=== PATIENT | female | born 1990 | race Two or more races ===

== ENCOUNTER 2020-05-16 13:51 | Outpatient (REF) | payer OTHER, SELFPAY | END 2020-05-16 13:52 | disposition home or self-care (01) | LOC: HO.LAB 13:51 | PROVIDERS: Visit Provider Internal Medicine | DX: Z20.822 Contact with and (suspected) exposure to COVID-19 (principal) | CPT/HCPCS: 36415; C9803; U0003 ==

== ENCOUNTER 2020-06-09 11:56 | Outpatient (REF) | payer OTHER, SELFPAY | END 2020-06-09 11:57 | disposition home or self-care (01) | LOC: HO.LAB 11:56 | PROVIDERS: Visit Provider Internal Medicine | DX: Z20.822 Contact with and (suspected) exposure to COVID-19 (principal) | CPT/HCPCS: 36415; C9803; U0003; U0005 ==

== ENCOUNTER 2023-06-03 09:28 | Outpatient (REF) | payer MEDICAID, SELFPAY ==
[2023-06-03 11:21] LABS: MANUAL DIFF FLAG NO
[2023-06-03 11:26] LABS: Basophils Absolute Auto 0.1 X10*3/uL (0.0-0.2); Basophils Percent Auto 0.7 % (0-2); Eosinophils Absolute Auto 0.2 X10*3/uL (0.0-0.4); Eosinophils Percent Auto 2.2 % (0-4); Hematocrit 44.4 % (37.0-47.0); Hemoglobin 14.3 g/dl (12.0-16.0); Imm Gran Abs Auto 0.01 X10*3/uL (0.00-0.03); Imm Gran Pct Auto 0.1 % (0.0-0.4); Lymphocytes Percent Auto 25.7 % (20-40); Mean Corpuscular HGB Conc 32.2 g/dl (31.0-35.0); Mean Corpuscular Hemoglobin 27.4 pg (27.0-33.0); Mean Corpuscular Volume 85.2 fL (80.0-98.0); Monocytes Absolute Auto 0.6 X10*3/uL (0.1-1.2); Monocytes Percent Auto 7.6 % (2-11); Neutrophils Absolute Auto 4.8 x10*3/uL (2.0-8.3); Neutrophils Percent Auto 63.7 % (45-73); Platelet Count 179 X10*3/uL (160-400); Red Blood Count 5.21 X10*6/uL (4.20-5.50); Red Cell Distribution Width 15.2 % (11.0-16.0); White Blood Count 7.6 X10*3/uL (4.8-10.8)
[2023-06-03 11:54] LABS: Estimated Average Glucose 105 mg/dL; Hemoglobin A1c % 5.3 % (<6.0)
[2023-06-03 12:27] LABS: Alanine Aminotransferase 44 U/L (0-31); Albumin Level 4.6 g/dL (3.5-5.0); Alkaline Phosphatase 74 U/L (39-117); Anion Gap 15 (12-20); Aspartate Amino Transferase 23 U/L (5-31); Bilirubin Total 0.3 mg/dL (0.0-1.0); Blood Urea Nitrogen 17 mg/dL (9-16); Calcium 10.1 mg/dL (8.4-10.2); Carbon Dioxide 24 mmol/L (22-29); Chloride 106 mmol/L (96-108); Cholesterol 216 mg/dL (<200); Estimated Glomerular Filt Rate > 60; Glucose Random 97 mg/dL (60-115); HDL Cholesterol 67 mg/dL (>40); LDL Cholesterol Calculated 127 mg/dL (<100); Potassium 4.4 mmol/L (3.3-5.1); Sodium 141 mmol/L (135-145); Total Protein 8.3 g/dL (6.5-8.0); Triglycerides 112 mg/dL (<150)
[2023-06-03 12:52] LABS: Ferritin 49 ng/mL (10-122); TSH reflex Free T4 2.45 uIU/mL (0.32-4.0); Vitamin D 25-OH Total 23.4 ng/mL (>30)
[2023-06-03 13:19] LABS: Syphilis Screen Nonreactive (Nonreactive)
[2023-06-03 13:45] LABS: Reflex LDLD? No
[2023-06-04 07:24] LABS: Follicle Stimulating Hormone 5.4 mIU/mL; Lutenizing Hormone 13.3 mIU/mL
[2023-06-05 19:33] LABS: C. trachomatis RNA TMA NOT DETECTED (NOT DETECTED); Candida glabrata RNA NOT DETECTED (NOT DETECTED); Candida species RNA NOT DETECTED (NOT DETECTED); N. gonorrhoeae RNA TMA NOT DETECTED (NOT DETECTED); Trichomonas vaginalis RNA NOT DETECTED (NOT DETECTED)
== END 2023-06-03 09:29 | disposition home or self-care (01) ==
LOC: HO.HHCL 09:28
PROVIDERS: Visit Provider Internal Medicine
DX: N93.8 Other specified abnormal uterine and vaginal bleeding (principal)
CPT/HCPCS: 36415; 80053; 80061; 81513; 82306; 82728; 83001; 83002; 83036; 84443; 85025; 86780; 87086; 87088; 87186; 87481; 87491; 87591; 87661

== ENCOUNTER 2023-07-19 10:03 | Outpatient (REF) | payer MEDICAID, SELFPAY ==
[2023-07-19 11:41] LABS: MANUAL DIFF FLAG NO
[2023-07-19 11:47] LABS: Basophils Absolute Auto 0.1 X10*3/uL (0.0-0.2); Basophils Percent Auto 0.8 % (0-2); Eosinophils Absolute Auto 0.2 X10*3/uL (0.0-0.4); Eosinophils Percent Auto 2.8 % (0-4); Hematocrit 42.8 % (37.0-47.0); Hemoglobin 13.9 g/dl (12.0-16.0); Imm Gran Abs Auto 0.03 X10*3/uL (0.00-0.03); Imm Gran Pct Auto 0.4 % (0.0-0.4); Lymphocytes Absolute Auto 1.7 X10*3/uL (1.2-4.9); Lymphocytes Percent Auto 22.4 % (20-40); Mean Corpuscular HGB Conc 32.5 g/dl (31.0-35.0); Mean Corpuscular Hemoglobin 27.3 pg (27.0-33.0); Mean Corpuscular Volume 83.9 fL (80.0-98.0); Mean Platelet Volume 11.3 fL (9.4-12.3); Monocytes Absolute Auto 0.5 X10*3/uL (0.1-1.2); Monocytes Percent Auto 7.2 % (2-11); Neutrophils Absolute Auto 4.9 x10*3/uL (2.0-8.3); Neutrophils Percent Auto 66.4 % (45-73); Platelet Count 219 X10*3/uL (160-400); Red Cell Distribution Width 15.9 % (11.0-16.0); White Blood Count 7.5 X10*3/uL (4.8-10.8)
[2023-07-19 12:14] LABS: Alanine Aminotransferase 103 U/L (0-31); Albumin Level 4.4 g/dL (3.5-5.0); Alkaline Phosphatase 86 U/L (39-117); Anion Gap 12 (12-20); Aspartate Amino Transferase 31 U/L (5-31); Bilirubin Total 0.4 mg/dL (0.0-1.0); Blood Urea Nitrogen 16 mg/dL (9-16); Calcium 9.5 mg/dL (8.4-10.2); Carbon Dioxide 26 mmol/L (22-29); Chloride 107 mmol/L (96-108); Cholesterol 222 mg/dL (<200); Estimated Glomerular Filt Rate > 60; Glucose Random 93 mg/dL (60-115); HDL Cholesterol 63 mg/dL (>40); LDL Cholesterol Calculated 144 mg/dL (<100); Potassium 4.7 mmol/L (3.3-5.1); Sodium 140 mmol/L (135-145); Total Protein 7.7 g/dL (6.5-8.0); Triglycerides 77 mg/dL (<150)
[2023-07-19 17:10] LABS: CT PCR NOT DETECTED (Not Detect.); NG PCR NOT DETECTED (Not Detect.)
[2023-07-22 09:20] LABS: RPR Rapid Plasma Reagin NON-REACTIVE (NON-REACTIVE)
[2023-07-23 19:43] LABS: HIV RNA PCR Qn Copies Not Detected Copies/mL; HIV RNA PCR Qn Log Copies Not Detected Log cps/mL
== END 2023-07-19 10:04 | disposition home or self-care (01) ==
LOC: HO.HHCL 10:03
PROVIDERS: Visit Provider Nurse Practitioner Family
DX: Z00.00 Encounter for general adult medical examination without abnormal findings (principal); N93.8 Other specified abnormal uterine and vaginal bleeding; E66.01 Morbid (severe) obesity due to excess calories
CPT/HCPCS: 0353U; 36415; 80053; 80061; 85025; 86592; 87536; 87900

== ENCOUNTER 2023-08-04 04:01 | Emergency (ER) | payer MEDICAID, SELFPAY ==
[2023-08-04 04:14] VITALS: BP 110/98; PULSE 100; O2SAT 93
[2023-08-04 04:16] VITALS: BP 104/68; PULSE 100; RESP 22; TEMP 37; O2SAT 100; BMI 46.3
--- NOTE | 2023-08-04 04:29 | ED_ITS ---
HPI - Nausea/Vomiting/Diarrhea General Chief complaint: Abdominal Pain Stated complaint: NAUSEA/VOMMITING Time Seen by Provider: 08/04/23 04:11 Source: patient and old records reviewed Mode of arrival: EMS Limitations: no limitations History of Present Illness HPI Narrative: 32 yo female with no sig PMH s/p tubal ligation ate shrimp and crab legs yesterday developed n/v/d and abdominal cramps since 8pm now feels weak and tired. Unable to keep anything down other than ice. No sick contacts, travel or any other exposures/antibiotic use. MD elicited complaint: nausea, vomiting, diarrhea and abdominal pain Onset (ago): day(s) (yesterday 8pm) Description of vomiting: food contents and watery Description of diarrhea: watery Associated nausea: Yes Associated abdominal pain: Yes Location of pain: diffuse Radiation: diffuse Pain consistency: intermittent Severity: moderate Quality: cramping Exacerbating factors: eating Relieving factors: none Context: possible food poisoning Associated symptoms: loss of appetite, malaise, nausea/vomiting and weakness Related Data Previous Rx's Medication Instructions Recorded ondansetron 4 mg disintegrating 4 mg PO Q8H PRN nausea and 08/04/23 tablet vomiting #20 tabs Allergies Allergy/AdvReac Type Severity Reaction Status Date / Time No Known Allergies Allergy Unverified 01/21/20 19:25 [No Known Allergies*] Review of Systems 2 Review of Systems: Constitutional : No Weight loss, No Fever, No Chills ENT/Mouth : No sore throat, No Rhinorrhea Eyes: No Swelling, No Redness Cardiovascular : No Chest Pain, No SOB, NoEdema Respiratory : No Cough, No Sputum, No Wheezing Gastrointestinal : Positive Nausea, Positive Vomiting, positive Diarrhea, positive abdominal Pain, No Hematochezia, No Melena Genitourinary : No Dysuria, No Urinary Frequency, No Hematuria, No Urgency Musculoskeletal : No joint pain, No Myalgias, No Joint Swelling Skin : No Skin Lesions, No rash Neuro : No Weakness, No Numbness, No Dizziness, No Headache Psych : No Anxiety/Panic, No Depression Heme/Lymph: No Bruising, No Lymphadenopathy Endocrine : No Polyuria, No Polydipsia All other systems reviewed and are negative. Gastrointestinal: Gastrointestinal: Reports nausea PMFSH Past Medical History Attestation statement: The following information was validated with the patient. Source: old records reviewed Medical History No pertinent past medical history Social History Social History (Updated 08/04/23 @ 04:46 by Theresa Bull DO) Patient Tobacco Use Status: Never used Tobacco Smoked in Last 30 Days: No Use of substances other than those prescribed or required for medical reasons: No Advance Directives: No Advance Directives Information Provided: No Physical Exam 2 Vital Signs: Vital Signs: Last Vital Signs Temp 98.6 F 08/04/23 04:16 Pulse 100 08/04/23 04:16 Resp 22 H 08/04/23 04:16 BP 104/68 08/04/23 04:16 Pulse Ox 100 08/04/23 04:16 O2 Del Method Room Air 08/04/23 04:16 BMI result Body Mass Index 46.3 Appearance: Alert. Oriented X3. No acute distress. Eyes: Pupils equal, round and reactive to light. ENT: Pharynx mildly dry MM Neck: Normal inspection. Neck supple. CVS: Normal heart rate and rhythm. Pulses normal. Respiratory: No respiratory distress. Breath sounds normal. Abdomen: Soft and nontender. Skin: Skin warm and dry. Normal skin color. Normal skin turgor. Extremities: No lower extremity edema. No calf ttp Neuro: Oriented X 3. No motor deficit. No sensory deficit. Medications Administered Discontinued Medications Generic Name Dose Route Start Last Admin Trade Name Freq PRN Reason Stop Dose Admin Diphenhydramine HCl 25 mg 08/04/23 04:24 08/04/23 04:36 Diphenhydramine Hcl 50 Mg/Ml Vial IVPUSH 08/04/23 04:25 25 mg ONCE ONE Administration Sodium Chloride 1,000 mls @ 999 mls/hr 08/04/23 04:30 08/04/23 04:36 Ns IV 08/04/23 05:30 999 mls/hr .Q1H1M JAMES Administration Sodium Chloride 1,000 mls @ 999 mls/hr 08/04/23 04:30 08/04/23 04:36 Ns IV 08/04/23 05:30 999 mls/hr .Q1H1M JAMES Administration Ketorolac Tromethamine 15 mg 08/04/23 04:24 08/04/23 04:35 Ketorolac Tromethamine 15 Mg/Ml Vial IVPUSH 08/04/23 04:25 15 mg ONCE ONE Administration Metoclopramide HCl 10 mg 08/04/23 04:24 08/04/23 04:36 Metoclopramide Hcl 10 Mg/2 Ml Vial IVPUSH 08/04/23 04:25 10 mg ONCE ONE Administration Medical Decision Making Medical Decision Making MDM Narrative: 32 yo female with no sig PMH here with c/o n/v/d and diffuse abdominal cramps at this time will need basic labs, IVF, supportive medications. She has no localized pain at this time to suggest acute appendicitis or cholecystitis. She is not toxic appearing. Differential Diagnosis Differential Diagnoses: The differential diagnosis associated with the presentation includes food toxicity, viral syndrome Admission/Observation Consideration of admission/observation: Escalation of care including admission/observation considered tolerating PO feels much better discussed slight elevation in blood sugar and she will follow up with her PCP, LFTs at baseline Lab Data MDM Lab Attestation statement: I reviewed the patient's lab results. 08/04/23 04:51 08/04/23 04:51 Labs: Lab Results 08/04/23 08/04/23 Range/Units 04:46 04:51 WBC 13.7 H (4.8-10.8) X10*3/uL RBC 5.11 (4.20-5.50) X10*6/uL Hgb 14.0 (12.0-16.0) g/dl Hct 42.9 (37.0-47.0) % MCV 84.0 (80.0-98.0) fL MCH 27.4 (27.0-33.0) pg MCHC 32.6 (31.0-35.0) g/dl RDW 15.7 (11.0-16.0) % Plt Count 220 (160-400) X10*3/uL MPV 10.2 (9.4-12.3) fL Immature Gran % (Auto) 0.6 H (0.0-0.4) % Neut % (Auto) 90.4 H (45-73) % Lymph % (Auto) 2.7 L (20-40) % [place] % (Auto) 5.0 (2-11) % Eos % (Auto) 0.9 (0-4) % Baso % (Auto) 0.4 (0-2) % Lymph # (Auto) 0.4 L (1.2-4.9) X10*3/uL [place] # (Auto) 0.7 (0.1-1.2) X10*3/uL Eos # (Auto) 0.1 (0.0-0.4) X10*3/uL Baso # (Auto) 0.1 (0.0-0.2) X10*3/uL Abs Immat Gran (auto) 0.08 H (0.00-0.03) X10*3/uL Absolute Neuts (auto) 12.4 H (2.0-8.3) x10*3/uL Absolute Nucleated RBC 0.000 (0.0-0.012) X10*3/uL Nucleated RBC % (auto) 0.0 (0.0-0.2) /100WBC Smear Tech's Comments VERIFIED Sodium 138 (135-145) mmol/L Potassium 3.8 (3.3-5.1) mmol/L Chloride 104 (96-108) mmol/L Carbon Dioxide 26 (22-29) mmol/L Anion Gap 12 (12-20) BUN 27 H (9-16) mg/dL Creatinine 0.82 (0.5-1.4) mg/dL Estim Creat Clear Calc 134.9 Estimated GFR > 60 Random Glucose 166 H (60-115) mg/dL Calcium 8.8 D (8.4-10.2) mg/dL Magnesium 2.1 (1.6-2.6) mg/dL Total Bilirubin 0.6 (0.0-1.0) mg/dL Direct Bilirubin 0.2 (0.0-0.5) mg/dL AST 32 H (5-31) U/L ALT 66 H (0-31) U/L Alkaline Phosphatase 77 (39-117) U/L Total Protein 7.2 (6.5-8.0) g/dL Albumin 4.1 (3.5-5.0) g/dL Lipase 11 (8-78) U/L Beta HCG, Quant < 2 mIU/mL Influenza Type A (PCR) NEGATIVE (Negative) Influenza Type B (PCR) NEGATIVE (Negative) RSV RNA Qual (PCR) NEGATIVE (Negative) SARS-CoV-2 RNA (RT-PCR) NEGATIVE (Negative) External Record Review External record reviewed: Inpatient record Prescription Management I considered prescription management with: Other Discharge Plan Discharge Clinical Impression: Abdominal pain, vomiting, and diarrhea Patient Disposition: Home, Self-Care Instructions: Acute Nausea and Vomiting (ED), Acute Diarrhea (ED) Additional Instructions: bland diet - bananas apple sauce rice toast yogurt stay hydrated advance diet slowly over 48 hours return for worsening symptoms or concerns - pain, fevers, inability to eat or drink, bloody stools or any other concerns. NEGATIVE FOR FLU COVID RSV Prescriptions: New ondansetron 4 mg tablet,disintegrating 4 mg PO Q8H PRN (Reason: nausea and vomiting) Qty: 20 0RF Stand Alone Forms: Work/School Release Print Language: Polish
[2023-08-04] MEDS: Ketorolac Tromethamine 15 MG/ML VIAL IVPUSH (04:35)
[2023-08-04] MEDS: 0.9 % Sodium Chloride 1,000 ML 999 ML IV ×2 (04:36)
[2023-08-04] MEDS: diphenhydrAMINE HCL 50 MG/ML VIAL 25 MG IVPUSH (04:36)
[2023-08-04] MEDS: Metoclopramide HCl 10 MG/2 ML VIAL IVPUSH (04:36)
--- NOTE | 2023-08-04 04:46 | PC.NURSE ---
Pt medicated per jul. Plan of care ongoing.
[2023-08-04 05:03] LABS: Basophils Absolute Auto 0.1 X10*3/uL (0.0-0.2); Basophils Percent Auto 0.4 % (0-2); Eosinophils Absolute Auto 0.1 X10*3/uL (0.0-0.4); Eosinophils Percent Auto 0.9 % (0-4); Hematocrit 42.9 % (37.0-47.0); Imm Gran Abs Auto 0.08 X10*3/uL (0.00-0.03); Imm Gran Pct Auto 0.6 % (0.0-0.4); Lymphocytes Absolute Auto 0.4 X10*3/uL (1.2-4.9); Lymphocytes Percent Auto 2.7 % (20-40); MANUAL DIFF FLAG SCAN; Mean Corpuscular HGB Conc 32.6 g/dl (31.0-35.0); Mean Corpuscular Hemoglobin 27.4 pg (27.0-33.0); Mean Platelet Volume 10.2 fL (9.4-12.3); Monocytes Absolute Auto 0.7 X10*3/uL (0.1-1.2); Neutrophils Absolute Auto 12.4 x10*3/uL (2.0-8.3); Neutrophils Percent Auto 90.4 % (45-73); Platelet Count 220 X10*3/uL (160-400); Red Blood Count 5.11 X10*6/uL (4.20-5.50); Red Cell Distribution Width 15.7 % (11.0-16.0); SCAN SMEAR FLAG 1; White Blood Count 13.7 X10*3/uL (4.8-10.8)
[2023-08-04 05:29] LABS: Alanine Aminotransferase 66 U/L (0-31); Albumin Level 4.1 g/dL (3.5-5.0); Alkaline Phosphatase 77 U/L (39-117); Anion Gap 12 (12-20); Aspartate Amino Transferase 32 U/L (5-31); Bilirubin Direct 0.2 mg/dL (0.0-0.5); Bilirubin Total 0.6 mg/dL (0.0-1.0); Blood Urea Nitrogen 27 mg/dL (9-16); Calcium 8.8 mg/dL (8.4-10.2); Carbon Dioxide 26 mmol/L (22-29); Chloride 104 mmol/L (96-108); Creatinine Clr Calc Pharmacy 134.9; Estimated Glomerular Filt Rate > 60; Glucose Random 166 mg/dL (60-115); Lipase 11 U/L (8-78); Magnesium 2.1 mg/dL (1.6-2.6); Potassium 3.8 mmol/L (3.3-5.1); Sodium 138 mmol/L (135-145); Total Protein 7.2 g/dL (6.5-8.0)
[2023-08-04 05:32] LABS: HCG Quantitative < 2 mIU/mL; SLIDE REVIEW VERIFIED
[2023-08-04 05:42] LABS: Influenza A PCR NEGATIVE (Negative); Influenza B PCR NEGATIVE (Negative); Resp Syncy Virus RNA Qual PCR NEGATIVE (Negative); SARS COV2 PCR INHOUSE NEGATIVE (Negative)
[2023-08-04 06:38] VITALS: BP 110/70; PULSE 100; RESP 12; TEMP 37; O2SAT 100
[2023-08-04 06:39] VITALS: BP 110/70; PULSE 100; RESP 12; TEMP 37; O2SAT 100
== END 2023-08-04 06:44 | disposition home or self-care (01) ==
PROVIDERS: Emergency Provider Emergency Medicine
DX: R10.9 Unspecified abdominal pain (principal); R11.10 Vomiting, unspecified; R19.7 Diarrhea, unspecified
CPT/HCPCS: 0241U; 36415; 80048; 80076; 83690; 83735; 84702; 85025; 96361; 96374; 96375; 99284; 99285; J1200; J1885; J2765

== ENCOUNTER 2023-08-07 12:07 | Outpatient (REF) | payer MEDICAID, SELFPAY ==
[2023-08-07 13:23] LABS: MANUAL DIFF FLAG NO
[2023-08-07 13:46] LABS: Basophils Absolute Auto 0.1 X10*3/uL (0.0-0.2); Basophils Percent Auto 0.5 % (0-2); Eosinophils Absolute Auto 0.2 X10*3/uL (0.0-0.4); Eosinophils Percent Auto 2.1 % (0-4); Hematocrit 42.6 % (37.0-47.0); Hemoglobin 13.9 g/dl (12.0-16.0); Imm Gran Abs Auto 0.06 X10*3/uL (0.00-0.03); Imm Gran Pct Auto 0.6 % (0.0-0.4); Lymphocytes Absolute Auto 2.5 X10*3/uL (1.2-4.9); Mean Corpuscular HGB Conc 32.6 g/dl (31.0-35.0); Mean Corpuscular Hemoglobin 27.5 pg (27.0-33.0); Mean Corpuscular Volume 84.2 fL (80.0-98.0); Mean Platelet Volume 11.5 fL (9.4-12.3); Monocytes Absolute Auto 0.7 X10*3/uL (0.1-1.2); Monocytes Percent Auto 7.3 % (2-11); Neutrophils Percent Auto 63.5 % (45-73); Platelet Count 226 X10*3/uL (160-400); Red Blood Count 5.06 X10*6/uL (4.20-5.50); Red Cell Distribution Width 15.8 % (11.0-16.0); White Blood Count 9.4 X10*3/uL (4.8-10.8)
[2023-08-07 14:09] LABS: Alanine Aminotransferase 75 U/L (0-31); Albumin Level 4.1 g/dL (3.5-5.0); Alkaline Phosphatase 85 U/L (39-117); Anion Gap 12 (12-20); Aspartate Amino Transferase 32 U/L (5-31); Bilirubin Total 0.2 mg/dL (0.0-1.0); Blood Urea Nitrogen 15 mg/dL (9-16); Calcium 9.3 mg/dL (8.4-10.2); Carbon Dioxide 25 mmol/L (22-29); Chloride 108 mmol/L (96-108); Estimated Glomerular Filt Rate > 60; Glucose Random 89 mg/dL (60-115); Lipase 18 U/L (8-78); Potassium 4.5 mmol/L (3.3-5.1); Sodium 140 mmol/L (135-145); Total Protein 7.8 g/dL (6.5-8.0)
[2023-08-08 07:24] LABS: HBS Num1 > 1000.00 mIU/mL (0-7.99); HBc Num1 0.07 S/CO (0.00-0.79); HBsAGNum1 0.33 S/CO (0.00-0.99); Hepatitis A Antibody IgM 0.23 Index (0-0.79); Hepatitis B Core Antibody Nonreactive (Nonreactive); Hepatitis B Surface Antigen Negative (Negative); ~HepC Num1 0.09 S/CO (0.00-0.79); ~Hepatitis A Antibody IgM Nonreactive (Nonreactive); ~Hepatitis B Surface Antibody REACTIVE (Nonreactive); ~Hepatitis C Antibody Nonreactive (Nonreactive)
[2023-08-09 02:32] LABS: C. trachomatis RNA TMA NOT DETECTED (NOT DETECTED); Candida glabrata RNA NOT DETECTED (NOT DETECTED); Candida species RNA NOT DETECTED (NOT DETECTED); N. gonorrhoeae RNA TMA NOT DETECTED (NOT DETECTED); Trichomonas vaginalis RNA NOT DETECTED (NOT DETECTED)
== END 2023-08-07 12:08 | disposition home or self-care (01) ==
LOC: HO.HHCL 12:07
PROVIDERS: Visit Provider Emergency Medicine
DX: R11.2 Nausea with vomiting, unspecified (principal)
CPT/HCPCS: 36415; 80053; 81513; 83690; 85025; 86704; 86706; 86709; 86803; 87086; 87147; 87340; 87481; 87491; 87591; 87661

== ENCOUNTER 2023-11-25 13:48 | Outpatient (REF) | payer MEDICAID, SELFPAY ==
[2023-11-26 02:08] LABS: CT PCR NOT DETECTED (Not Detect.); NG PCR NOT DETECTED (Not Detect.)
[2023-11-26 09:34] LABS: Bacterial Vaginosis PCR NEGATIVE (Negative); Candida Group PCR NOT DETECTED (Not Detect); Candida glab krusei PCR NOT DETECTED (Not Detect); Trichomonas vaginalis PCR NOT DETECTED (Not Detect)
[2023-11-27 22:38] LABS: TS Negative Control Passed; TS Panel A 2; TS Panel B 1; TS Positive Control Passed; TSpotTB Negative (Negative)
== END 2023-11-25 13:49 | disposition home or self-care (01) ==
LOC: HO.HHCL 13:48
PROVIDERS: Visit Provider Nurse Practitioner Family
DX: Z00.00 Encounter for general adult medical examination without abnormal findings (principal); N93.8 Other specified abnormal uterine and vaginal bleeding
CPT/HCPCS: 0352U; 36415; 86481; 87491; 87591

== ENCOUNTER 2024-01-29 10:00 | Outpatient (RCR) | payer MEDICAID, SELFPAY | END 2024-03-02 12:36 | disposition home or self-care (01) | LOC: HO.PT 10:00 | PROVIDERS: PCP Nurse Practitioner Family; Visit Provider Nurse Practitioner Family | DX: M54.9 Dorsalgia, unspecified (principal) | CPT/HCPCS: 97110; 97140; 97161 ==

== ENCOUNTER 2024-03-24 15:45 | Outpatient (REF) | payer MEDICAID, SELFPAY ==
[2024-03-24 17:31] LABS: MANUAL DIFF FLAG NO
[2024-03-24 17:36] LABS: Basophils Absolute Auto 0.1 X10*3/uL (0.0-0.2); Basophils Percent Auto 0.9 % (0-2); Eosinophils Absolute Auto 0.4 X10*3/uL (0.0-0.4); Hematocrit 41.6 % (37.0-47.0); Hemoglobin 13.5 g/dl (12.0-16.0); Imm Gran Abs Auto 0.04 X10*3/uL (0.00-0.03); Imm Gran Pct Auto 0.5 % (0.0-0.4); Lymphocytes Absolute Auto 2.6 X10*3/uL (1.2-4.9); Lymphocytes Percent Auto 31.8 % (20-40); Mean Corpuscular HGB Conc 32.5 g/dl (31.0-35.0); Mean Corpuscular Hemoglobin 27.2 pg (27.0-33.0); Mean Corpuscular Volume 83.9 fL (80.0-98.0); Mean Platelet Volume 11.1 fL (9.4-12.3); Monocytes Absolute Auto 0.7 X10*3/uL (0.1-1.2); Monocytes Percent Auto 9.2 % (2-11); Neutrophils Absolute Auto 4.3 x10*3/uL (2.0-8.3); Neutrophils Percent Auto 52.6 % (45-73); Platelet Count 257 X10*3/uL (160-400); Red Blood Count 4.96 X10*6/uL (4.20-5.50); Red Cell Distribution Width 15.8 % (11.0-16.0); White Blood Count 8.1 X10*3/uL (4.8-10.8)
[2024-03-24 18:29] LABS: Alanine Aminotransferase 40 U/L (0-31); Albumin Level 4.3 g/dL (3.5-5.0); Alkaline Phosphatase 81 U/L (39-117); Anion Gap 8 (12-20); Aspartate Amino Transferase 22 U/L (5-31); Bilirubin Total 0.2 mg/dL (0.0-1.0); Blood Urea Nitrogen 16 mg/dL (9-16); Calcium 9.8 mg/dL (8.4-10.2); Carbon Dioxide 29 mmol/L (22-29); Chloride 107 mmol/L (96-108); Estimated Glomerular Filt Rate > 60; Glucose Random 79 mg/dL (60-115); Potassium 3.9 mmol/L (3.3-5.1); Sodium 140 mmol/L (135-145); TSH reflex Free T4 1.94 uIU/mL (0.32-4.0); Total Protein 7.6 g/dL (6.5-8.0)
[2024-03-25 05:32] LABS: Estimated Average Glucose 105 mg/dL; Hemoglobin A1C 119.8125 umol/L; Hemoglobin A1c % 5.3 % (<6.0); Total Hemoglobin (HGBA1C) 3466.7182 umol/L
== END 2024-03-24 15:46 | disposition home or self-care (01) ==
LOC: HO.HHCL 15:45
PROVIDERS: Visit Provider Nurse Practitioner Family
DX: E66.01 Morbid (severe) obesity due to excess calories (principal)
CPT/HCPCS: 36415; 80053; 83036; 84443; 85025

== ENCOUNTER → 2024-04-07 08:05 | Outpatient (BNVA) | payer MEDICAID, SELFPAY | PROVIDERS: PCP Nurse Practitioner Family; Visit Provider Physician Assistant Surgical ==

== ENCOUNTER 2024-04-20 08:19 | Outpatient (AMB) | payer MEDICAID, SELFPAY ==
--- NOTE | 2024-04-20 10:09 | MHC.OFFVISWM ---
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* Core Blower Required: Yes [employer] Blower Services: [employer] Present Information Interpreted: clinical only Allergies tramadol Allergy (Severe, Verified 04/20/24 10:10) Anaphylaxis Medication List - Last Reconciled 04/20/24 by Harpreet Boggs MD albuterol sulfate 90 mcg/actuation (Ventolin HFA) 2 puffs inhalation Q4-6H PRN HPI 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*: Details: Start time: 10.10am, End time: 11.10am ?I spent 55 minutes speaking with the patient on the phone plus an additional 5 minutes reviewing and updating records for a total of 60 minutes HPI Comments Details: Previous weight loss efforts: Jenni for 4 months lost 10lbs which she regained and stopped due to side effects Wakes up: 5am, Sleeps: 8pm Breakfast: 7-9am (cheese, pierre, eggs) Lunch: 12pm (soups) Dinner: 5pm (rice, yum and chicken) Snacks: 7pm (cheese, cookies, almonds) Exercise: Vibrating machine Fluids: Coffee: 2/wk, tea: no, soda: 1/month, juice: none, ETOH: 1-2/month PFSH Medical History (Updated 04/20/24 @ 10:18 by Harpreet Boggs MD) Anxiety Asthma Morbid obesity No pertinent past medical history Surgical History (Updated 04/07/24 @ 08:28 by Marisela Henry CMA) Hx of oral surgery Hx of tubal ligation Family History (Updated 04/07/24 @ 08:29 by Marisela Henry CMA) Mother Cancer Thyroid condition Father Hypertension Son No problems noted. Social History (Updated 04/07/24 @ 08:29 by Marisela Henry CMA) Alcohol intake: current Alcohol intake frequency: holidays/special occasions only Patient Tobacco Use Status: Never used Tobacco Telehealth Telehealth Telehealth Platform: Telephone Location of provider rendering services: practice address Location of patient: address on file Patient Identification confirmed using: Name, : Yes Telehealth method: voice only Patient verbally consented to treatment: Yes Patient verbally consented to billing insurance company: Yes Patient informed of any privacy concerns related to visit: Yes Minutes spent on Phone/Video with Pt.: 60 Assessment & Plan Assessment & Plan (1) Morbid obesity: Code(s): E66.01 - Morbid (severe) obesity due to excess calories Category: Medical Plan: 1.? Plan for lap sleeve gastrectomy. If diaphragmatic or ventral hernias are present at time of surgery, these will be repaired laparoscopically as well. Risks and complications include possible conversion to an open procedure, anastomotic leak, bleeding requiring transfusion, small bowel obstruction, , DVT and pulmonary embolism, cardiac, or pulmonary complications, as intermediate complications such as anastomotic ulcer, insufficient weight loss and vitamin deficiencies. I emphasized the importance of close follow-up, adherence to instructions and good communication. 2. You will receive a link of our software brennan to generate an individualized nutritional and exercise plan specific for you. Please send me a screenshot of the plans you will generate Meal to include lean meat (beef, fish, pork, turkey, chicken), or hungarian yogurt, or egg whites, or beans with a salad with olive oil and fruits (berries, pears, apples, kiwi). Avoid salt, breads, potatoes, rice, pasta, desserts. ?3. If you choose shakes, each shake would be drunk slowly, like coffee in a period of 2 hours. ?4. If you choose bars, cut each bar in 4 pieces and eat each piece in 30min ?to make each bar last 2 hours. ?5. I emphasized the importance of measuring accurately the food portion and measure it when serving the food in plate ?6. The meal portions include a specific number of forks of meat and salad. You always eat the meat portion but you can replace up to half of salad/vegetables portion with rice, potatoes or pasta, or a fruit ?if you like. The less you do it the better weight loss will be. ?7. One full-size fork is what it can be scooped on the fork without falling aside and not what can be bit with the fork. Use regular forks like those you find in a typical restaurant. ?8.? Please buy the body composition scale we discussed and send me weight measurements as soon as possible and then once a week. Always include your diet and exercise plan. 9. The best choice would be to purchase a stationary bike, elliptical or treadmill at home that can track calories. Let me know if you do so I can give you an exercise plan. ?10.?It is important of avoiding and for at least 18 months postoperatively and has been discussed at the infosession. ?11. Goal is to lose at least 1.5-2lbs per week ?12. Goal to lose 10% of your weight before surgery, which is about 25lbs. Ultimate weight goal: 225lbs before surgery 13. Please follow the diet plan exactly without any change. If you don't like something about the plan or you feel hungry you need to communicate with me so I can help you revise the plan. You should not change the plan yourself. 14. To be scheduled for EGD on 05/05/24 due to the history of sleeve gastrectomy to assess the stomach's anatomy. The possibility of biopsies was discussed. Patient needs to avoid use of NSAIDs and aspirin for 1 week prior to EGD. You will be on liquids only the day before your endoscopy. Risks of perforation and bleeding was discussed with the patient. This will be an outpatient procedure with IV sedation. Orders: Orders H Pylori Breath Test Today E66.01 - Morbid (severe) obesity due to excess calories, J45.909 - Unspecified asthma, uncomplicated Complete Blood Count Auto Diff Today E66.01 - Morbid (severe) obesity due to excess calories, J45.909 - Unspecified asthma, uncomplicated Lipid Panel Today E66.01 - Morbid (severe) obesity due to excess calories, J45.909 - Unspecified asthma, uncomplicated Comprehensive Met. Panel Today E66.01 - Morbid (severe) obesity due to excess calories, J45.909 - Unspecified asthma, uncomplicated Vitamin B12 and Folate Today E66.01 - Morbid (severe) obesity due to excess calories, J45.909 - Unspecified asthma, uncomplicated C Reactive Protein Today E66.01 - Morbid (severe) obesity due to excess calories, J45.909 - Unspecified asthma, uncomplicated Vitamin B1 Today E66.01 - Morbid (severe) obesity due to excess calories, J45.909 - Unspecified asthma, uncomplicated TSH reflex Free T4 Today E66.01 - Morbid (severe) obesity due to excess calories, J45.909 - Unspecified asthma, uncomplicated Ferritin Today E66.01 - Morbid (severe) obesity due to excess calories, J45.909 - Unspecified asthma, uncomplicated Vitamin D 25-OH Total Today E66.01 - Morbid (severe) obesity due to excess calories, J45.909 - Unspecified asthma, uncomplicated ECG 12 lead EKG Today E66.01 - Morbid (severe) obesity due to excess calories, J45.909 - Unspecified asthma, uncomplicated Insulin Today E66.01 - Morbid (severe) obesity due to excess calories, J45.909 - Unspecified asthma, uncomplicated Hemoglobin A1c Today E66.01 - Morbid (severe) obesity due to excess calories, J45.909 - Unspecified asthma, uncomplicated IRON PROFILE Today E66.01 - Morbid (severe) obesity due to excess calories, J45.909 - Unspecified asthma, uncomplicated Zinc Today E66.01 - Morbid (severe) obesity due to excess calories, J45.909 - Unspecified asthma, uncomplicated Vitamin A Today E66.01 - Morbid (severe) obesity due to excess calories, J45.909 - Unspecified asthma, uncomplicated US abdomen comp w elastography Today E66.01 - Morbid (severe) obesity due to excess calories, J45.909 - Unspecified asthma, uncomplicated XR chest 2V Today E66.01 - Morbid (severe) obesity due to excess calories, J45.909 - Unspecified asthma, uncomplicated FL upper GI w air Today E66.01 - Morbid (severe) obesity due to excess calories, J45.909 - Unspecified asthma, uncomplicated Referrals Nutrition/Dietitian Referral E66.01 - Morbid (severe) obesity due to excess calories, J45.909 - Unspecified asthma, uncomplicated Behavioral Health Referral E66.01 - Morbid (severe) obesity due to excess calories, J45.909 - Unspecified asthma, uncomplicated
[2024-04-20 10:26] VITALS: BMI 40.3
== END 2024-04-20 11:11 | disposition home or self-care (01) ==
LOC: HO.HBS 08:19
PROVIDERS: PCP Nurse Practitioner Family; Visit Provider Surgery
DX: E66.813 Obesity, class 3 (principal); Z68.41 Body mass index [BMI] 40.0-44.9, adult
CPT/HCPCS: 99205

== ENCOUNTER → 2024-04-20 08:19 | Outpatient (BNVA) | payer MEDICAID, SELFPAY | PROVIDERS: PCP Nurse Practitioner Family; Visit Provider Surgery ==

== ENCOUNTER 2024-07-06 11:25 | Outpatient (REF) | payer MEDICAID, SELFPAY ==
--- OUTSIDE RECORDS SUMMARY | 2024-07-07 14:26 | XMS_ITS | Encounter Summary ---
Author Organization [employer] Address [address] [facility] [address] [place] [address] Care Team Providers Care Research Spec Name Role Phone Keiry West BANDSAW OPERATOR Primary Care Provider [phone] Yuliana Lin NP Primary Care Provider [phone] Reason for Visit * Reason Comments Med Refill Encounter Details Date Type Department Care Team ([facility] Contact Info) Description 08/28/2023 Refill [facility] [address] [place] [address] Blanquita Landers MD [address] [place] [address] Vitamin D deficiency Social History Tobacco Use Types Packs/Day Years Used Date Smoking Tobacco: Former Cigarettes Passive Smoke Exposure: Never Smokeless Tobacco: Never Comments:1-2 cigs per day x 3 months Alcohol Use Standard Drinks/Week Comments Never 0 (1 standard drink = 0.6 oz pur e alcohol) socially, Depression Answer Date Recorded Patient Health Questionnaire-9 Score 9 07/19/2023 Patient Health Questionnaire-9 Score 9 07/19/2023 Last PHQ-9: Questionnaire Data Not on file 0 07/19/2023 Housing Stability Answer Date Recorded What is your housing situation today? I have housing today, but I am worried about losing housing in the future 07/19/[address] you li ve. Do you have problems with any of the following? Oven or stove not working 07/19/2023 Food Insecurity Answer Date Recorded Within the past 12 months, y ou worried that your food would run out before you got money to buy more: Never True 07/12/2023 Within the past 12 months,th e food you bought just didn't last and you didn't have enough money to get more: Never True 12/2023 Transportation Answer Date Recorded In the past 12 months, has l ack of transportation kept you from medical appts, meetings, work or from getting things needed for daily living? No 07/12/2023 Utilities Answer Date Recorded In the past 12 months, has t he electric, gas, oil or water company threatened to shut off services in your home? I am not sure 07/19/2023 Depression Answer Date Recorded Patient Health Questionnaire-2 Score 2 07/19/2023 Comments No Sex and Gender Information Value Date Recorded Sex Assigned at Female 03/05/2022 10:34 AM EDT Legal Sex Female 10:27 AM EDT Gender Identity Female 06/03/2023 8:44 AM EST Sexual Orientation Straight 06/03/2023 8: 44 AM EST documented as of this encounter Plan of Treatment Upcoming Encounters Date Type Department Care Team (Late st Contact Info) Description 09/01/2024 11:30 AM EDT Office Visit [facility] [address] [place] [address] Yuliana Lin NP [address] [place] [address] documented as of this encounter Visit Diagnoses Diagnosis Vitamin D deficiency documented in this encounter Additional Health Concerns Assessment Noted Time PHQ-9 Depression Total Score: 9 07/19/19 24 9:57 AM EDT documented as of this encounter Care Teams Research Spec Relationship Specialty Start Date End Date Keiry West FNP [address] [place] [address] PCP - General Family Medicine 07/19/23 03/02/24 Yuliana Lin NP [address] [place] [address] PCP - General Family Medicine 03/24/24 documented as of this encounter
--- OUTSIDE RECORDS SUMMARY | 2024-07-07 14:26 | XMS_ITS | Encounter Summary ---
Author Organization [employer] Address [address] [facility] [address] [place] [address] Care Team Providers Care Cabin Furnishings Installer Name Role Phone Keiry WestP Primary Care Provider [phone] Yuliana Lin NP Primary Care Provider [phone] Reason for Visit * Reason Onset Date Comments Med Refill 11/24/2023 Encounter Details Date Type Department Care Team ([facility] st Contact Info) Description 11/24/2023 Refill [facility] [address] [place] [address] Keiry West FNP [address] [place] [address] Social History Tobacco Use Types Packs/Day Years [...] Description 09/01/2024 11:30 AM EDT Office Visit [facility] [address] [place] [address] Yuliana Lin NP [address] [place] [address] documented as of this encounter Visit Diagnoses Not on filedocumented in this encounter Additional Health Concerns Assessment Noted Time PHQ-9 Depression Total Score: 9 07/19/19 9:57 AM EDT documented as of this encounter Care Teams Cabin Furnishings Installer Relationship Specialty Start Date End Date Keiry West FNP [address] [place] [address] PCP - General Family Medicine 07/19/23 03/02/24 Yuliana Lin NP [address] [place] [address] PCP - General Family Medicine 03/24/24 documented as of this encounter
--- OUTSIDE RECORDS SUMMARY | 2024-07-07 14:26 | XMS_ITS | Clinical Summary ---
Author Organization [employer] Address [address] [facility] [address] [place] [address] Care Team Providers Care Rn Camp Name Role Phone Yuliana Lin CRISTOPHER Primary Care Provider [phone] Allergies Active Allergy Reactions Criticality Noted Date Comments Tramadol Unknown 11/02/2020 Medications budesonide (Pulmicort) 180 MCG/ACT inhaler Inhale 1 puff in the morning and at bedtime. Rinse mouth with water after use to reduce aftertaste and incidence of candidiasis. Do not swallow. 3 each 4 Active ketoconazole (NIZOral) 2 % shampooIndicati ons:Seborrheic dermatitis Apply topically 2 (two) times a week. 240 mL 1 4 Active acetaminophen (Tylenol) 500 MG tablet Take 2 tablets (1,000 mg) by mouth every 6 (six) hours if needed for moderate pain or fever for up to 25 doses. 40 tablet 5 Active albuterol 108 (90 Base) MCG/ACT inhaler Inhale 2 puffs every 4 (four) hours if needed for wheezing or shortness of breath. 18 g 3 5 Active Spacer/Aero-Hol ding Chambers (OptiChamber Radha) misc 1 each every 4 (four) hours if needed (asthma). 1 each 5 Active ibuprofen 400 MG tablet Take 1 tablet (400 mg) by mouth every 6 (six) hours if needed for moderate pain or fever for up to 30 doses. 30 tablet 5 Active fluticasone (Flonase Allergy Relief) 50 MCG/ACT nasal spray Administer 1 spray into each nostril Once per day. Shake gently. Before first use, prime pump. After use, clean tip and replace cap. 16 g 1 5 05/20/19 26 Active loratadine (Claritin) 10 MG tablet Take 1 tablet (10 mg) by mouth Once per day. 30 tablet 3 5 05/20/19 26 Active Tirzepatide-Rex ght Management (Zepbound) 5 MG/0.5ML solution auto-injectorIn dications:Morbi d obesity (CMS/HCC) Inject 0.5 mL (5 mg) under the skin 1 (one) time per week. 2 mL 1 5 08/01/19 25 Active Active Problems Problem Noted Date Diagnosed Date Morbid obesity 06/06/2024 Assessment & Plan (06/06/2024 11:44 AM EST): Continue zepbound, dose titrated q 4 weeks Lifestyle and nutrition recommendations reviewed FH: malignant neoplasm of ovary 06/06/2024 Assessment & Plan (06/06/2024 11:44 AM EST): In care with Wesley stunt driver, pt recently had imaging and labs Pap also managed via stunt driver Chronic bilateral thoracic back pain 06/05/2024 Assessment & Plan (06/06/2024 11:46 AM EST): Referral to surgery for consultation regarding breast reduction Healthcare maintenance 06/05/2024 Exercise counseling 06/05/2024 Assessment & Plan (06/06/2024 11:44 AM EST): Encouraged daily movement, working up to 30 minutes daily Dietary counseling 06/05/2024 Seborrheic dermatitis 03/24/2024 Assessment & Plan (03/29/2024 4:15 PM EST): Prescription shampoo as written below Constipation 09/13/2023 Family history of thyroid disease 09/13/2023 Overview (09/13/2023): Pt reports is no longer on medication per PCP thyroid results normal. Severe obesity 09/13/2023 Assessment & Plan (03/29/2024 4:14 PM EST): Pt tolerating wegovy but no sig wt reduction, Nutrition and exercise habits reviewed Will refer to bariatric surgery as well Anxiety disorder 07/10/2022 06/03/2023 Moderate depressive episode 07/10/2022 Dysmenorrhea 12/07/2021 Assessment & Plan (06/03/2023 9:27 AM EST): HCG is NEG today, RO PCOS, order labs to ro also STIs Will obtain pelvic US from [facility] and [facility] notes, she needs to fu with PCP Take Ibuprofen prn menstrual bleeding/pain, will consider OCPs if appropriate. Menorrhagia with regular cycle 12/07/2021 Asthma 11/02/2020 06/03/2023 Assessment & Plan (06/03/2023 9:26 AM EST): It seems to be controlled on albuterol prn only, patient said she has Inhaler at home FU w new PCP Obesity with body mass index 30 or greater 07/22 Overview (09/13/2023): Problem added by Discern Expert Encounter for supervision of normal in first trimester 12/01/2019 Overview (09/13/2023): Discuss HGB electrophoresis at OR [facility] OB-CMI score: 1 [12/01/2019] . Group PN care? * Rh * GC/Chlam * PAP Tdap * Flu * Hgb * GTT * 28 wk Repeat RPR * GBS * PPBC * screening * Acanthosis nigricans 01/21/2019 Family planning counseling 01/21/2019 Obesity (BMI 30.0-34.9) 01/21/2019 Resolved Problems Problem Noted Date Diagnosed Date Resolved Date Class 2 obesity 09/13/2023 06/06/2024 Encounters Date Type Department Care Team Description 07/06/2024 7:00 PM EST Office Visit [facility] WALK-IN [address] [address] Octaviano Thomas MD Viral URI with cough 07/06/2024 Travel 06/10/2024 Orders Only [facility] MEDICINE [address] [place] [phone] Liban Enrique MD 06/08/2024 2:30 PM EST Office Visit [facility] OPTOMETRY [address] [place] [address] Liliana PittsBRITTANY Hypermetropia, bilateral (Primary Dx) 06/08/2024 Travel 06/05/2024 9:00 AM EST Office Visit [address] [address] Yuliana Lin NP Healthcare maintenance (Primary Dx); Dietary counseling; Exercise counseling; Chronic bilateral thoracic back pain; Morbid obesity (CMS/HCC); Obesity with body mass index 30 or greater; Severe obesity (CMS/HCC); FH: malignant neoplasm of ovary 06/05/2024 Travel 06/04/2024 Travel 05/26/2024 Patient Outreach [facility] MEDICINE [address] [place] [phone] Yuliana Lin NP 05/26/2024 Patient Outreach [address] [address] Yuliana Lin NP Care Coordination ([address] Zuly Hurtado telephone call outreach) 05/22/2024 Patient Outreach [facility] PEDIATRICS [address] [place] [phone] Yuliana Lin NP Pre-visit Planning (SDOH Screening positive and Tobacco screening negative) 05/21/[address] [address] Lucille Sol MA Chart Prep 05/20/2024 8:40 AM EST Office Visit [facility] WALK-IN CENTER [address] [place] [phone] Filiberto Rios MD Influenza B (Primary Dx); Mild intermittent asthma with acute exacerbation 05/05/2024 Refill [facility] MEDICINE [address] [place] [phone] Yuliana Lin NP 05/05/[address] [address] Yuliana Lin NP Medication Question 04/10/[address] [phone] Katlin Oliveira RN Med Refill (Wegovy notification) from Last 3 Months Immunizations Name Administration Dates Next Due Hep B, adult 07/19/2023 Influenza, IIV3, injectable 12/01/2020,,03/03/2020 MMR 07/23/2020,07/22/2020 Pneumococcal Polysaccharide PPSV23 05/26/2021 Tdap 12/23/2020,05/10/2020 Family History Medical History Relation Name Comments Hypertension Father Uterine cancer Mother Relation Name Status Comments Father Mother Social History Tobacco Use Types Packs/Day Years Used Date Smoking Tobacco: Never Passive Smoke Exposure: Never Smokeless Tobacco: Never Tobacco Cessation:Counseling Given: Not Answered Comments:1-2 cigs per day x 3 months Alcohol Use Standard Drinks/Week Comments Never 0 (1 standard drink = 0.6 oz pur e alcohol) socially, Depression Answer Date Recorded Patient Health Questionnaire-9 Score 10 06/05/2024 Patient Health Questionnaire-9 Score 10 06/05/2024 Last PHQ-9: Questionnaire Data Not on file 0 06/05/2024 Housing Stability Answer Date Recorded What is your housing situation today? I have pavel diomedes 05/22/[address] you li ve. Do you have problems with any of the following? None of the above 05/22/2024 Food Insecurity Answer Date Recorded Within the past 12 months, y ou worried that your food would run out before you got money to buy more: Sometimes True 2024 Within the past 12 months,th e food you bought just didn't last and you didn't have enough money to get more: Sometimes True 05/22/2024 Transportation Answer Date Recorded In the past 12 months, has l ack of transportation kept you from medical appts, meetings, work or from getting things needed for daily living? No 07/12/2023 Utilities Answer Date Recorded In the past 12 months, has t he electric, gas, oil or water company threatened to shut off services in your home? No 05/22/2024 Depression Answer Date Recorded Patient Health Questionnaire-2 Score 2 06/05/2024 Internet Access Answer Date Recorded Internet Access Q1 Yes 05/22/2024 Internet Access Q2 Not on file 05/22/2024 Comments No Sex and Gender Information Value Date Recorded Sex Assigned at Female 03/05/2022 10:34 AM EDT Legal Sex Female 10:27 AM EDT Gender Identity Female 06/03/2023 8:44 AM EST Sexual Orientation Straight 06/03/2023 8: 44 AM EST Last Filed Vital Signs Vital Sign Reading Time Taken Comments Blood Pressure 120/85 07/06/2024 7:10 PM EST Pulse 97 07/06/2024 7:10 PM EST Temperature 37 ??C (98.6 ??F) 07/06/2024 7:10 PM EST Respiratory Rate 18 07/06/2024 7:10 PM EST Oxygen Saturation 99% 07/06/2024 7:10 PM EST Inhaled Oxygen Concentration - - Weight 113 kg (250 lb) 07/06/2024 7:10 PM EST Height 152.4 cm (5') 06/05/2024 9:06 AM EST Body Mass Index 48.82 06/05/2024 9:06 AM EST Plan of Treatment Upcoming Encounters Date Type Department Care Team (Late st Contact Info) Description 09/01/2024 11:30 AM EDT Office Visit [facility] MEDICINE [address] [place], [place] [phone] Yuliana Lin NP [address] [place], [place] [phone] Health Maintenance Due Date Last Done Comments Family Planning (PISQ) 2004 Pneumococcal Vaccine: Pediatrics (0 to 5 Years) and At-Risk Patients (6 to 49) Years) (2 of 2 - PCV) 05/26/2022 05/26/2021 Hepatitis B Vaccines (2 of 3 - 19+ 3-dose series) 08/16/2023 07/19/2023 COVID-19 Vaccine (2023- season) 2024 04/12/2021, 09/12/2020, 08/15/2020 Influenza Vaccine (#1) 2024 , 05/06/2020, 03/03/2020, Additional history exists Depression Monitoring (PHQ-9) 12/03/2024 06/05/2024, 06/05/2024 SDOH Screening 05/22/2025 05/22/2024 Alcohol/Substance Use Screening 06/05/2025 06/05/2024 Depression Screening 06/05/2025 06/05/2024, 06/05/19 Tobacco Screening 06/08/2025 06/08/2024 Lipid Panel 07/18/2028 07/19/2023, 06/03/2023 Cervical Cancer Screening 08/13/2028 HPV/Cotest 08/13/2028 Pap Smear 08/13/2028 08/14/2023 DTaP/Tdap/Td Vaccines (3 - Td or Tdap) 12/23/2030 12/23/2020, 05/10/2020 Zoster Vaccines (1 of 2) 11/30/2039 RSV Patients and Patients Aged 60 years or older (1 - 1-dose 75+ series) 2064 HIV Screening Completed 12/30/2020 Hepatitis C Screening Completed 08/07/2023 HIB Vaccines Aged Out No longer eligi ble based on patient's age to complete this topic HPV Vaccines Aged Out No longer eligi ble based on patient's age to complete this topic Hepatitis A Vaccines Aged Out No long er eligible based on patient's age to complete this topic IPV Vaccines Aged Out No longer eligi ble based on patient's age to complete this topic Meningococcal Vaccine Aged Out No jim nayeli eligible based on patient's age to complete this topic RSV under 20 months Aged Out No longe r eligible based on patient's age to complete this topic Rotavirus Vaccines Aged Out No longer eligible based on patient's age to complete this topic Procedures Procedure Name Priority Date/Time Associated Diagnosis Comments POCT INFLUENZA A (ID NOW RAPID MOLECULAR) Routine 07/06/2024 7:26 PM EST Viral URI with cough POCT RAPID COVID ANTIGEN Routine 07/06/2024 7:26 PM EST Viral URI with cough POCT INFLUENZA B (ID NOW RAPID MOLECULAR) Routine 07/06/2024 7:25 PM EST Viral URI with cough POC HEATH ID NOW STREP A Routine 07/06/2024 7:21 PM EST Viral URI with cough POCT INFLUENZA B (ID NOW RAPID MOLECULAR) Routine 05/20/2024 9:00 AM EST Influenza B POCT INFLUENZA A (ID NOW RAPID MOLECULAR) Routine 05/20/2024 9:00 AM EST Influenza B POCT RAPID STREP A Routine 05/20/2024 9: 00 AM EST Influenza B POCT RAPID COVID ANTIGEN Routine 05/20/2024 9:00 AM EST Influenza B HM PAP/HPV Routine 08/14/2023 11:27 AM EDT HEPATITIS PANEL, GENERAL Routine 08/07/2023 12:12 PM EDT Nausea and vomiting, unspecified vomiting type LIPID PANEL, STANDARD Routine 07/19/2023 10:10 AM EDT Class 3 severe obesity due to excess calories without serious comorbidity in adult, unspecified BMI (CMS/HCC) from Last 3 Months or Most Recently Relevant to Health Maintenance Results * POCT Rapid Influenza A HEATH ID NOW (07/06/2024 7:26 PM EST) Only the most recent of2 resultswithin the time period is included. [facility] Influenza A Negative Negative, Indeterminate [facility] QC Media Lot # [id number] [facility] Lot# Expiration Date [facility] Swab 07/06/2024 7:26 PM EST us Octaviano Thomas MD POINT OF CARE TEST ENTER/EDIT OR DERABLES Final Result [facility] [address] [place] [phone] * POCT Rapid Covid-19 BinaxNOW (07/06/2024 7:26 PM EST) Only the most recent of2 resultswithin the time period is included. [facility] Rapid COVID Ag Negative QC Media Lot # [id number] Lot# Expiration Date [id number] Swab 07/06/2024 7:26 PM EST us Octaviano Thomas MD POINT OF CARE TEST ENTER/EDIT OR DERABLES Final Result * POCT Rapid Influenza B HEATH ID NOW (07/06/2024 7:25 PM EST) Only the most recent of2 resultswithin the time period is included. Influenza B Negative Negative, Indeterminate [facility] QC Media Lot # [id number] [facility] Lot# Expiration Date [facility] Swab 07/06/2024 7:25 PM EST Octaviano Thomas MD POINT OF CARE TEST ENTER/EDIT OR DERABLES Final Result Performing Organization Address [facility] de Phone Number [facility] [address] [place] [phone] * POCT Rapid Strep A HEATH ID NOW (07/06/2024 7:21 PM EST) Rapid Strep A Screen Negative Negative, None Detected QC Media Lot # [id number] Lot# Expiration Date Swab 07/06/2024 7:21 PM EST us Octaviano Thomas MD POINT OF CARE TEST ENTER/EDIT OR DERABLES Final Result * POCT rapid strep A manually resulted (05/20/2024 9:00 AM EST) Rapid Strep A Screen Negative Negative, None Detected [facility] Swab 05/20/2024 9:00 AM EST us Filiberto Rios MD POINT OF CARE TEST ENTER/EDIT OR DERABLES Final Result Performing Organization Address [facility] Co de Phone Number [facility] [address] [place] [phone] * HM PAP/HPV (08/14/2023 11:27 AM EDT) Historical Provider HEALTH MAINTENANCE Final Result * Hepatitis Panel, General (08/07/2023 12:12 PM EDT) Hepatitis A IgM Nonreactive Nonreactive [facility] Comment:IgM antibodies to MARTINEZ V not detected; does not exclude earlyacute or recovered HAV infection. ~Hepatitis B Surface Antibody REACTIVE Nonreactive [facility] Comment:REACTIVE: > 11.99 mI U/mL Hepatitis B Core Antibody Nonreactive Nonreactive [facility] Hepatitis C Antibody Nonreactive Nonreactive [facility] Comment:Antibodies to HCV no t detected; does not exclude early acuteHCV infection. Hepatitis B Surface Ag Negative Negative [facility] Blood 08/07/2023 12:1 2 PM EDT 08/07/2023 1:20 PM EDT Angie Hager [facility] BLOOD ORDERABLES Final Res ult [facility] [address] [place] [address] [phone] * (ABNORMAL) Lipid Panel, Standard (07/19/2023 10:10 AM EDT) Triglycerides 77 <150 mg/dL [facility] Comment:Desirable Triglyceri de: less than 150 mg/dLBorderline High Triglyceride 150-199 mg/dLHigh Triglyceride: 200-499 mg/dLVery High Triglyceride: greater than or equal to 5OO mg/dL Cholesterol 222(H) <200 mg/dL [facility] Comment:Desirable Cholestero l: less than 200 mg/dLBorderline High Cholesterol: 200-239 mg/dLHigh Cholesterol: greater than 239 mg/dL LDL Cholesterol Calculated 144(H) <100 mg/dL [facility] Comment:Desirable LDL: less than 100 mg/dLNear Optimal/Above Optimal LDL: 110- 129 mg/dLBorderline High LDL: 130-159 mg/dLHigh LDL: 160-189 mg/dLVery High LDL: greater than or equal to 190 mg/dL HDL Cholesterol 63 >40 mg/dL [facility] Comment:Desirable HDL: great er than 40 mg/dL Note: This HDL assay may give artificially low results in patients with liver disease. Blood Venous blood specimen / Unknown 07/19/2023 10:10 AM EDT 07/19/2023 11:30 AM EDT Keiry Brett [facility] BLOOD ORDERABLES Final Resu lt [facility] [address] [place] [phone] from Last 3 Months or Most Recently Relevant to Health Maintenance Insurance [facility] C3 Care Teams Rn Camp Relationship Specialty Start Date End Date Yuliana Lin NP [address] [place] [phone] PCP - General Family Medicine 03/24/24
--- OUTSIDE RECORDS SUMMARY | 2024-07-07 14:26 | XMS_ITS | Encounter Summary ---
Author Organization [employer] Address [address] [place] [address] Care Team Providers Care Stunt Woman Name Role Phone Yuliana Lin CRISTOPHER Primary Care Provider [phone] Reason for Visit * Reason Comments Walk-In Sore throat / cough Encounter Details Date Type Department Care Team ([facility] Contact Info) Description 07/06/2024 7:00 PM EST Office Visit [facility] [address] [place] [address] Octaviano Thomas MD [address] [place] [address] Viral URI with cough Social History Tobacco Use Types Packs/Day Years [...] your housing situation today? I have pavel hercules 05/22/[address] you li [...] AM EST documented as of this encounter Last Filed Vital Signs Vital Sign Reading Time Taken Comments Blood Pressure 120/85 07/06/2024 7:10 PM EST Pulse 97 07/06/2024 7:10 PM EST Temperature 37 ??C (98.6 ??F) 07/06/2024 7:10 PM EST Respiratory Rate 18 07/06/2024 7:10 PM EST Oxygen Saturation 99% 07/06/2024 7:10 PM EST Inhaled Oxygen Concentration - - Weight 113 kg (250 lb) 07/06/2024 7:10 PM EST Height - - Body Mass Index 48.82 06/05/2024 9:06 AM EST documented in this encounter Progress Notes * Octaviano Thomas MD - 07/06/2024 7:00 PM EST Subjective History was provided by the patient. Zee Esparza is a 33 y.o. female who presents for evaluation of symptoms of a URI. Symptoms include cough, fever, myalgia, runny nose, congestion, sore throat, and nausea. Onset of symptoms was 2days ago, unchanged since that time. Associated negative symptoms include vomiting, diarrhea, ear pain, sinus pain, and rash. Evaluation to date: none. Treatment to date: none Objective Vitals: 07/06/24 1910 BP: 120/85 BP Location: Right arm Patient Position: Sitting BP Cuff Size: Large adult Pulse: 97 Resp: 18 Temp: 98.6 ??F (37 ??C) TempSrc: Oral SpO2: 99% Weight: 250 lb (113 kg) Physical Exam Vitals reviewed. Constitutional: Appearance: Normal appearance. She is normal weight. HENT: Head: Normocephalic and atraumatic. Right Ear: Tympanic membrane, ear canal and external ear normal. Left Ear: Tympanic membrane, ear canal and external ear normal. Nose: Nose normal. No congestion or rhinorrhea. Mouth/Throat: Mouth: Mucous membranes are dry. Pharynx: Oropharynx is clear. Posterior oropharyngeal erythema present. No oropharyngeal exudate. Eyes: Extraocular Movements: Extraocular movements intact. Conjunctiva/sclera: Conjunctivae normal. Pupils: Pupils are equal, round, and reactive to light. Cardiovascular: Rate and Rhythm: Normal rate and regular rhythm. Heart sounds: Normal heart sounds. Pulmonary: Effort: Pulmonary effort is normal. Breath sounds: Normal breath sounds. Musculoskeletal: General: Normal range of motion. Cervical back: Normal range of motion and neck supple. Lymphadenopathy: Cervical: No cervical adenopathy. Skin: General: Skin is warm and dry. Neurological: General: No focal deficit present. Mental Status: She is alert and oriented to person, place, and time. Mental status is at baseline. Psychiatric: Mood and Affect: Mood normal. Behavior: Behavior normal. Thought Content: Thought content normal. Judgment: Judgment normal. Office Visit on 07/06/2024 Component Date Value Ref Range Status Rapid COVID Ag 07/06/2024 Negative Final QC Media Lot # 07/06/2024 [id number] Final Lot# Expiration Date 07/06/2024 71,826 Final Influenza A 07/06/2024 Negative Negative, Indeterminate Final QC Media Lot # 07/06/2024 [id number] Final Lot# Expiration Date 07/06/2024 10,826 Final Influenza B 07/06/2024 Negative Negative, Indeterminate Final QC Media Lot # 07/06/2024 [id number] Final Lot# Expiration Date 07/06/2024 10,826 Final Rapid Strep A Screen 07/06/2024 Negative Negative, None Detected Final QC Media Lot # 07/06/2024 [id number] Final Lot# Expiration Date 07/06/2024 12,526 Final Zee was seen today for walk-in. Diagnoses and all orders for this visit: Viral URI with cough - POCT Rapid Covid-19 BinaxNOW - POCT Rapid Influenza A HEATH ID NOW - POCT Rapid Influenza B HEATH ID NOW - POCT Rapid Strep A HEATH ID NOW - Culture, Throat Patient with a clinical presentation of viral URI Normal pulmonary exam and no respiratory distress O2 sat reassuring Rapid COVID-19, Influenza A/B, and Strep tests all negative today Will send out Throat Culture Discussed supportive care with ample hydration, sleep position and rest OTC supportive medications reviewed Droplet precautions discussed Advised to contact the clinic if no improvement of symptoms Indications for UC/ER use reviewed Work note provided documented in this encounter Plan of Treatment Upcoming Encounters Date Type Department Care Team ([facility] st Contact Info) Description 09/01/2024 11:30 AM EDT Office Visit [facility] [address] [place], [place] [phone] Yuliana Lin NP [address] [place], [place] [phone] Scheduled Orders Name Type Priority Associated Diagnoses Orde r Schedule Culture, Throat Microbiology Routine Viral URI with cough Ordered: 07/06/2024 documented as of this encounter Procedures Procedure Name Priority Date/Time Associated Diagnosis [...] 7:21 PM EST Viral URI with cough documented in this encounter Results * POCT Rapid Influenza A HEATH ID NOW (07/06/2024 7:26 PM EST) [facility] Signature Influenza A Negative Negative, Indeterminate [facility] QC Media Lot # [id number] [facility] Lot# Expiration Date [facility] Swab 07/06/2024 7:26 PM EST us Octaviano Thomas MD POINT OF CARE TEST ENTER/EDIT OR DERABLES Final Result Performing Organization Address [facility] Co de Phone Number [facility] [address] [place] [phone] * POCT Rapid Covid-19 BinaxNOW (07/06/2024 7:26 PM EST) [facility] Rapid COVID Ag Negative QC Media Lot # [id number] Lot# Expiration Date Swab 07/06/2024 7:26 PM EST Octaviano Thomas MD POINT OF CARE TEST ENTER/EDIT OR DERABLES Final Result * POCT Rapid Influenza B HEATH ID NOW (07/06/2024 7:25 PM EST) [facility] Influenza B Negative Negative, Indeterminate [facility] QC Media Lot # [id number] [facility] Lot# Expiration Date [facility] Swab 07/06/2024 7:25 PM EST us Octaviano Thomas MD POINT OF CARE TEST ENTER/EDIT OR DERABLES Final Result Performing Organization Address [facility] Co de Phone Number [facility] [address] [place] [phone] * POCT Rapid Strep A HEATH ID NOW (07/06/2024 7:21 PM EST) [facility] Rapid Strep A Screen Negative Negative, None Detected QC Media Lot # [id number] Lot# Expiration Date Swab 07/06/2024 7:21 PM EST us Octaviano Thomas MD POINT OF CARE TEST ENTER/EDIT OR DERABLES Final Result documented in this encounter Visit Diagnoses Diagnosis Viral URI with cough documented in this encounter Additional Health Concerns Assessment Noted Time PHQ-9 Depression Total Score: 10 025 10:49 AM EST documented as of this encounter Care Teams Stunt Woman Relationship Specialty Start Date End Date Yuliana Lin NP [address] [place] [address] PCP - General Family Medicine 03/24/24 documented as of this encounter
--- OUTSIDE RECORDS SUMMARY | 2024-07-07 14:26 | XMS_ITS | Encounter Summary ---
Author Organization [employer] Address [address] [facility] 7t [place] [address] Care Team Providers Care Trimmer Buffing Wheel Name Role Phone Yuliana Lin CRISTOPHER Primary Care Provider [phone] Encounter Details Date Type Department Care Team (Latest Contact Info) Description 07/06/2024 Travel Social History Tobacco Use Types Packs/Day Years [...] Description 09/01/2024 11:30 AM EDT Office Visit [facility] [address] [place] [address] Yuliana Lin NP [address] [place] [address] documented as of this encounter Visit Diagnoses Not on filedocumented in this encounter Additional Health Concerns Assessment Noted Time PHQ-9 Depression Total Score: 10 025 10:49 AM EST documented as of this encounter Care Teams Trimmer Buffing Wheel Relationship Specialty Start Date End Date Yuliana Lin NP [address] [place] [address] PCP - General Family Medicine 03/24/24 documented as of this encounter
--- OUTSIDE RECORDS SUMMARY | 2024-07-07 14:26 | XMS_ITS | Encounter Summary ---
Author Organization [employer] Address [address] [facility] [address] 7[address] [place] [address] Care Team Providers Care Direct Service Worker Name Role Phone Yuliana Lin CRISTOPHER Primary Care Provider [phone] Encounter Details Date Type Department Care Team (Late st Contact Info) Description 06/10/2024 Orders Only [facility] MEDICINE [address] [place] [address] Provider, MD Liban Social History Tobacco Use Types Packs/Day Years [...] t he electric, gas, oil or water abcdexperts threatened to shut off services in your [...] Description 09/01/2024 11:30 AM EDT Office Visit [facility] [address] [place] [address] Yuliana Lin NP [address] [place] [address] documented as of this encounter Procedures Procedure Name Priority Date/Time Associated Diagnosis Comments HM PAP/HPV Routine 08/14/2023 11:27 AM EDT documented in this encounter Results * HM PAP/HPV (08/14/2023 11:27 AM EDT) Historical Provider HEALTH MAINTENANCE Final Result documented in this encounter Visit Diagnoses Not on filedocumented in this encounter Additional Health Concerns Assessment Noted Time PHQ-9 Depression Total Score: 10 025 10:49 AM EST documented as of this encounter Care Teams Direct Service Worker Relationship Specialty Start Date End Date Yuliana Lin NP [address] [place] [address] PCP - General Family Medicine 03/24/24 documented as of this encounter
--- OUTSIDE RECORDS SUMMARY | 2024-07-07 14:26 | XMS_ITS | Encounter Summary ---
Author Organization [employer] Address [address] [facility] [address] 7[address] [place] [address] Care Team Providers Care Oncology Rep Name Role Phone Yuliana Lin CRISTOPHER Primary Care Provider Encounter Details Date Type Department Care Team (Late st Contact Info) Description 06/08/2024 2:30 PM EST Office Visit [facility] [address] [place], [place] [id number] Liliana Pitts, OD [address] [place], [place] [phone] Hypermetropia, bilateral (Primary Dx) Social History Tobacco Use Types Packs/Day Years [...] AM EST documented as of this encounter Progress Notes * Liliana Pitts, OD - 06/08/2024 2:30 PM EST Eye Care Progress Note Patient ID: Zee Esparza is a 33 y.o. female. HPI Patient reports blurry vision both eyes (OU) at distance. Patient previously had reading glasses but does not feel like she needs them anymore. GISELE: 3-4 years ago Last edited by Liliana Pitts, OD on 06/08/2024 3:05 PM. Current Outpatient Medications Medication Sig Dispense Refill acetaminophen (Tylenol) 500 MG tablet Take 2 tablets (1,000 mg) by mouth every 6 (six) hours if needed for moderate pain or fever for up to 25 doses. 40 tablet 0 albuterol 108 (90 Base) MCG/ACT inhaler Inhale 2 puffs every 4 (four) hours if needed for wheezing or shortness of breath. 18 g 3 budesonide (Pulmicort) 180 MCG/ACT inhaler Inhale 1 puff in the morning and at bedtime. Rinse mouthwith water after use to reduce aftertaste and incidence of candidiasis. Do not swallow. 3 each 0 fluticasone (Flonase Allergy Relief) 50 MCG/ACT nasal spray Administer 1 spray into each nostril Once per day. Shake gently. Before first use, prime pump. After use, clean tip and replace cap. 16 g 1 ibuprofen 400 MG tablet Take 1 tablet (400 mg) by mouth every 6 (six) hours if needed for moderate pain or fever for up to 30 doses. 30 tablet 0 ketoconazole (NIZOral) 2 % shampoo Apply topically 2 (two) times a week. 240 mL 1 loratadine (Claritin) 10 MG tablet Take 1 tablet (10 mg) by mouth Once per day. 30 tablet 3 Spacer/Aero-Holding Chambers (OptiChamber Radha) misc 1 each every 4 (four) hours if needed (asthma). 1 each 0 Tirzepatide-Weight Management (Zepbound) 5 MG/0.5ML solution auto-injector Inject 0.5 mL (5 mg) under the skin 1 (one) time per week. 2 mL 1 No current facility-administered medications for this visit. Past Medical History: Diagnosis Date Anxiety Asthma Obesity Past Surgical History: Procedure Laterality Date TUBAL LIGATION 2020 [facility] Family History Problem Relation Name Age of Onset Uterine cancer Mother Hypertension Father Tobacco Use: Low Risk (06/08/2024) Tobacco Smoking Tobacco Use: Never Smokeless Tobacco Use: Never Passive Exposure: Never Recent Concern: Tobacco Use - Medium Risk (05/20/2024) Tobacco Smoking Tobacco Use: Former Smokeless Tobacco Use: Never Passive Exposure: Never Allergies Allergen Reactions Tramadol Unknown ROS Positive for: Eyes Negative for: Constitutional, Gastrointestinal, Neurological, Skin, Genitourinary, Musculoskeletal,HENT, Endocrine, Cardiovascular, Respiratory, Psychiatric, Allergic/Imm, Heme/Lymph Last edited by Liliana Pitts OD on 06/08/2024 2:14 PM. Base Eye Exam Visual Acuity (Snellen - Linear) Right Left Dist sc 20/20 20/20 Tonometry (iCare , 2:26 PM) Right Left Pressure 16 16 Pupils Pupils APD Right PERRL None Left PERRL None Visual Gardner (Counting fingers) Left Right Full Full Extraocular Movement Right Left Full Full Neuro/Psych Oriented x3: Yes Mood/Affect: Normal Dilation Both eyes: 1.0% tropicamide @ 2:26 PM Slit Lamp and Fundus Exam External Exam Right Left External Normal Normal Slit Lamp Exam Right Left Lids/Lashes Clean and clear Clean and clear Conjunctiva/Sclera White and quiet White and quiet Cornea Clear Clear Anterior Chamber Deep and quiet, angles open Deep and quiet, angles open Iris Flat, round Flat, round Lens Clear Clear Fundus Exam Right Left Vitreous Clear Clear Disc What Cheer and healthy What Cheer and healthy C/D Ratio Vertical 0.20 0.25 C/D Ratio Horizontal 0.20 0.25 Macula Flat, even pigmentation Flat, even pigmentation Vessels AV 2/3, normal course and caliber AV 2/3, normal course and caliber Periphery No holes/tears/detachments 360 No holes/tears/detachments 360 Refraction Manifest Refraction (Subjective) Sphere Cylinder [place] Dist VA Right +1.00 -0.50 135 20/20 Left +1.00 20/20 Final Rx Sphere Cylinder [place] Right +0.75 -0.25 160 Left +0.75 Sphere Expiration Date: 06/08/2026 Assessment and Plan Diagnoses and all orders for this visit: Hypermetropia, bilateral - Dispensed updated spec Rx - Ocular health WNL OU RTC in 2 years for comprehensive eye exam or sooner as needed Liliana Pitts, OD 06/08/2024, 3:06 PM Wire Strander Source: __ None _x_ Bilingual Staff __ Qualified Staff Department Store Door Greeter __ Telephone Wire Strander; ID# __ Wire Strander brought by patient (family member, friend, AIRVEYOR OPERATOR, etc) __ In person instructional aide __ Ipad Wire Strander; ID#: Language Spoken During Exam: Swedish documented in this encounter Plan of Treatment Upcoming Encounters Date Type Department Care Team (Late st Contact Info) Description 09/01/2024 11:30 AM EDT Office Visit [facility] [address] [place] [address] Yuliana Lin NP [address] [place] [address] documented as of this encounter Visit Diagnoses Diagnosis Hypermetropia, bilateral- Primary documented in this encounter Additional Health Concerns Assessment Noted Time PHQ-9 Depression Total Score: 10 025 10:49 AM EST documented as of this encounter Care Teams Oncology Rep Relationship Specialty Start Date End Date Yuliana Lin NP [address] [place] [address] PCP - General Family Medicine 03/24/24 documented as of this encounter
--- OUTSIDE RECORDS SUMMARY | 2024-07-07 14:26 | XMS_ITS | Encounter Summary ---
Author Organization [employer] Address [address] [facility] 7t [place] [address] Care Team Providers Care Rent Collector Name Role Phone Yuliana Lin CRISTOPHER Primary Care Provider [phone] Encounter Details Date Type Department Care Team (Latest Contact Info) Description 06/08/2024 Travel Social History Tobacco Use Types Packs/Day [...] Description 09/01/2024 11:30 AM EDT Office Visit [facility] [address] [place] [address] Yuliana Lin NP [address] [place] [address] documented as of this encounter Visit Diagnoses Not on filedocumented in this encounter Additional Health Concerns Assessment Noted Time PHQ-9 Depression Total Score: 10 025 10:49 AM EST documented as of this encounter Care Teams Rent Collector Relationship Specialty Start Date End Date Yuliana Lin NP [address] [place] [address] PCP - General Family Medicine 03/24/24 documented as of this encounter
--- OUTSIDE RECORDS SUMMARY | 2024-07-07 14:26 | XMS_ITS | Encounter Summary ---
Author Organization [employer] Address [address] [facility] [address] [place] [address] Care Team Providers Care Licensed Prosthetist/Orthotist Name Role Phone Yuliana Lin NP Primary Care Provider [phone] Reason for Visit * Reason Comments Med Refill Encounter Details Date Type Department Care Team ([facility] st Contact Info) Description 05/05/2024 Refill [facility] [address] [place] [address] Yuliana Lin NP [address] [place] [address] Social History Tobacco Use Types Packs/Day Years [...] Description 09/01/2024 11:30 AM EDT Office Visit [facility] [address] [place] [address] Yuliana Lin NP [address] [place] [address] documented as of this encounter Visit Diagnoses Not on filedocumented in this encounter Additional Health Concerns Assessment Noted Time PHQ-9 Depression Total Score: 9 07/19/19 24 9:57 AM EDT documented as of this encounter Care Teams Licensed Prosthetist/Orthotist Relationship Specialty Start Date End Date Yuliana Lin NP [address] [place] [address] PCP - General Family Medicine 03/24/24 documented as of this encounter
--- OUTSIDE RECORDS SUMMARY | 2024-07-07 14:26 | XMS_ITS | Clinical Summary ---
Author Organization [employer] [facility] it Address [address] [place] [address] Care Team Providers Care Strawhat Sizer Name Role Phone Unavailable Primary Care Provider Unavailabl e Social History Tobacco Use Types Packs/Day Years Used Date Smoking Tobacco: Never Assessed Comments Unknown Sex and Gender Information Value Date Recorded Sex Assigned at Not on file Legal Sex Female 12:16 PM EST Gender Identity Not on file Sexual Orientation Not on file Plan of Treatment Health Maintenance Due Date Last Done Comments DTaP,Tdap,and Td Vaccines (1 - Tdap) 2008 Hepatitis B Vaccines (1 of 3 - 19+ 3-dose series) 2008 Cervical Cancer Screening: P ap Smear 2010 COVID-19 Vaccine ( - 2023-2 5 season) 2024 Influenza Vaccine (#1) 2024 HIB Vaccines Aged Out No longer eligi [...] on patient's age to complete this topic MMR Vaccines Aged Out No longer eligi ble based on patient's age to complete this topic Meningococcal ACWY Vaccine Aged Out N o longer eligible based on patient's age to complete this topic Meningococcal B Vacine Aged Out No lo nger eligible based on patient's age to complete this topic Pneumococcal Vaccine: Pediat rics (0 to 5 Years) and At-Risk Patients (6 to 64 Years) Aged Out No longer eligible b ased on patient's age to complete this topic RSV Immunization Patients Un mino 20 months Aged Out No longer eligible b ased on patient's age to complete this topic Varicella Vaccines Aged Out No longer eligible based on patient's age to complete this topic
--- OUTSIDE RECORDS SUMMARY | 2024-07-07 14:26 | XMS_ITS | Encounter Summary ---
Author Organization [employer] Address [address] [facility] [address] [place] [address] Care Team Providers Care Mixing Machine Operator Name Role Phone Keiry West Primary Care Provider [phone] Yuliana Lin NP Primary Care Provider [phone] Encounter Details Date Type Department Care Team (Latest Contact Info) Description 09/03/2018 Abstract [facility] CONVERSIONS Dental, Provider, DDS Social History Tobacco Use Types Packs/Day Years [...] Upcoming Encounters Date Type Department Care Team ( st Contact Info) Description 09/01/2024 11:30 AM EDT Office Visit [facility] MEDICINE [address] [place] [address] Yuliana Lin NP [address] [place] [address] documented as of this encounter Visit Diagnoses Not on filedocumented in this encounter Care Teams Mixing Machine Operator Relationship Specialty Start Date End Date Keiry West FNP [address] [place] [address] PCP - General Family Medicine 07/19/23 03/02/24 Yuliana Lin NP [address] [place] [address] PCP - General Family Medicine 03/24/24 documented as of this encounter
--- OUTSIDE RECORDS SUMMARY | 2024-07-07 14:26 | XMS_ITS | Encounter Summary ---
Author Organization [employer] Address [address] [facility] 7t [place] [address] Care Team Providers Care Supplier Quality Specialist Name Role Phone Keiry WestP Primary Care Provider [phone] Yuliana Lin NP Primary Care Provider [phone] Reason for Visit * Reason Onset Date Comments Medication Question 03/02/2024 Encounter Details Date Type Department Care Team ([facility] Contact Info) Description 03/02/2024 Telephone [facility] [address] [place] [address] Keiry West FNP [address] [place] [address] Medication Question Social History Tobacco Use Types Packs/Day Years [...] AM EST documented as of this encounter Miscellaneous Notes * Telephone Encounter - Hanna Kong RN - 03/16/2024 4:24 PM EST Tc to pt via S network cable installer id: [id number] to let them know provider would like to see them for a in person visit first before prescribing 0.5 mg Wegovy. Genetics Physician stayed on the line for 7 minutes thenproceeds to say unable to dial out. Tc to via S network cable installer services id: [id number] network cable installer statesscreen is frozen and unable to do dial out. Tc to pt without network cable installer services and pt states network cable installer is not needed. Sick on site appt scheduled with Yuliana Lin NP on 03/24/24 and pt verbalized understanding. * Telephone Encounter - Castro Dougherty - 03/11/2024 8:37 AM EST Tc from pt requesting an increase on script for Semaglutide-Weight Management (Wegovy) 0.5 MG/0.5MLsolution auto-injector . * Telephone Encounter - Hanna Kong RN - 03/09/2024 3:41 PM EST Tc to pharmacy to confirm if PA is needed for 0/5 mg Wegovy which they reported does not but the medication is currently on backorder. Tc to [facility] pharmacy who claims that they have the medication in stock but they need a script. Tc to pt via [employer] id: [id number] unable to call back do to system not working and transferred to another network cable installer id: [id number] to schedule tp appointment and see if they're okay with wegovy script to be sent to [facility] pharmacy. Pt agrees to plan and verbalized understanding. TP appointment scheduled with Yuliana Lin NP on 06/05/24 and message forwarded to provider for review. * Telephone Encounter - Lavern Galvin RN - 03/04/2024 10:17 AM EDT Telephone call returned to pt. Informed increased dose was sent back in November but needs PA. [facility] never notified us. Apologized for inconvenience and informed that I would try to see if alternate provider can sign off on PA since her PCP is no longer working here as a PCP. Will also put in request for TP. Advised to keep an eye on the mail for notice of approval or denial from insurance. If she gets an approval letter, can try to fill at [facility] in [place] as they already have script. Pt verbalized understanding and denied having any further questions or concerns at this time. * Telephone Encounter - Scottie Hayward - 03/04/2024 9:02 AM EDT Tc from pt calling in regards to message prior. * Telephone Encounter - Rikki Henry - 03/02/2024 1:43 PM EDT Tc from pt requesting PCP to increase Semaglutide-Weight Management (Wegovy) 0.25 MG/0.5ML solutionauto-injector.Pt indicating she sees no changes since med received. documented in this encounter Plan of Treatment Upcoming Encounters Date Type Department Care Team (Late st Contact Info) Description 09/01/2024 11:30 AM EDT Office Visit [facility]ICINE [address] [place] [address] Yuliana Lin NP [address] [place] [address] documented as of this encounter Visit Diagnoses Diagnosis Obesity (BMI 30.0-34.9) documented in this encounter Additional Health Concerns Assessment Noted Time PHQ-9 Depression Total Score: 9 07/19/19 24 9:57 AM EDT documented as of this encounter Care Teams Supplier Quality Specialist Relationship Specialty Start Date End Date Keiry West FNP [address] [place] [address] PCP - General Family Medicine 07/19/23 03/02/24 Yuliana Lin NP [address] [place] [address] PCP - General Family Medicine 03/24/24 documented as of this encounter
--- OUTSIDE RECORDS SUMMARY | 2024-07-07 14:26 | XMS_ITS | Clinical Summary ---
Demographics Address [address] [place] [address] Mobile Phone Email Address Preferred Language Telugu; Castilian Marital Status Single Rastafari Affiliation Unknown Race White Ethnic Group or Author Organization [facility] Address [address] [place] [address] Support Name Relationship Address Phone Sivakumar [place] Personal Relationship [address] [place] [address] Vee Esparza Sister [address] [place] [address] Care Team Providers Care Audio Visual Tech Name Role Phone Dre Parrish PA-C Primary Care Provider Source Comments PLEASE NOTE, if this patient is a minor, it may be UNLAWFUL to discuss sensitive information that is contained in these records (such as FAMILY PLANNING, MENTAL HEALTH or SUBSTANCE ABUSE) with the minor patient's parent or other person without the patient's specific authorization.[facility] Allergies Active Allergy Reactions Criticality Noted Date Comments Tramadol Other (See Comments) 11/02/2020 Medications buPROPion SR (WELLBUTRIN SR) 150 mg 12 hr tabletIndications :Anxiety disorder, unspecified type,Moderate depressive episode Take 1 Tablet by mouth 2 (two) times daily 150 mg daily in the morning; if tolerated, after 3 days, may increase to a target dose of 150 mg twice daily 180 Tablet 1 3 Active albuterol HFA 90 mcg/actuation inhalerIndication s:Mild intermittent asthma without complication Inhale 2 Puffs into the lungs every 4 to 6 (four to six) hours as needed for shortness of breath or wheezing 18 g 3 3 Active loratadine (CLARITIN) 10 mg tabletIndications :Seasonal allergic rhinitis due to pollen Take 1 Tablet by mouth once daily as needed for allergies 90 Tablet 1 3 Active fluticasone (FLONASE) 50 mcg/actuation nasal sprayIndications: Seasonal allergic rhinitis due to pollen Place 1 [place] in both nostrils once daily 16 g 1 3 Active ibuprofen 800 mg tabletIndications :Body aches Take 1 Tablet by mouth 3 (three) times daily as needed for pain 30 Tablet 3 Active Active Problems Problem Noted Date Diagnosed Date Anxiety disorder 07/10/2022 Moderate depressive episode 07/10/2022 Dysmenorrhea 12/07/2021 Menorrhagia with regular cycle 12/07/2021 Asthma 11/02/2020 Acanthosis nigricans 01/21/2019 Family planning counseling 01/21/2019 Obesity (BMI 30.0-34.9) 01/21/2019 Resolved Problems Problem Noted Date Diagnosed Date Resolved Date Encounter for supervision of normal in first trimester 12/01/2019 04/25/2021 Overview (11/02/2020): Discuss HGB electrophoresis at [facility] OB-CMI score: 1 [12/01/2019] . Group PN care? * Rh * GC/Chlam * PAP Tdap * Flu * Hgb * GTT * 28 wk Repeat RPR * GBS * PPBC * screening * Immunizations Name Administration Dates Next Due INFLUENZA, SEASONAL, INJECTABLE 12/01/2020,05/06,03/03/2020 MMR (MMR II/Priorix) 07/23/2020,07/23/2020,07/22 Moderna COVID-19 Vaccine, re d cap blue label, 12+ Primary Series 09/12/2020,08/15/2020 PNEUMOCOCCAL POLYSACCHARIDE PPV23 05/26/2021 TDAP 12/23/2020,05/10/2020 Social History Tobacco Use Types Packs/Day Years Used Date Smoking Tobacco: Never Smokeless Tobacco: Never Alcohol Use Standard Drinks/Week Comments Not Currently 0 (1 standard drink = 0.6 oz pur e alcohol) Social Connections Answer Date Recorded Connectedness 0 07/10/2022 Financial Resource Strain Answer Date R ecorded Financial Resource Strain 0 2022 Stress Answer Date Recorded Stress 0 07/10/2022 Physical Activity Answer Date Recorded Physical Activity 0 08/15/2020 Food Insecurity Answer Date Recorded Food 0 07/10/2022 Transportation Needs Answer Date Record ed Transportation 0 07/10/2022 Housing Stability Answer Date Recorded Housing 0 07/10/2022 Safety and Environment Answer Date Chad rded Safety 0 07/10/2022 Utilities Answer Date Recorded Utilities 0 07/10/2022 Employment Answer Date Recorded Employment 0 08/15/2020 Comments No Sex and Gender Information Value Date Recorded Sex Assigned at Female 11/02/2020 11:21 AM PDT Legal Sex Female 11:35 AM PST Gender Identity Female 11/02/2020 11:21 AM PDT Sexual Orientation Straight 11/02/2020 11 :21 AM PDT Last Filed Vital Signs Vital Sign Reading Time Taken Comments Blood Pressure 108/70 01/30/2023 4:18 PM EDT Pulse 86 01/30/2023 4:18 PM EDT Temperature 37.1 ??C (98.7 ??F) 01/30/2023 4:18 PM ED T Respiratory Rate 16 01/30/2023 4:18 PM EDT Oxygen Saturation 99% 07/10/2022 2:07 PM EST Inhaled Oxygen Concentration - - Weight 116.1 kg (256 lb) 01/30/2023 4:18 PM EDT Height 167.6 cm (5' 6 ) 01/30/2023 4:18 PM EDT Body Mass Index 41.32 01/30/2023 4:18 PM EDT Plan of Treatment Health Maintenance Due Date Last Done Comments Dental FMX/Pano 1989 HPV Screening 1989 Imm-Hepatitis B (1 of 3 - 19 + 3-dose series) 2008 Annual Preventive Care Visit 12/23/2021 12/23/2020 Tobacco Screening 12/23/2021 12/23/2020 Imm-Pneumococcal (2 of 2 - PCV) 05/26/2022 Depression Monitoring 10/10/2022 07/10/2022 , 12/07/2021, 12/23/2020 Pap Smear 03/03/2023 03/03/2020 (Maryam cisneros by Outside Provider), 03/03/2020 Dental BW 05/26/2023 05/24/2022 Dental Examination 05/26/2023 05/24/2022 Dental Perio Charting 05/26/2023 05/24/2022 Dental Prophy 05/26/2023 05/24/2022 Relationship Safety Screening/Counseling 07/11/2023 07/10/2022, 12/07/2021, 04/25/2021 Juo-BQLIN-06 ( season) 2024 04/12/2021, 09/12/2020, 08/15/2020 Imm-Influenza (#1) 2024 12/01/2020, 0 05/06/2020, 03/03/2020 Alcohol and Drug Screen 05/06/2024 12/07/2021, 12/23 Cervical Cancer Screening 03/03/2025 Pap + HPV 03/03/2025 03/03/2020 Hypertension Screening (#1) 01/29/2026 Imm-DTaP/Tdap/Td (3 - Td or Tdap) 12/23/2030 021, 05/10/2020 HIV Screening Completed 12/30/2020 Hepatitis C Screening Completed 12/30/2020 Cervical Ablation/Cold-Knife Conization Discontinued Cervical Cryotherapy Discontinued Colposcopy Discontinued Endometrial Biopsy Discontinued Excision/Leep Discontinued HPV Genotyping Discontinued Vaginal Pap Discontinued Vulvoscopy Discontinued Procedures Procedure Name Priority Date/Time Associated Diagnosis Comments COMP PERIODONTAL EVALUATION - NEW/EST PATIENT Routine 05/24/2022 3:40 PM EST Gingivitis, chronic, plaque induced BITEWINGS - FOUR RADIOGRAPHIC IMAGES Routine 05/24/2022 3:40 PM EST Gingivitis, chronic, plaque induced PROPHYLAXIS - ADULT Routine 05/24/2022 3 :40 PM EST Gingivitis, chronic, plaque induced PERIODIC ORAL EVALUATION ESTABLISHED PATIENT Routine 05/24/2022 3:40 PM EST Gingivitis, chronic, plaque induced HIV 1/2 AG & AB W/RFLX (4TH GEN) Routine 12/30/2020 11:56 AM EDT Screening for viral disease HEPATITIS C AB W/RFLX HCV RNA, QT, RT PCR Routine 12/30/2020 11:56 AM EDT Screening for viral disease PAP W/ HPV 03/03/2020 3:00 AM EDT from Last 3 Months or Most Recently Relevant to Health Maintenance Results * HEPATITIS C AB W/RFLX HCV RNA, QT, RT PCR (12/30/2020 11:56 AM EDT) HEPATITIS C ANTIBODY NON-REACT MARISABEL NON-REACT MARISABEL [facility] SIGNAL TO CUT-OFF 0.01 <1.00 [employer] Comment: HCV antibody was non-reactive. There is no laboratory evidence of HCV infection. In most cases, no further action is required. However, if recent HCV exposure is suspected, a test for HCV RNA (test code 84689) is suggested. For additional information please refer to http://PowerDsine.StockCastr/faq/TAY14w6 (This link is being provided for informational/ educational purposes only.) Blood Blood / Unknown 12/30/2020 1 1:56 AM EDT 12/30/2020 11:57 AM EDT Amparo Blandon NEUROPSYCHOLOGY DIRECTOR-C LAB - BLOOD DRAW Edited Resu lt - Final [facility] [address] [address], [facility] [address] [address] * HIV 1/2 AG & AB W/RFLX (4TH GEN) (12/30/2020 11:56 AM EDT) Pathologist [facility] HIV AG/AB, 4TH GEN NON-REAC TIVE NON-REAC TIVE [facility] Comment: HIV-1 antigen and HIV-1/HIV-2 antibodies were not detected. There is no laboratory evidence of HIV infection. PLEASE NOTE: This information has been disclosed to you from records whose confidentiality may be protected by state law. ??If your state requires such protection, then the state law prohibits you from making any further disclosure of the information without the specific written consent of the person to whom it pertains, or as otherwise permitted by law. A general authorization for the release of medical or other information is NOT sufficient for this purpose. ?? For additional information please refer to http://PowerDsine.StockCastr/faq/JHH393 (This link is being provided for informational/ educational purposes only.) The performance of this assay has not been clinically validated in patients less than 2 years old. Blood Blood / Unknown 12/30/2020 1 1:56 AM EDT 12/30/2020 11:57 AM EDT Amparo Blandon NEUROPSYCHOLOGY DIRECTOR-C LAB - BLOOD DRAW Edited Resu lt - Final [facility] [address] [facility] [address] [place] [address], [facility] [address] [address] * PAP W/ HPV (03/03/2020 3:00 AM EDT) 03/03/2020 3:00 AM EDT Amparo Hermosillochase GLEZP-C LAB - NO BLOOD DRAW Final Re sult from Last 3 Months or Most Recently Relevant to Health Maintenance Insurance ID MEDICAID DENTAL [id number] [employer] Care Teams Audio Visual Tech Relationship Specialty Start Date End Date Dre Parrish PA-C [address] [place] [address] PCP - General FAMILY MEDICINE, [place] 04/04/23
== END 2024-07-06 11:26 | disposition home or self-care (01) ==
LOC: HO.HHCLNP 11:25
PROVIDERS: Visit Provider Family Medicine
DX: J02.9 Acute pharyngitis, unspecified (principal)
CPT/HCPCS: 87070

== ENCOUNTER 2024-07-23 14:18 | Emergency (ER) | payer MEDICAID, SELFPAY ==
--- NOTE | ~2024-07-23 | XR_ITS ---
EXAMINATION: XR CHEST 2 VIEWS HISTORY: fever, cough COMPARISON: Comparison is made with the prior examination dated 02/06/2018. FINDINGS: PA and lateral views of the chest are submitted. The lungs are expanded and clear. There is no pleural effusion, pneumothorax, or pulmonary vascular congestion. The heart is normal in size. The bones are intact. XR/XR chest 2V IMPRESSION: No acute cardiopulmonary abnormality. Electronically signed by: Shelton Marshall MD 07/23/2024 03:35 PM EDT
--- NOTE | 2024-07-23 14:23 | ED.GENADULT ---
HPI - General Adult General Chief complaint: General Medical Stated complaint: ABD PAIN, FEVER, DYSUREA PER EMS Time Seen by Provider: 07/23/24 14:23 History of Present Illness ED Provider: Sita EMNCHACA narrative: The patient is a 33-year-old female who developed a fever and body pains today. She says that a 10 days ago she had an endometrial biopsy at [facility] because of vaginal bleeding. This was done at the [facility]. She says that for about 3 days after the procedure she had some yellowish vaginal discharge but that has resolved. Since then she has only had some clear vaginal discharge. Over the last few days she has developed some urinary frequency and discomfort and she feels that her urine is more for me. Today she became acutely worse feeling feverish with a lot of generalized body pain and aches. Related Data Home Medications ?Medication ?Instructions ?Recorded ?Confirmed albuterol sulfate 90 mcg/actuation 2 puff inhalation Q4-6H PRN 04/07/24 04/20/24 aerosol inhaler (Ventolin HFA) wheezing Previous Rx's ?Medication ?Instructions ?Recorded acetaminophen 500 mg capsule 1,000 mg (2 x 500 mg) PO Q8H PRN 07/23/24 fever or pain #20 caps cefpodoxime 200 mg tablet 200 mg PO BID #16 tabs 07/23/24 ibuprofen 400 mg tablet 400 mg PO Q6H PRN pain #14 tabs 07/23/24 Allergies Allergy/AdvReac Type Severity Reaction Status Date / Time tramadol Allergy Severe Anaphylaxis Verified 07/23/24 14:46 [facility] Past Medical History Medical History (Updated 07/23/24 @ 16:40 by Arun Buckner MD) Anxiety Asthma Morbid obesity No pertinent past medical history Surgical History (Updated 04/07/24 @ 08:28 by Marisela Henry CMA) Hx of oral surgery Hx of tubal ligation Family History Family History (Updated 04/07/24 @ 08:29 by Marisela Henry CMA) Mother Cancer Thyroid condition Father Hypertension Son No problems noted. Social History Social History (Updated 04/07/24 @ 08:29 by Marisela Henry CMA) Alcohol intake: current Alcohol intake frequency: does not drink Patient Tobacco Use Status: Never used Tobacco Physical Exam ED Vital Signs: Vital Signs - 24 hr 07/23/24 14:35 07/23/24 16:00 07/23/24 16:49 Temperature 100.0 F 98.1 F Pulse Rate 98 114 H Respiratory Rate 20 20 Blood Pressure 107/77 111/70 Pulse Oximetry 100 97 Oxygen Delivery Method Room Air Room Air 07/23/24 17:02 07/23/24 17:58 07/23/24 18:00 Temperature 98 F 98.9 F 98.9 F Pulse Rate 103 H 85 85 Respiratory Rate 20 20 20 Blood Pressure 113/76 112/72 112/72 Pulse Oximetry 98 98 98 Oxygen Delivery Method Room Air Room Air Room Air BMI result Body Mass Index 39.1 Const Other: The patient is awake and alert. She looks somewhat unwell but not acutely toxic. HENMT Other: Face is symmetrical. Mucous membranes moist. Eyes General: appearance normal, both eyes and all related structures Conjunctivae: conjunctivae normal Pupils: Equal, round and reactive pupils present EOM: EOMs intact bilaterally Neck Neck: Yes normal visual inspection, Yes full ROM and Yes lymphadenopathy Resp Effort & Inspection: normal respiratory effort Auscultation: clear to auscultation bilaterally Cardio Rate: regular rate Rhythm: regular rhythm Heart sounds: S1 normal heart sound present and S2 normal heart sound present GI Other: Abdomen is soft and nontender. No significant suprapubic tenderness. Back/Spine/Pelvis Other: No CVA percussion tenderness on either side Skin Other: Skin is dry and unremarkable Neuro Other: The patient is awake and alert with a normal mental status. Cranial nerves 2-12 are intact. She moves her extremities normally. Gait is normal. Cranial nerves: Yes Equal, round and reactive pupils present Medications Administered Discontinued Medications Generic Name Dose Route Start Last Admin Trade Name Jael PRN Reason Stop Dose Admin Ceftriaxone Sodium 2 gm 07/23/24 15:34 07/23/24 16:47 Ceftriaxone Sodium 2 Gm Vial IVPUSH 07/23/24 15:35 2 gm ONCE ONE Administration Sodium Chloride 1,000 mls @ 999 mls/hr 07/23/24 15:30 07/23/24 17:54 Ns IV 07/23/24 16:30 Infused .Q1H1M JAMES Infusion Acetaminophen 1,000 mg in 100 mls @ 400 mls/hr 07/23/24 15:34 07/23/24 16:41 Ofirmev IV 07/23/24 15:48 Infused ONCE ONE Infusion Sodium Chloride 1,000 mls @ 999 mls/hr 07/23/24 16:45 07/23/24 17:54 Ns IV 07/23/24 17:45 Infused .Q1H1M JAMES Infusion Ketorolac Tromethamine 10 mg 07/23/24 15:33 07/23/24 15:55 Ketorolac Tromethamine 15 Mg/Ml Vial IVPUSH 07/23/24 15:34 10 mg ONCE ONE Administration Medical Decision Making Medical Decision Making [facility] Narrative: The patient is a 33-year-old woman who presents with a proximally 24 hours of feeling quite ill with a fever and diffuse body aches and urinary symptoms. She has an elevated white count and an elevated CRP. Her urinalysis is consistent with a UTI. Her abdomen seems benign. She has no CVA percussion tenderness. She was given 2 g of IV ceftriaxone and 2 L of IV fluids and felt considerably better. I think she has a urinary tract infection with fever. She will be discharged with a prescription for cefpodoxime 200 mg b.i.d. and should follow up with her PCP. She should also follow up with the Gynecology office at [facility] where she had an endometrial biopsy 10 days ago. Lab Data 07/23/24 14:50 07/23/24 14:50 Labs: Lab Results 07/23/24 07/23/24 07/23/24 Range/Units 14:50 15:05 15:54 WBC 15.8 H (4.8-10.8) X10*3/uL RBC 4.73 (4.20-5.50) X10*6/uL Hgb 12.8 (12.0-16.0) g/dl Hct 38.7 (37.0-47.0) % MCV 81.8 (80.0-98.0) fL MCH 27.1 (27.0-33.0) pg MCHC 33.1 (31.0-35.0) g/dl RDW 16.9 H (11.0-16.0) % Plt Count 200 (160-400) X10*3/uL MPV 11.3 (9.4-12.3) fL Immature Gran % (Auto) 0.6 H (0.0-0.4) % Neut % (Auto) 84.7 H (45-73) % Lymph % (Auto) 6.6 L (20-40) % Bibb % (Auto) 7.5 (2-11) % Eos % (Auto) 0.2 (0-4) % Baso % (Auto) 0.4 (0-2) % Lymph # (Auto) 1.0 L (1.2-4.9) X10*3/uL Bibb # (Auto) 1.2 (0.1-1.2) X10*3/uL Eos # (Auto) 0.0 (0.0-0.4) X10*3/uL Baso # (Auto) 0.1 (0.0-0.2) X10*3/uL Abs Immat Gran (auto) 0.09 H (0.00-0.03) X10*3/uL Absolute Neuts (auto) 13.4 H (2.0-8.3) x10*3/uL Absolute Nucleated RBC 0.000 (0.0-0.012) X10*3/uL Nucleated RBC % (auto) 0.0 (0.0-0.2) /100WBC Sodium 138 (135-145) mmol/L Potassium 4.5 (3.3-5.1) mmol/L Chloride 108 (96-108) mmol/L Carbon Dioxide 24 (22-29) mmol/L Anion Gap 11 L (12-20) BUN 15 (9-16) mg/dL Creatinine 0.77 (0.5-1.4) mg/dL Estim Creat Clear Calc 129.3 Estimated GFR > 60 Random Glucose 104 (60-115) mg/dL Lactic Acid 1.5 (0.5-2.0) mmol/L Calcium 9.4 (8.4-10.2) mg/dL Magnesium 2.0 (1.6-2.6) mg/dL Total Bilirubin 0.6 (0.0-1.0) mg/dL Direct Bilirubin 0.2 (0.0-0.5) mg/dL AST 47 H (5-31) U/L ALT 81 H (0-31) U/L Alkaline Phosphatase 109 (39-117) U/L C-Reactive Protein 7.37 H (< or = 0.50) mg/dL Total Protein 7.8 (6.5-8.0) g/dL Albumin 4.0 (3.5-5.0) g/dL Urine Color Yellow Urine Appearance Cloudy Urine pH 6.0 (5.0-9.0) Ur Specific [place] 1.015 (1.005-1.025) Urine Protein 30 (1+) H (Neg-Trace) mg/dL Urine Glucose (UA) Negative (Negative) mg/dL Urine Ketones 40 (Negative) mg/dL Urine Blood Small (1+) H (Negative) Urine Nitrite Negative (Negative) Ur Leukocyte Esterase Large (3+) H (Negative) Urine RBC 3-5 H (0-2) /HPF Urine WBC 21-50 (0-5) /HPF Urine WBC Clumps Present Ur Squamous Epith Cells 3-5 (0-2) /HPF Urine Bacteria 4+ (None Seen) Hyaline Casts 0-2 (0-2) /LPF Urine Test NEGATIVE (NEGATIVE) Influenza Type A (PCR) NEGATIVE (Negative) Influenza Type B (PCR) NEGATIVE (Negative) RSV RNA Qual (PCR) NEGATIVE (Negative) SARS-CoV-2 RNA (RT-PCR) NEGATIVE (Negative) Discharge Plan Discharge Clinical Impression: Urinary tract infection with fever Patient Disposition: Home, Self-Care Instructions: Urinary Tract Infection in Women (DC) Additional Instructions: I believe that your fever is coming from a urinary tract infection. You were given a dose of IV antibiotics in the emergency room today. A prescription for additional oral antibiotics has been sent to your pharmacy. Please start these antibiotics tomorrow morning. Take these antibiotics 2 times a day, approximately every 12 hours. Drink lot of fluids to keep herself well hydrated. Use ibuprofen and acetaminophen as needed for pain. Please plan on following up with your regular doctor and also plan on following up with the Gynecology office at [facility] where you had your biopsy. If at any point you feel significantly worse please return to the emergency room for further evaluation. Prescriptions: New cefpodoxime 200 mg tablet 200 mg PO BID Qty: 16 0RF Rx Instructions: must administer with a meal/food ibuprofen 400 mg tablet 400 mg PO Q6H PRN (Reason: pain) Qty: 14 0RF acetaminophen 500 mg capsule 1,000 mg PO Q8H PRN (Reason: fever or pain) Qty: 20 0RF No Action albuterol sulfate [Ventolin HFA] 90 mcg/actuation HFA aerosol inhaler 2 puff inhalation Q4-6H PRN (Reason: wheezing) Referrals: Yuliana Lin, HUMAN RELATIONS MANAGER [Primary Care Provider] - (UTI with fever) Stand Alone Forms: Work/School Release Interventions: ED Discharge Assessment Last Done: 07/23/24 18:00 Discharge Date/Time: 07/23/24 18:08 Print Language: Greenlandic
[2024-07-23 14:35] VITALS: BP 107/77; PULSE 98; RESP 20; TEMP 37.8; O2SAT 100; BMI 39.1
[2024-07-23 14:54] LABS: MANUAL DIFF FLAG NO
--- NOTE | 2024-07-23 14:56 | PC.NURSE ---
Informed MD Dias , that pt. flagged sepsis criteria d/t new onset of fever and is tachycardic. made aware and awaiting results at this time.
[2024-07-23 14:58] LABS: Basophils Absolute Auto 0.1 X10*3/uL (0.0-0.2); Basophils Percent Auto 0.4 % (0-2); Eosinophils Percent Auto 0.2 % (0-4); Hematocrit 38.7 % (37.0-47.0); Hemoglobin 12.8 g/dl (12.0-16.0); Imm Gran Abs Auto 0.09 X10*3/uL (0.00-0.03); Imm Gran Pct Auto 0.6 % (0.0-0.4); Lymphocytes Percent Auto 6.6 % (20-40); Mean Corpuscular HGB Conc 33.1 g/dl (31.0-35.0); Mean Corpuscular Hemoglobin 27.1 pg (27.0-33.0); Mean Corpuscular Volume 81.8 fL (80.0-98.0); Mean Platelet Volume 11.3 fL (9.4-12.3); Monocytes Absolute Auto 1.2 X10*3/uL (0.1-1.2); Monocytes Percent Auto 7.5 % (2-11); Neutrophils Absolute Auto 13.4 x10*3/uL (2.0-8.3); Neutrophils Percent Auto 84.7 % (45-73); Platelet Count 200 X10*3/uL (160-400); Red Blood Count 4.73 X10*6/uL (4.20-5.50); Red Cell Distribution Width 16.9 % (11.0-16.0); White Blood Count 15.8 X10*3/uL (4.8-10.8)
[2024-07-23 15:13] LABS: Appearance Urine Cloudy; Color Urine Yellow; Glucose Urine UA Negative (Negative); Leukocyte Esterase Urine Large (3+) (Negative); Nitrite Urine Negative (Negative); Specific Gravity - Urine 1.015 (1.005-1.025); UMIC TRIGGER UACC YES; Urine Blood Small (1+) (Negative); Urine Ketones 40 mg/dL (Negative); Urine Protein 30 (1+) mg/dL (Neg-Trace)
[2024-07-23 15:15] LABS: Anion Gap 11 (12-20)
[2024-07-23 15:17] LABS: Urine Pregnancy NEGATIVE (NEGATIVE)
[2024-07-23 15:18] LABS: Alanine Aminotransferase 81 U/L (0-31); Aspartate Amino Transferase 47 U/L (5-31); Bilirubin Direct 0.2 mg/dL (0.0-0.5); Bilirubin Total 0.6 mg/dL (0.0-1.0); Blood Urea Nitrogen 15 mg/dL (9-16); C Reactive Protein 7.37 mg/dL (< or = 0.50); Calcium 9.4 mg/dL (8.4-10.2); Carbon Dioxide 24 mmol/L (22-29); Chloride 108 mmol/L (96-108); Creatinine Clr Calc Pharmacy 129.3; Estimated Glomerular Filt Rate > 60; Glucose Random 104 mg/dL (60-115); Potassium 4.5 mmol/L (3.3-5.1); Sodium 138 mmol/L (135-145); Total Protein 7.8 g/dL (6.5-8.0)
[2024-07-23 15:18] LABS: UPreg QC Valid YES
[2024-07-23 15:30] LABS: Bacteria Urine 4+ (None Seen); Hyaline Casts Urine 0-2 /LPF (0-2); UACC Culture Trigger YES; WBC Clumps Urine Present; WBC Urine 21-50 /HPF (0-5)
[2024-07-23 15:34] LABS: Influenza A PCR NEGATIVE (Negative); Influenza B PCR NEGATIVE (Negative); Resp Syncy Virus RNA Qual PCR NEGATIVE (Negative); SARS COV2 PCR INHOUSE NEGATIVE (Negative)
[2024-07-23] MEDS: Acetaminophen 1,000 MG/100 ML PIGGYBACK 400 MG IV (15:54)
[2024-07-23] MEDS: 0.9 % Sodium Chloride 1,000 ML 999 ML IV ×2 (15:54→16:48)
[2024-07-23] MEDS: Ketorolac Tromethamine 15 MG/ML VIAL 10 MG IVPUSH (15:55)
[2024-07-23 16:00] VITALS: BP 111/70; PULSE 114; RESP 20; O2SAT 97
[2024-07-23 16:06] LABS: Alkaline Phosphatase 109 U/L (39-117)
[2024-07-23 16:24] LABS: Lactic Acid 1.5 mmol/L (0.5-2.0)
[2024-07-23] MEDS: cefTRIAXone sodium 2 GM VIAL IVPUSH (16:47)
[2024-07-23 16:49] VITALS: TEMP 36.7
[2024-07-23 17:02] VITALS: BP 113/76; PULSE 103; RESP 20; TEMP 36.6; O2SAT 98
[2024-07-23 17:58] VITALS: BP 112/72; PULSE 85; RESP 20; TEMP 37.2; O2SAT 98
[2024-07-23 18:00] VITALS: BP 112/72; PULSE 85; RESP 20; TEMP 37.2; O2SAT 98
== END 2024-07-23 18:08 | disposition home or self-care (01) ==
PROVIDERS: Emergency Provider Emergency Medicine; PCP Nurse Practitioner Family
DX: N39.0 Urinary tract infection, site not specified (principal); R50.9 Fever, unspecified; R10.9 Unspecified abdominal pain; J45.909 Unspecified asthma, uncomplicated; Z03.818 Encounter for observation for suspected exposure to other biological agents ruled out
CPT/HCPCS: 0241U; 36415; 71046; 80048; 80076; 81001; 81025; 83605; 83735; 85025; 86140; 87040; 87086; 87088; 87186; 96361; 96374; 96375; 99285; J0131; J0696; J1885

== ENCOUNTER → 2024-07-23 15:23 | Outpatient (BNV) | payer MEDICAID, SELFPAY | PROVIDERS: Emergency Provider Emergency Medicine; PCP Nurse Practitioner Family; Visit Provider Radiology Diagnostic Radiology | DX: R05.9 Cough, unspecified (principal); R50.9 Fever, unspecified | CPT/HCPCS: 71046 ==

== ENCOUNTER 2024-07-26 16:22 | Emergency (ER) | payer MEDICAID, SELFPAY ==
--- NOTE | ~2024-07-26 | XR_ITS ---
CLINICAL HISTORY: fall, landed on low back 3 views lumbar spine Comparison: None Findings: Normal vertebral body alignment. No acute fractures or dislocation. No significant degenerative change. IMPRESSION: No acute findings. This document has been electronically signed by: Taryn Marcelo MD on 07/26/2024 16:58:17
--- NOTE | ~2024-07-26 | XR_ITS ---
CLINICAL HISTORY: twisted right ankle foot during fall 3 view right foot Comparison: None Findings: Bones intact. No dislocations. No significant arthritic change or erosions. No ankle effusion. No radiopaque foreign body. IMPRESSION: 1. No acute findings. This document has been electronically signed by: Taryn Marcelo MD on 07/26/2024 16:57:01
--- NOTE | ~2024-07-26 | XR_ITS ---
CLINICAL HISTORY: twisted ankle, abrasions swelling to lateral aspe 3 view right ankle Comparison: None Findings: No acute fractures or dislocations. There is soft tissue edema. No significant loss of joint space, osteophytes, or erosions. No ankle effusion. No radiopaque foreign body. IMPRESSION: No acute bony abnormality. This document has been electronically signed by: Taryn Marcelo MD on 07/26/2024 16:56:12
[2024-07-26 16:25] VITALS: BP 119/76; PULSE 101; RESP 18; TEMP 36.6; O2SAT 96; BMI 39.1
--- NOTE | 2024-07-26 16:30 | ED.FALL ---
HPI - Fall General Chief Complaint: Fall Stated Complaint: fell from stairs Right ankle hurts / swollen Time Seen by Provider: 07/26/24 17:32 Source: patient Mode of arrival: ambulatory Limitations: no limitations History of Present Illness ED Provider: MAIRA STOREY PA-C HPI Narrative: 33-year-old female with pmhx significant for asthma and anxiety presents to the ED today for evaluation of right ankle pain/swelling and tailbone pain s/p mechanical fall last night. She states that while descending a step at home yesterday, her right ankle twisted causing her to fall backwards onto her low back. She only fell down one step. Denies head strike or LOC. Took Motrin and Tylenol around 0900 this morning. She has been able to bear some weight on the RLE. Denies saddle anesthesia, bowel or bladder incontinence or retention, numbness/tingling/weakness of the lower extremities. Related Data Home Medications ?Medication ?Instructions ?Recorded ?Confirmed albuterol sulfate 90 mcg/actuation 2 puff inhalation Q4-6H PRN 04/07/24 04/20/24 aerosol inhaler (Ventolin HFA) wheezing Previous Rx's ?Medication ?Instructions ?Recorded acetaminophen 500 mg capsule 1,000 mg (2 x 500 mg) PO Q8H PRN 07/23/24 fever or pain #20 caps cefpodoxime 200 mg tablet 200 mg PO BID #16 tabs 07/23/24 ibuprofen 400 mg tablet 400 mg PO Q6H PRN pain #14 tabs 07/23/24 cyclobenzaprine 5 mg tablet 5 mg PO Q8H PRN muscle pain #7 tabs 07/26/24 lidocaine 5 % topical patch 1 patch topical DAILY #15 ea 07/26/24 (Lidoderm) Allergies Allergy/AdvReac Type Severity Reaction Status Date / Time tramadol Allergy Severe Anaphylaxis Verified 07/26/24 16:27 Review of Systems Review of Systems: Constitutional: No fever, chills, fatigue, night sweats, weight changes ENT/Mouth: No ear pain, hearing loss, nasal congestion, sinus pain, rhinorrhea, sore throat Eyes: No eye pain, swelling, redness, vision changes, discharge Cardio: No chest pain, palpitations, DAY, orthopnea, peripheral edema Pulm: No SOB, cough, sputum, wheezing, dyspnea, hemoptysis GI: No nausea, vomiting, hematemesis, abdominal pain, diarrhea, constipation, hematochezia, melena : No irregular bleeding, dysuria, frequency, urgency, hesitancy, hematuria, flank pain, urinary flow changes, urinary incontinence or retention MSK: No neck pain, joint pain, myalgias, +right ankle pain, +back pain Skin: No lesions, rashes Neuro: No weakness, numbness, paresthesias, LOC, dizziness, headache Psych: No anxiety/panic, depression, SI/HI, AH/VH All other systems reviewed and are negative. [facility] Past Medical History Attestation statement: The following information was validated with the patient. Source: old records reviewed and nursing notes reviewed Medical History Anxiety Asthma Morbid obesity No pertinent past medical history Surgical History Hx of oral surgery Hx of tubal ligation Family History Family History Mother Cancer Thyroid condition Father Hypertension Son No problems noted. Social History Social History Alcohol intake: current Alcohol intake frequency: does not drink Patient Tobacco Use Status: Never used Tobacco Advance Directives: No Advance Directives Information Provided: No Do you have a plan to hurt others: No Plan Physical Exam Vital Signs: Vital Signs: Last Vital Signs Temp 97.8 F 07/26/24 17:53 Pulse 101 H 07/26/24 17:53 Resp 18 07/26/24 17:53 BP 119/76 07/26/24 17:53 Pulse Ox 96 07/26/24 17:53 O2 Del Method Room Air 07/26/24 17:53 BMI result Body Mass Index 39.1 tachycardic, vitals otherwise wnl General: Well appearing, in no acute distress. Skin: Warm, dry, intact. No rashes or lesions. Head: Normocephalic, atraumatic. EENT: Hearing is intact b/l. Conjunctiva clear. PERRLA. EOM intact. Moist mucous membranes.? Neck: Supple without LAD Cardiac: Chest wall symmetric. RRR Lungs: Normal respiratory effort without accessory muscle use. CTA bilaterally.? Abdomen: Soft, non-tender, non-distended. No rebound tenderness or guarding. Positive BS x4. Back: No midline spinous tenderness or step-off deformity. No paraspinal muscle tenderness. Ext: +noted swelling to lateral aspect of right ankle with overlying abrasion. No deformity. ttp over lateral maleolus, no palpable deformity or crepitus. FROM intact to right ankle w/ minimal pain on plantar flexion. 2+ pt/dp pulse intact. Limping gait. Neuro: AOx3. Normal speech. Strength 5/5 intact throughout. No saddle anesthesia. Sensation intact to light touch. Psych: Appropriate mood and affect. Responds appropriately to questions. Course Course Course Narrative: This is a Rapid Medical Examination (RME) performed by Miguel Storey PA-C in triage. Full HPI, ROS, assessment and treatment plan per primary provider in the Main ED. Hx: 33 yo female hx asthma, anxiety here w/ right ankle pain/swelling and tailbone pain s/p mechanical fall down 1 step last night. reports twisting the ankle causing her to fall backward onto her low back. able to ambulate. no red flag back pain sx. PE/vitals: noted swelling and abrasion to right lateral ankle. Plan: xrs Reevaluation(s) Reevaluation #1: X-ray lumbar spine without fracture. X-ray right ankle/foot without fracture. Likely ankle sprain. Will place patient in tall walking boot. Provided crutches. May bear weight as tolerated. I have also provided her with a referral to ortho. Advised Tylenol/Motrin at home. Motrin given in the ED today. Patient has remained stable throughout ED visit today. Discussed worrisome signs and symptoms and when to return to the ED. All questions answered at this time. Patient is agreeable with disposition and stable for discharge. Medications Administered Discontinued Medications Generic Name Dose Route Start Last Admin Trade Name Freq PRN Reason Stop Dose Admin Ibuprofen 600 mg 07/26/24 17:34 07/26/24 17:38 Ibuprofen 600 Mg Tablet PO 07/26/24 17:35 600 mg ONCE ONE Administration Procedures Orthopedic Splinting/Casting Injury #1: Side: right Lower Extremity Immobilizer: boot orthosis Other Orthopedic Equipment: crutches Medical Decision Making Medical Decision Making MDM Narrative: 33-year-old female with pmhx significant for asthma and anxiety presents to the ED today for evaluation of right ankle pain/swelling and tailbone pain s/p mechanical fall last night. Patient was tachycardic to 101. Vitals are otherwise WNL. She is nontoxic-appearing and in no acute distress. On exam of right lower extremity, noted swelling to lateral aspect of right ankle with overlying abrasion. No deformity. ttp over lateral maleolus, no palpable deformity or crepitus. FROM intact to right ankle w/ minimal pain on plantar flexion. 2+ pt/dp pulse intact. Limping gait. No midline spinous tenderness or step-off deformity. Sensation and strength intact throughout. Differential diagnosis includes ankle contusion, MSK sprain/strain, ankle fracture. Unlikely neurovascular compromise, threat to limb, compartment syndrome. Presentation not consistent with gout, pseudogout, Lyme arthritis, septic joint. I have also considered lumbar strain/sprain, spasm. Less likely lumbar fracture or subluxation. Unlikely cauda equina, epidural abscess, Guillain-Duarte, compression. Plan for imaging, pain control and re-evaluation. Differential Diagnosis Differential Diagnoses: The differential diagnosis associated with the presentation includes as above. Admission/Observation Not indicated Independent Interpretation I performed an independent interpretation of an: Plain X-Ray Interpretation: X-ray right ankle/foot without fracture X-ray lumbar spine without fracture or subluxation Radiology Impression Discussion of test interpretation with radiology: I have reviewed the radiologist's reading. Radiologist Impression: Procedure(s): XR lumbar spine 2-3V Accession Number(s): [id number] cc: Chante Condon MD; Maira Storey~ CLINICAL HISTORY: fall, landed on low back 3 views lumbar spine Comparison: None Findings: Normal vertebral body alignment. No acute fractures or dislocation. No significant degenerative change. IMPRESSION: No acute findings. Procedure(s): XR foot RT min 3V Accession Number(s): [id number] cc: Chante Condon MD; Maira Storey~ CLINICAL HISTORY: twisted right ankle foot during fall 3 view right foot Comparison: None Findings: Bones intact. No dislocations. No significant arthritic change or erosions. No ankle effusion. No radiopaque foreign body. IMPRESSION: 1. No acute findings. This document has been electronically signed by: Taryn Marcelo MD on 07/26/2024 16:57:01 Procedure(s): XR ankle RT min 3V Accession Number(s): [id number] cc: Chante Condon MD; Maira Storey~ CLINICAL HISTORY: twisted ankle, abrasions swelling to lateral aspe 3 view right ankle Comparison: None Findings: No acute fractures or dislocations. There is soft tissue edema. No significant loss of joint space, osteophytes, or erosions. No ankle effusion. No radiopaque foreign body. IMPRESSION: No acute bony abnormality. This document has been electronically signed by: Taryn Marcelo MD on 07/26/2024 16:56:12 External Record Review External record reviewed: Inpatient record, Office record, Outpatient record, Prior outpatient labs, Prior outpatient radiology, Primary care record and Outside ED record Prescription Management I considered prescription management with: Pain Medication Social Determinants Patient?s care significantly limited by Social Determinants of Health including: Other Social Determinant of Health Critical Care Time Critical Care Time Critical Care Time: No Discharge Plan Discharge Clinical Impression: Right ankle sprain, Lumbar strain Patient Disposition: Home, Self-Care Instructions: Crutch Instructions (ED), Low Back Strain (ED), R.I.C.E. Treatment (ED), Walking Boot (ED) Additional Instructions: You were evaluated in the Emergency Department today for your right ankle and low back pain. Your xrays do not demonstrate fracture. You likely sprained your right ankle. I have placed you in a walking boot, you may bear weight as tolerated however I have provided you crutches to utilize this week. RICE therapy - rest, ice, compress, and elevate the right ankle above heart level to help with pain and swelling. For your back pain, avoid bending, lifting, or twisting. Use ice several times per day for 20 minutes at a time for the next 48 hours and then change to heat. I recommend you take 600mg ibuprofen every 6 hours or Tylenol 650mg every 6 hours as needed for pain. If needed, you can alternate these medications so that you take one medication every 3 hours. For example, at noon take ibuprofen, then at 3pm take tylenol, then at 6pm take ibuprofen. Flexeril is a muscle relaxer. Take this at night as it makes you drowsy. Do not drive, drink alcohol, or operate machinery while taking it. Lidoderm patches are numbing patches. Apply to painful areas. Please schedule an appointment for follow-up with your primary care provider this week for further evaluation of your symptoms. I have also provided you with a referral to an orthopedic radiologic technologist. Return to the Emergency Department if you experience worsening back pain, difficulty walking, fevers, numbness, tingling, incontinence, or any other concerning symptoms. In the case of an emergency call 911. Prescriptions: New cyclobenzaprine 5 mg tablet 5 mg PO Q8H PRN (Reason: muscle pain) Qty: 7 0RF lidocaine [Lidoderm] 5 % adhesive patch,medicated 1 patch topical DAILY Qty: 15 0RF Rx Instructions: leave on most painful area for up to 12 hrs No Action cefpodoxime 200 mg tablet 200 mg PO BID Qty: 16 0RF Rx Instructions: must administer with a meal/food ibuprofen 400 mg tablet 400 mg PO Q6H PRN (Reason: pain) Qty: 14 0RF acetaminophen 500 mg capsule 1,000 mg PO Q8H PRN (Reason: fever or pain) Qty: 20 0RF albuterol sulfate [Ventolin HFA] 90 mcg/actuation HFA aerosol inhaler 2 puff inhalation Q4-6H PRN (Reason: wheezing) Referrals: [facility] [place] Orthopedic Surgeons [Provider Group] Chante Condon MD [Physician] - Stand Alone Forms: Work/School Release Interventions: ED Discharge Assessment Last Done: 07/26/24 17:53 Discharge Date/Time: 07/26/24 17:58 Print Language: Gabonese
[2024-07-26] MEDS: Ibuprofen 600 MG TABLET PO (17:38)
[2024-07-26 17:53] VITALS: BP 119/76; PULSE 101; RESP 18; TEMP 36.6; O2SAT 96
== END 2024-07-26 17:58 | disposition home or self-care (01) ==
LOC: HO.ED 17:57
PROVIDERS: Emergency Provider Emergency Medicine; PCP Nurse Practitioner Family
DX: S93.401A Sprain of unspecified ligament of right ankle, initial encounter (principal); S39.012A Strain of muscle, fascia and tendon of lower back, initial encounter; W19.XXXA Unspecified fall, initial encounter; Y93.89 Activity, other specified; Y92.9 Unspecified place or not applicable; Y99.9 Unspecified external cause status; M25.571 Pain in right ankle and joints of right foot
CPT/HCPCS: 72100; 73610; 73630; 99283

== ENCOUNTER → 2024-07-26 16:26 | Outpatient (BNV) | payer MEDICAID, SELFPAY | PROVIDERS: PCP Internal Medicine; Visit Provider Radiology Diagnostic Radiology | DX: S39.012A Strain of muscle, fascia and tendon of lower back, initial encounter (principal); S90.511A Abrasion, right ankle, initial encounter; W19.XXXA Unspecified fall, initial encounter | CPT/HCPCS: 72100; 73610; 73630 ==

== ENCOUNTER 2024-08-03 15:52 | Outpatient (REF) | payer MEDICAID, SELFPAY ==
--- NOTE | ~2024-08-03 | XR_ITS ---
EXAMINATION: XR SACRUM AND COCCYX CLINICAL INFORMATION: coccyx pain s/p fall COMPARISON: None available. Correlation made with lumbar spine radiographs 07/26/2024. TECHNIQUE: 2 views of the sacrum and 2 views of the coccyx were obtained. FINDINGS: There is no definite fracture of the sacrum or coccyx. Sacral arches appear intact. 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 SI joints appear normal. Lower lumbar spine appears normal. Imaged hip joints appear normal. Soft tissues demonstrate an IUD device within the central pelvis. XR/XR sacrum coccyx min 2V IMPRESSION: No definite fracture. Electronically signed by: Vance Velez MD 08/03/2024 04:27 PM EDT RP
--- OUTSIDE RECORDS SUMMARY | 2024-08-03 17:44 | XMS_ITS | Encounter Summary ---
Author Organization [employer] Address [address] [place] [address] Care Team Providers Care Child Center Assistant Name Role Phone Yuliana Lin NP Primary Care Provider [phone] Encounter Details Date Type Department Care Team (Late st Contact Info) Description 08/03/2024 3:30 PM EDT Office Visit [facility] MEDICINE [address] [place] [address] Yuliana Lin NP [address] [place] [address] Elevated blood pressure reading (Primary Dx); Coccyx pain; Morbid obesity (CMS/HCC) Social History Tobacco Use Types Packs/Day Years [...] Sign Reading Time Taken Comments Blood Pressure 136/98 08/03/2024 3:13 PM EDT Pulse 86 08/03/2024 3:13 PM EDT Temperature 36.5 ??C (97.7 ??F) 08/03/2024 3:13 PM ED T Respiratory Rate 19 08/03/2024 3:13 PM EDT Oxygen Saturation 98% 08/03/2024 3:13 PM EDT Inhaled Oxygen Concentration - - Weight 114 kg (251 lb) 08/03/2024 3:13 PM EDT Height 152.4 cm (5') 08/03/2024 3:13 PM EDT Body Mass Index 49.02 08/03/2024 3:13 PM EDT documented in this encounter Plan of Treatment Upcoming Encounters Date Type Department Care Team (Late st Contact Info) Description 09/01/2024 11:30 AM EDT Office Visit [facility] MEDICINE [address] [place] [address] Yuliana Lin NP [address] [place] [address] documented as of this encounter Procedures Procedure Name Priority Date/Time Associated Diagnosis Comments XR SACRUM COCCYX 2+ VIEWS Routine 08/03/2024 3:53 PM EDT Coccyx pain documented in this encounter Results * XR Sacrum Coccyx 2+ Views (08/03/2024 3:53 PM EDT) Anatomical Region Laterality Modality Sacrum, Coccyx Radiographic Kelly ging 08/03/2024 3:53 PM EDT Narrative 08/03/2024 4:30 PM EDT ?[facility] ?[address] ?[place] [address] ?XRay Report ? Signed ? Patient: Isaias Reddy,Zee Orellana ? MR#: [id number] ? : 1990 ?Acct:[id number] ? Age/Sex: 33 / F ?ADM Date: 08/03/24 ? Loc: HO.HHCX ? Attending Dr: Yuliana Lin AIR BREAKER OPERATOR ? Ordering Physician: Yuliana Lin AIR BREAKER OPERATOR ?? Date of Service: 08/03/24 ?? Procedure(s): XR sacrum coccyx min 2V ?? Accession Number(s): [id number] ? cc: Yuliana Lin AIR BREAKER OPERATOR ? EXAMINATION: ?? XR SACRUM AND COCCYX ? CLINICAL INFORMATION: ?? coccyx pain s/p fall ? COMPARISON: ?? None available. ?? Correlation made with lumbar spine radiographs 07/26/2024. ? TECHNIQUE: ?? 2 views of the sacrum and 2 views of the coccyx were obtained. ? FINDINGS: ?? There is no definite fracture of the sacrum or coccyx. Sacral arches ?? appear intact. 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 SI joints appear ?? normal. Lower lumbar spine appears normal. Imaged hip joints appear ?? normal. ? Soft tissues demonstrate an IUD device within the central pelvis. ? XR/XR sacrum coccyx min 2V ?? IMPRESSION: ?? No definite fracture. ? Electronically signed by: ??Vance Velez MD ??08/03/2024 04:27 PM EDT RP ? Dictated By: ?Vance Velez MD ? Signed By: ?<Electronically signed by Vance Velez MD in OV> ?08/03/24 1627 ? DD/DT: 08/03/ 1553 ? TD/TT: 08/03/24 1554 ? Tobacco Sampler: ? Procedure Note Yuval Image - 08/03/2024 [facility] [address] [place] [address] XRay Report Signed Patient: Zee Lott MR#: [id number] : 1990Acct:[id number] Age/Sex: 33 / FADM Date: 08/03/24 Loc: [facility] Attending Dr: Yuliana Lin NP Ordering Physician: Yuliana Lin NP Date of Service: 08/03/24 Procedure(s): XR sacrum coccyx min 2V Accession Number(s): [id number] cc: Yuliana Lin AIR BREAKER OPERATOR EXAMINATION: XR SACRUM AND COCCYX CLINICAL INFORMATION: coccyx pain s/p fall COMPARISON: None available. Correlation made with lumbar spine radiographs 07/26/2024. TECHNIQUE: 2 views of the sacrum and 2 views of the coccyx were obtained. FINDINGS: There is no definite fracture of the sacrum or coccyx. Sacral arches appear intact. 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 SI joints appear normal. Lower lumbar spine appears normal. Imaged hip joints appear normal. Soft tissues demonstrate an IUD device within the central pelvis. XR/XR sacrum coccyx min 2V IMPRESSION: No definite fracture. Electronically signed by: Vance Velez MD 08/03/2024 04:27 PM EDT Dictated By: Vance Velez MD Signed By: <Electronically signed by Vance Velez MD in OV> 08/03/24 1627 DD/ 1553 TD/TT: 08/03/24 1554 Tobacco Sampler: us Yuliana Lin NP IMG XR PROCEDURES Final Result documented in this encounter Visit Diagnoses Diagnosis Elevated blood pressure reading- Primary Elevated blood pressure reading without diagnosis of hypertension Coccyx pain Other disorder of coccyx Morbid obesity (CMS/HCC) Morbid obesity documented in this encounter Additional Health Concerns Assessment Noted Time PHQ-9 Depression Total Score: 10 025 10:49 AM EST documented as of this encounter Care Teams Child Center Assistant Relationship Specialty Start Date End Date Yuliana Lin NP [address] [place] [address] PCP - General Family Medicine 03/24/24 documented as of this encounter
--- OUTSIDE RECORDS SUMMARY | 2024-08-03 17:44 | XMS_ITS | Clinical Summary ---
Demographics Address [address] [place] [address] Mobile Phone Email Address Preferred Language Dominican; Castilian Marital Status Single Jehovah'S Witness Affiliation Unknown Race White Ethnic Group or Author Organization [facility] Address [address] [place] [address] Support Name Relationship Address Phone Sivakumar Hayward Personal Relationship [address] [place] [address] Vee Esparza Sister [address] [place] [address] Care Team Providers Care Media Director Name Role Phone Dre Parrish PA-C Primary [...] allergic rhinitis due to pollen Place [address] [place] in both nostrils once daily 16 g [...] 04/25/2021 Overview (11/02/2020): Discuss HGB electrophoresis at [facility] OB-CMI score: 1 [12/01/2019] . Group PN care? * Rh * GC/Chlam * PAP Tdap * Flu * Hgb * GTT * 28 wk Repeat RPR * GBS * PPBC * screening * Immunizations Immunization Administration Dates Next Due INFLUENZA, SEASONAL, INJECTABLE [...] Health Maintenance Due Date Last Done Comments Anxiety Screening 1989 Dental FMX/Pano 1989 HPV Screening 1990 Imm-Hepatitis [...] Relationship Safety Screening/Counseling 07/11/2023 07/10/2022, 12/07/2021, 04/25/2021 [id number] ( season) 2024 04/12/2021, 09/12/2020, 08/15/2020 Imm-Influenza [...] HEPATITIS C ANTIBODY NON-REACT MARISABEL NON-REACT MARISABEL [employer] [facility] SIGNAL TO CUT-OFF 0.01 <1.00 Dissolve Comment: HCV antibody was non-reactive. There is no laboratory evidence of HCV infection. In most cases, no further action is required. However, if recent HCV exposure is suspected, a test for HCV RNA (test code 66838) is suggested. For additional information please refer to http://MyRepublic.CloudCrowd/faq/XMF22s9 (This link is being provided for informational/ educational purposes only.) Blood Blood / Unknown 12/30/2020 1 1:56 AM EDT 12/30/2020 11:57 AM EDT Amparo Blandon [employer] MACHINE OPERATOR-C LAB - BLOOD DRAW Edited Resu lt - Final [employer] [facility] [address] [address], [employer] [facility] [address] [address] * HIV 1/2 AG & AB W/RFLX (4TH GEN) (12/30/2020 11:56 AM EDT) HIV AG/AB, 4TH GEN NON-REAC TIVE NON-REAC TIVE [employer] [facility] Comment: HIV-1 antigen and HIV-1/HIV-2 antibodies were [...] ?? For additional information please refer to http://education.CloudCrowd/faq/JVG511 (This link is being provided for informational/ educational purposes only.) The performance of this assay has not been clinically validated in patients less than 2 years old. Blood Blood / Unknown 12/30/2020 1 1:56 AM EDT 12/30/2020 11:57 AM EDT Amparo GLEZP-C LAB - BLOOD DRAW Edited Resu lt - Final [facility] [address] [address], [place] [facility] [address] [address] * PAP W/ HPV (03/03/2020 3:00 AM EDT) 03/03/2020 3:00 AM EDT Amparo GLEZP-C LAB - NO BLOOD DRAW Final Re sult from Last 3 Months or Most Recently Relevant to Health Maintenance [place] [address] [employer] Care Teams Media Director Relationship Specialty Start Date End Date Dre Parrish PA-C [address] [place] [address] PCP - General FAMILY MEDICINE, [place] 04/04/23
--- OUTSIDE RECORDS SUMMARY | 2024-08-03 17:44 | XMS_ITS | Encounter Summary ---
Author Organization [facility] [employer] Address [address] [place] [address] Care Team Providers Care Heater Helper Forge Name Role Phone Yuliana Lin NP Primary Care Provider [phone] Reason for Visit * Reason Comments Med Refill Encounter Details Date Type Department Care Team ([facility] Contact Info) Description 05/05/2024 Refill [facility] MEDICINE [address] [place], [place] [phone] Yuliana Lin NP [address] [place] [address] Social History Tobacco Use Types Packs/Day Years [...] Description 09/01/2024 11:30 AM EDT Office Visit [facility] MEDICINE [address] [place] [address] Yuliana Lin NP [address] [place] [address] documented as of this encounter Visit Diagnoses Not on filedocumented in this encounter Additional Health Concerns Assessment Noted Time PHQ-9 Depression Total Score: 9 07/19/19 24 9:57 AM EDT documented as of this encounter Care Teams Heater Helper Forge Relationship Specialty Start Date End Date Yuliana Lin NP [address] [place] [address] PCP - General Family Medicine 03/24/24 documented as of this encounter
--- OUTSIDE RECORDS SUMMARY | 2024-08-03 17:44 | XMS_ITS | Encounter Summary ---
Author Organization [employer] Address [address] [facility] [address]t [place] [address] Care Team Providers Care Pattern And Chain Maker Name Role Phone Yuliana Lin NP Primary Care Provider [phone] Reason for Visit * Reason Onset Date Comments Nurse Triage 07/30/2024 Encounter Details Date Type Department Care Team ([facility] st Contact Info) Description 07/30/2024 Telephone [facility] MEDICINE [address] [place] [address] Yuliana Lin, CRISTOPHER [address] [place] [address] Nurse Triage Social History Tobacco Use Types Packs/Day Years [...] encounter Miscellaneous Notes * Telephone Encounter - Beth Anguiano LPN - 07/30/2024 2:07 PM EDT Triage call returned to patient x 2 with [employer] Patient Care Manager [place] [phone]. Patient reports pain in low back coccyx injury with recent fall. Negaive for fractures seen in ED. Patient is using Lidocaine patches as ordered and cyclobenzaprine which patient reports has been helpful for ankle injury but not tailbone pain. Patient provided home recommendations alternating pressure when seated.Patient is also taking Tylenol as needed for discomfort. .Disposition reviewed and patient in agreement with plan ASK/PCP on 08/03/24 330pm. Protocol Used: Back Injury (Adult) Protocol-Based Disposition: See in Office or Video Visit within 3 Days Video visit offer not recorded Positive Triage Question: * Injury and pain has not improved after 3 days * All higher-acuity triage questions were negative Care Advice Discussed: * Use Heat on Area After 48 Hours * Rest vs. Movement * Reasons To Call Back - Severe pain lasts over 2 hours after pain medicine and ice - You become worse * Telephone Encounter - Lori Riggs - 07/30/2024 1:43 PM EDT Patient calling to report ED visit on : Date: 07/25 Hospital: [facility] Seen for: Fall Symptomatic Yes (back pain) *if yes message should go to Triage Patient advised will forward to team nurse for follow up Pt requesting referral (orthopedic), pt states has an appt for October at [address] [place] [address] [place] [address] angolan documented in this encounter Plan of Treatment Upcoming Encounters Date Type Department Care Team (Late st Contact Info) Description 09/01/2024 11:30 AM EDT Office Visit [facility] MEDICINE [address] [facility] [address] Yuliana Lin NP [address] [place] [address] documented as of this encounter Visit Diagnoses Not on filedocumented in this encounter Additional Health Concerns Assessment Noted Time PHQ-9 Depression Total Score: 10 025 10:49 AM EST documented as of this encounter Care Teams Pattern And Chain Maker Relationship Specialty Start Date End Date Yuliana Lin NP [address] [place] [address] PCP - General Family Medicine 03/24/24 documented as of this encounter
--- OUTSIDE RECORDS SUMMARY | 2024-08-03 17:44 | XMS_ITS | Encounter Summary ---
Author Organization [employer] [facility] Address [address] [place] [address] [address] [address] Care Team Providers Care Supervisor Pigment Making Name Role Phone Keiry West Primary Care Provider [phone] Yuliana Lin NP Primary Care Provider [phone] Encounter Details Date Type Department Care Team (Latest Contact Info) Description 09/03/2018 Abstract [facility] Dental, Provider, DDS Social History Tobacco [...] EDT Office Visit [facility] MEDICINE [address] [place] [address] Yuliana Lin NP [address] [place] [address] documented as of this encounter Visit Diagnoses Not on filedocumented in this encounter Care Teams Supervisor Pigment Making Relationship Specialty Start Date End Date Keiry West FNP [address] [place] [address] PCP - General Family Medicine 07/19/23 03/02/24 Yuliana Lin NP [address] [place] [address] PCP - General Family Medicine 03/24/24 documented as of this encounter
--- OUTSIDE RECORDS SUMMARY | 2024-08-03 17:44 | XMS_ITS | Encounter Summary ---
Author Organization [employer] Address [address] [facility] 7t [place] [address] Care Team Providers Care Rabies Inspector Name Role Phone Yuliana Lin CRISTOPHER Primary Care Provider [phone] Encounter Details Date Type Department Care Team (Latest Contact Info) Description 07/31/2024 Travel Social History Tobacco Use Types Packs/Day [...] Description 09/01/2024 11:30 AM EDT Office Visit [facility] MEDICINE [address] [place] [address] Yuliana Lin NP [address] [place] [address] documented as of this encounter Visit Diagnoses Not on filedocumented in this encounter Additional Health Concerns Assessment Noted Time PHQ-9 Depression Total Score: 10 025 10:49 AM EST documented as of this encounter Care Teams Rabies Inspector Relationship Specialty Start Date End Date Yuliana Lin NP [address] [place] [address] PCP - General Family Medicine 03/24/24 documented as of this encounter
--- OUTSIDE RECORDS SUMMARY | 2024-08-03 17:44 | XMS_ITS | Encounter Summary ---
Author Organization [employer] Address [address] [facility] [address] [place] [address] Care Team Providers Care Electrical Mechanic Name Role Phone Yuliana Lin CRISTOPHER Primary Care Provider [phone] Encounter Details Date Type Department Care Team (Latest Contact Info) Description 08/03/2024 Travel Social History Tobacco Use Types Packs/Day [...] Description 09/01/2024 11:30 AM EDT Office Visit [facility] MEDICINE [address] [place] [address] Yuliana Lin NP [address] [place] [address] documented as of this encounter Visit Diagnoses Not on filedocumented in this encounter Additional Health Concerns Assessment Noted Time PHQ-9 Depression Total Score: 10 025 10:49 AM EST documented as of this encounter Care Teams Electrical Mechanic Relationship Specialty Start Date End Date Yuliana Lin NP [address] [place] [address] PCP - General Family Medicine 03/24/24 documented as of this encounter
--- OUTSIDE RECORDS SUMMARY | 2024-08-03 17:44 | XMS_ITS | Clinical Summary ---
Author Organization [email or web address] [facility] it Address [address] [place] [address] Care Team Providers Care Head Of Acquisitions Name Role Phone Unavailable Primary Care Provider [...]
--- OUTSIDE RECORDS SUMMARY | 2024-08-03 17:44 | XMS_ITS | Encounter Summary ---
Author Organization [employer] Address [address] [facility] 7t [place] [address] Care Team Providers Care Environmental Compliance Specialist Name Role Phone Keiry West WEIGHT AND BALANCE CONTROL AGENT Primary Care Provider [phone] Yuliana Lin NP Primary Care Provider Reason for Visit * Reason Comments Med Refill Encounter Details Date Type Department Care Team ([facility] Contact Info) Description 08/28/2023 Refill [facility] MEDICINE [address] [place] [address] Blanquita Landers MD [address] [place] [address] Vitamin D deficiency Social History Tobacco Use [...] Description 09/01/2024 11:30 AM EDT Office Visit [facility] MEDICINE [address] [place] [address] Yuliana Lin NP [address] [place] [address] documented as of this encounter Visit Diagnoses Diagnosis Vitamin D deficiency documented in this encounter Additional Health Concerns Assessment Noted Time PHQ-9 Depression Total Score: 9 07/19/19 24 9:57 AM EDT documented as of this encounter Care Teams Environmental Compliance Specialist Relationship Specialty Start Date End Date Keiry West FNP [address] [place] [address] PCP - General Family Medicine 07/19/23 03/02/24 Yuliana Lin NP [address] [place] [address] PCP - General Family Medicine 03/24/24 documented as of this encounter
--- OUTSIDE RECORDS SUMMARY | 2024-08-03 17:44 | XMS_ITS | Encounter Summary ---
Author Organization [employer] Address [address] [facility] 7[address] [place] [address] Care Team Providers Care Ux Manager Name Role Phone Keiry WestP Primary Care Provider [phone] Yuliana Lin NP Primary Care Provider [phone] Reason for Visit * Reason Onset Date Comments Medication Question 03/02/2024 Encounter Details Date Type Department Care Team ([facility] Contact Info) Description 03/02/2024 Telephone [facility] MEDICINE [address] [place] [address] Keiry West FNP [address] [place] [address] Medication Question Social History Tobacco Use Types [...] 4:24 PM EST Tc to pt via [facility] senior microstrategy developer id: [id number] to let them know provider would like to see them for a in person visit first before prescribing 0.5 mg Wegovy. News [employer]el Cameraman stayed on the line for 7 minutes thenproceeds to say unable to dial out. Tc to via S senior microstrategy developer services id: [id number] senior microstrategy developer statesscreen is frozen and unable to do dial out. Tc to pt without senior microstrategy developer services and pt states senior microstrategy developer is not needed. Sick on site appt [...] currently on backorder. Tc to [facility] pharmacy who claims that they have the medication in stock but they need a script. Tc to pt via [employer] id: [id number] unable to call back do to system not working and transferred to another senior microstrategy developer id: [id number] to schedule tp appointment and see if they're okay with wegovy script to be sent to [facility]. Pt agrees to plan and verbalized [...] can try to fill at [facility] in [place] as they already have script. Pt verbalized [...] Description 09/01/2024 11:30 AM EDT Office Visit [facility] MEDICINE [address] [place] [address] Yuliana Lin NP [address] [place] [address] documented as of this encounter Visit Diagnoses Diagnosis Obesity (BMI 30.0-34.9) documented in this encounter Additional Health Concerns Assessment Noted Time PHQ-9 Depression Total Score: 9 07/19/19 9:57 AM EDT documented as of this encounter Care Teams Ux Manager Relationship Specialty Start Date End Date Keiry West FNP [address] [place] [address] PCP - General Family Medicine 07/19/23 03/02/24 Yuliana Lin NP [address] [place] [address] PCP - General Family Medicine 03/24/24 documented as of this encounter
--- OUTSIDE RECORDS SUMMARY | 2024-08-03 17:44 | XMS_ITS | Encounter Summary ---
Author Organization [employer] Address [address] [facility] 7[address] [place] [address] Care Team Providers Care Thermal Technician Name Role Phone Yuliana Lin CRISTOPHER Primary Care Provider [phone] Reason for Visit * Reason Onset Date Comments Chart Prep 07/31/2024 Encounter Details Date Type Department Care Team ([facility] st Contact Info) Description 07/31/2024 Telephone [facility] MEDICINE [address] [place] [address] Lucille Sol MA Chart Prep Social History Tobacco Use Types Packs/Day Years [...] encounter Miscellaneous Notes * Telephone Encounter - Lucille Sol MA - 07/31/2024 10:41 AM EDT Chart Prep Labs: done Images: not applicable Vaccines due: Covid, Hep B, PCV20, Flu Referrals: Breast surgery Referral cancelled due to patients BMI is too high. Required BMI is 33 for a breast reduction. Message sent to referring provider Screenings: none Overdue care gaps: none documented in this encounter Plan of Treatment Upcoming Encounters Date Type Department Care Team (Late st Contact Info) Description 09/01/2024 11:30 AM EDT Office Visit [facility] MEDICINE [address] [place] [address] Yuliana Lin NP [address] [place] [address] documented as of this encounter Visit Diagnoses Not on filedocumented in this encounter Additional Health Concerns Assessment Noted Time PHQ-9 Depression Total Score: 10 025 10:49 AM EST documented as of this encounter Care Teams Thermal Technician Relationship Specialty Start Date End Date Yuliana Lin NP [address] [place] [address] PCP - General Family Medicine 03/24/24 documented as of this encounter
--- OUTSIDE RECORDS SUMMARY | 2024-08-03 17:44 | XMS_ITS | Encounter Summary ---
Author Organization [employer] Address [address] [facility] 7t [place] [address] Care Team Providers Care Electrolog Operator Name Role Phone Yuliana Lin CRISTOPHER Primary Care Provider Encounter Details Date Type Department Care Team (Late st Contact Info) Description 06/10/2024 Orders Only [facility] MEDICINE [address] [place] [address] Provider, MD Liban Social History Tobacco Use [...] t he electric, gas, oil or water [employer] threatened to shut off services in your [...] 09/01/2024 11:30 AM EDT Office Visit [facility] MEDICINE [address] [place] [address] Yuliana Lin NP [address] [place] [address] documented as of this encounter Procedures Procedure [...] documented as of this encounter Care Teams Electrolog Operator Relationship Specialty Start Date End Date Yuliana Lin NP [address] [place] [address] PCP - General Family Medicine 03/24/24 documented as of this encounter
--- OUTSIDE RECORDS SUMMARY | 2024-08-03 17:44 | XMS_ITS | Encounter Summary ---
Author Organization [employer] Address [address] [facility] 7t [place] [address] Care Team Providers Care Photocomposing Keyboard Operator Name Role Phone Keiry WestP Primary Care Provider [phone] Yuliana Lin NP Primary Care Provider [phone] Reason for Visit * Reason Onset Date Comments Med Refill 11/24/2023 Encounter Details Date Type Department Care Team ([facility] st Contact Info) Description 11/24/2023 Refill [facility] MEDICINE [address] [place] [address] Keiry West FNP [address] [place] [address] Social History Tobacco Use Types Packs/Day Years [...] Description 09/01/2024 11:30 AM EDT Office Visit [facility] MEDICINE [address] [place] [address] Yuliana Lin NP [address] [place] [address] documented as of this encounter Visit Diagnoses Not on filedocumented in this encounter Additional Health Concerns Assessment Noted Time PHQ-9 Depression Total Score: 9 07/19/19 24 9:57 AM EDT documented as of this encounter Care Teams Photocomposing Keyboard Operator Relationship Specialty Start Date End Date Keiry West FNP [address] [place] [address] PCP - General Family Medicine 07/19/23 03/02/24 Yuliana Lin NP [address] [place] [address] PCP - General Family Medicine 03/24/24 documented as of this encounter
--- OUTSIDE RECORDS SUMMARY | 2024-08-03 17:45 | XMS_ITS | Clinical Summary ---
Author Organization [employer] Address [address] [facility] 7t [place] [address] Care Team Providers Care Manager Social Work Name Role Phone Yuliana Lin CRISTOPHER Primary Care Provider [phone] Allergies Active Allergy Reactions Criticality Noted Date Comments Tramadol Unknown 11/02/2020 Medications budesonide (Pulmicort) 180 MCG/ACT inhaler Inhale 1 puff in the morning and at bedtime. Rinse mouth with water after use to reduce aftertaste and incidence of candidiasis. Do not swallow. 3 each 4 Active ketoconazole (NIZOral) 2 % shampooIndicatio ns:Seborrheic dermatitis Apply topically 2 (two) times a [...] of breath. 18 g 3 5 Active Spacer/Aero-Hold ing Chambers (OptiChamber Radha) misc 1 each every [...] 30 tablet 3 5 05/20/19 26 Active predniSONE (Deltasone) 20 MG tabletIndication s:Mild asthma exacerbation 2 tabs po daily for 5 days 10 tablet 5 Active cromolyn (Nasachrom) 5.2 MG/ACT nasal sprayIndications :Mild asthma exacerbation Administer 1 spray into each nostril 4 times daily. 26 mL 12 5 07/10/19 26 Active Tirzepatide-Weig ht Management (Zepbound) 7.5 MG/0.5ML solution auto-injectorInd ications:Morbid obesity (CMS/HCC) Inject 0.5 mL (7.5 mg) under the skin 1 (one) time per week. 2 mL 2 5 11/02/19 25 Active Tirzepatide-Weig ht Management (Zepbound) 5 MG/0.5ML solution auto-injectorInd ications:Morbid obesity (CMS/HCC) Inject 0.5 mL (5 mg) under the skin 1 (one) time per week. 2 mL 1 5 08/01/19 25 Hospital, Clinic, or Other Facility Administered Medication Ordered Dose Route Frequency Start Date End Date Status acetaminophen (Tylenol) tablet 975 mgIndications:Complicated UTI (urinary tract infection) 975 mg PO Once 07/23/2024 07/23/2024 Ended Active Problems Problem Noted Date Diagnosed Date Elevated blood pressure reading 08/03/2024 Coccyx pain 08/03/2024 PCOS (polycystic ovarian syndrome) 07/31/2024 Uses Mohawk as primary spoken language 08/01/19 25 Asthma exacerbation, mild 07/09/2024 Assessment & Plan (07/09/2024 10:35 AM EST): Reports SOB, sore throat and congestion with worsening asthma over the past 5 days. Mild, diffuse wheezing on exam. -prescribed short course of predniSONE (Deltasone) 20 MG, 2 tabs po daily for 5 day -prescribed cromolyn (Nasachrom) 5.2 MG/ACT nasal spray Morbid obesity 06/06/2024 Assessment & Plan (06/06/2024 11:44 AM EST): Continue zepbound, dose titrated q 4 weeks Lifestyle and nutrition recommendations reviewed FH: malignant neoplasm of ovary 06/06/2024 Assessment & Plan (06/06/2024 11:44 AM EST): In care with Wesley clay mixer, pt recently had imaging and labs Pap also managed via clay mixer Chronic bilateral thoracic back pain 06/05/2024 Assessment [...] also STIs Will obtain pelvic US from [facility] and BRUSHER MACHINE notes, she needs to fu with PCP [...] 12/01/2019 Overview (09/13/2023): Discuss HGB electrophoresis at [facility] OB-CMI score: 1 [12/01/2019] . [...] Encounters Date Type Department Care Team Description 08/03/2024 3:30 PM EDT Office Visit [address] [address] Yuliana Lin NP Elevated blood pressure reading (Primary Dx); Coccyx pain; Morbid obesity (CMS/HCC) 08/03/2024 Travel 07/31/[address] [address] Lucille Sol MA Chart Prep 07/31/2024 Travel 07/30/[address] [phone] Yuliana Lin NP Nurse Triage 07/28/2024 Patient Outreach [address] [phone] Yuliana Lin NP Care Coordination (C3 -W Zuly Hurtado telephone call outreach) 07/28/2024 Patient Outreach [facility] [address] [place] [phone] Yuliana Lin NP Care Coordination (C3 -W Zuly Hurtado telephone call outreach) 07/23/2024 1:20 PM EDT Office Visit [facility] [address] [address] Complicated UTI (urinary tract infection) (Primary Dx); Fever, unspecified fever cause 07/23/2024 Orders Only [facility] External Provider, [facility] 07/23/2024 Telephone [facility] [address] [address] Jocelyn Lopez DO 07/17/2024 Population Health Risk Score [facility] (C3) [address] [phone] Provider, Population Health Generic 07/16/2024 1:15 PM EDT Office Visit [facility] [address] [place] [phone] AlbinoSkylar ocampo, OD Hypermetropia, bilateral (Primary Dx) 07/09/2024 10:20 AM EST [facility] [address] [address] Sabiha Michael MD Mild asthma exacerbation (Primary Dx) 07/09/2024 Telephone [facility] [address] [address] Aleyda Kendall RN [facility] triage 07/06/2024 7:00 PM EST Office Visit [facility] [address] [address] Octaviano Thomas MD Viral URI with cough 07/06/2024 Travel 06/10/2024 Orders Only [facility] [address] [place] [phone] ProviderLiban MD 06/08/2024 2:30 PM EST Office Visit [facility] [address] [place] [phone] Liliana Pitts, OD Hypermetropia, bilateral (Primary Dx) 06/08/2024 Travel 06/05/2024 9:00 AM EST Office Visit [facility] [address] [place] [phone] Yuliana Lin NP Healthcare maintenance (Primary Dx); Dietary counseling; Exercise counseling; Chronic bilateral thoracic back pain; Morbid obesity (CMS/HCC); Obesity with body mass index 30 or greater; Severe obesity (CMS/HCC); FH: malignant neoplasm of ovary 06/05/2024 Travel 06/04/2024 Travel 05/26/2024 Patient Outreach [facility] [address] [place] [phone] Yuliana Lin NP 05/26/2024 Patient Outreach [facility] [address] [place] [phone] Yuliana Lin NP Care Coordination ([address] Zuly Hurtado telephone call outreach) 05/22/2024 Patient Outreach [facility] [address] [place] [phone] Yuliana Lin NP Pre-visit Planning (SDOH Screening positive and Tobacco screening negative) 05/21/2024 Telephone [facility] [address] [place] [phone] Lucille Sol MA Chart Prep 05/20/2024 8:40 AM EST Office Visit [facility] [address] [place] [phone] Filiberto Rios MD Influenza B (Primary Dx); Mild intermittent asthma with acute exacerbation 05/05/2024 Refill [facility] [address] [place] [phone] Yuliana Lin NP 05/05/2024 Telephone [facility] [address] [place] [phone] Yuliana Lin NP Medication Question from Last 3 Months Immunizations Name Administration Dates Next Due Hep B, adult 07/19/2023 Influenza, IIV3, injectable 12/01/2020,,03/03/2020 Influenza, seasonal, injecta ble, preservative free 03/03/2020 MMR 07/23/2020,07/22/2020 Pneumococcal Polysaccharide PPSV23 05/26/2021 Tdap [...] Mass Index 49.02 08/03/2024 3:13 PM EDT Plan of Treatment Upcoming Encounters Date Type Department Care Team (Late st Contact Info) Description 09/01/2024 11:30 AM EDT Office Visit [facility] [address] [place] [address] Yuliana Lin NP [address] [place], [place] [phone] Health Maintenance Due Date Last Done Comments Family Planning (PISQ) 2004 Pneumococcal Vaccine: Pediatrics (0 to 5 Years) and At-Risk Patients (6 to 49) Years) (2 of 2 - PCV) 05/26/2022 05/26/2021 Hepatitis B Vaccines (2 of 3 - 19+ 3-dose series) 08/16/2023 07/19/2023 COVID-19 Vaccine ( - season) 2024 04/12/2021, 09/12/2020, 08/15/2020 Influenza Vaccine (#1) 2024 , 05/06/2020, 03/03/2020, Additional history exists Depression Monitoring (PHQ-9) 12/03/2024 06/05/2024, 06/05/2024 SDOH Screening 05/22/2025 05/22/2024 Alcohol/Substance Use Screening 06/05/2025 06/05/2024 Depression Screening 06/05/2025 06/05/2024, 06/05/19 Tobacco Screening 08/03/2025 08/03/2024 Lipid Panel 07/18/2028 07/19/2023, 06/03/2023 Cervical Cancer [...] Routine 08/03/2024 3:53 PM EDT Coccyx pain CULTURE, URINE, ROUTINE Routine 07/23/2024 11:49 PM EDT POCT URINALYSIS DIPSTICK Routine 07/23/2024 4:16 PM EDT Complicated UTI (urinary tract infection) BLOOD CULTURE (SECOND) Routine 07/23/2024 4:09 PM EDT LACTIC ACID Routine 07/23/2024 3:54 PM EDT BLOOD CULTURE (FIRST) Routine 07/23/2024 3:53 PM EDT XR CHEST 2 VIEWS Routine 07/23/2024 3:23 PM EDT POCT INFLUENZA B (ID NOW RAPID MOLECULAR) Routine 07/23/2024 1:18 PM EDT Fever, unspecified fever cause POCT INFLUENZA A (ID NOW RAPID MOLECULAR) Routine 07/23/2024 1:18 PM EDT Fever, unspecified fever cause POCT RAPID STREP A Routine 07/23/2024 1: 18 PM EDT Fever, unspecified fever cause POCT RAPID COVID ANTIGEN Routine 07/23/2024 1:18 PM EDT Fever, unspecified fever cause POCT INFLUENZA B (ID NOW RAPID MOLECULAR) Routine 07/09/2024 10:38 AM EST Mild asthma exacerbation POCT INFLUENZA A (ID NOW RAPID MOLECULAR) Routine 07/09/2024 10:38 AM EST Mild asthma exacerbation POCT RAPID COVID ANTIGEN Routine 07/09/2024 10:38 AM EST Mild asthma exacerbation POCT INFLUENZA A (ID NOW RAPID MOLECULAR) Routine 07/06/2024 7:26 PM EST Viral URI with cough POCT RAPID COVID ANTIGEN Routine 07/06/2024 7:26 PM EST Viral URI with cough POCT INFLUENZA B (ID NOW RAPID MOLECULAR) Routine 07/06/2024 7:25 PM EST Viral URI with cough CULTURE, THROAT Routine 07/06/2024 7:22 PM EST Viral URI with cough POC [...] Recently Relevant to Health Maintenance Results * XR Sacrum Coccyx 2+ Views (08/03/2024 3:53 PM EDT) Anatomical Region Laterality Modality Sacrum, Coccyx Radiographic Kelly ging 08/03/2024 3:53 PM EDT Narrative 08/03/2024 4:30 PM EDT ?[facility] ?[address] ?[place] [address] ?XRay Report ? Signed ? Patient: Zee Lott ? MR#: [id number] ? : 1990 ?Acct:[id number] ? Age/Sex: 33 / F ?ADM Date: 08/03/24 ? Loc: HO.HHCX ? Attending Dr: Yuliana Lin TECHNICIAN TERMINAL AND REPEATER ? Ordering Physician: Yuliana Lin TECHNICIAN TERMINAL AND REPEATER ?? Date of Service: 08/03/24 ?? Procedure(s): XR sacrum coccyx min 2V ?? Accession Number(s): [id number] ? cc: Yuliana Lin TECHNICIAN TERMINAL AND REPEATER ? EXAMINATION: ?? XR SACRUM AND COCCYX [...] Velez MD in OV> ?08/03/24 1627 ? DD/ 1553 ? TD/TT: 08/03/24 1554 ? Environmental Compliance Officer: ? Procedure Note Otonielglendyadriannacharo, Image - 08/03/[address] [address] XRay Report Signed Patient: Zee Lott MR#: [id number] : 1990Acct:[id number] Age/Sex: 33 / FADM Date: 08/03/24 Loc: HO.HHCX Attending Dr: Yuliana Lin TECHNICIAN TERMINAL AND REPEATER Ordering Physician: Yuliana Lin NP Date of Service: 08/03/24 Procedure(s): XR sacrum coccyx min 2V Accession Number(s): [id number] cc: Yuliana Lin TECHNICIAN TERMINAL AND REPEATER EXAMINATION: XR SACRUM AND COCCYX CLINICAL INFORMATION: [...] 08/03/24 1627 DD/ 1553 TD/TT: 08/03/24 1554 Environmental Compliance Officer: Yuliana Lin NP IMG XR PROCEDURES Final Result * Culture, Urine, Routine (07/23/2024 11:49 PM EDT) Urine Urine specimen obtained by clean catch procedure / Unknown 07/23/2024 11:49 PM EDT 07/23/2024 11:49 PM EDT Comment:UACC Narrative [facility] - 07/27/2024 8:08 AM EDT Escherichia coli Quant > 100,000 cfu/mL Escherichia coli: Ampicillin <=2(S) Escherichia coli: Cefazolin (Urine) <=1(S) Escherichia coli: Cefepime <=0.12(S) Escherichia coli: Ceftriaxone <=0.25(S) Escherichia coli: Ciprofloxacin <=0.06(S) Escherichia coli: Gentamicin <=1(S) Escherichia coli: Nitrofurantoin <=16(S) Escherichia coli: Trimethoprim/Sulfamethoxazole <=20(S) Specimen Source: Urine clean catch Generic External Data Provider LAB MICROBIOLOGY - GENERAL ORDERABLES Final Result [facility] [address] [place] [phone] * (ABNORMAL) POCT urinalysis dipstick manually resulted (07/23/2024 4:16 PM EDT) Color, UA Yellow Clarity, UA Clear Glucose, UA Negative Bilirubin, UA Negative Ketones, UA Positive Comment:40 mg/dL Spec Grav, UA 1.015 Blood, UA Positive(A) Negative, None Detected Comment:Moderate pH, UA 6.0 Protein, UA Few 15 Comment:100 mg/dL Urobilinogen, UA 0.2 Leukocytes, UA Many(A) Negative, Rare, Trace Comment:Large Nitrite, UA Negative Negative, None Detected Urine 07/23/2024 4:16 PM EDT us Jocelyn Lopez DO POINT OF CARE TEST ENTER/PIOTR T ORDERABLES Final Result * Blood Culture (Second) (07/23/2024 4:09 PM EDT) Blood Venous blood specimen / Unknown 07/23/2024 4:09 PM EDT 07/23/2024 4:12 PM EDT Comment:Blood Narrative [facility] - 07/28/2024 6:13 PM EDT Blood Culture (Second) No growth after 5 days. Specimen Source: Blood us Generic External Data Provider LAB MICROBIOLOGY - GENERAL ORDERABLES Final Result Performing Organization Address [facility] Co de Phone Number [facility] [address] [place] [phone] * Lactic Acid (07/23/2024 3:54 PM EDT) Lactic Acid 1.5 0.5 - 2.0 mmol/L [facility] 07/23/2024 3:54 PM EDT 07/23/2024 4:01 PM EDT Generic External Data Provider LAB BLOOD ORDERAB LES Final Result Performing Organization Address [facility] Co de Phone Number [facility] [address] [place] [phone] * Blood Culture (First) (07/23/2024 3:53 PM EDT) Blood Venous blood specimen / Unknown 07/23/2024 3:53 PM EDT 07/23/2024 4:01 PM EDT Comment:Blood Narrative [facility] - 07/28/2024 6:01 PM EDT Blood Culture (First) No growth after 5 days. Specimen Source: Blood Generic External Data Provider LAB MICROBIOLOGY - GENERAL ORDERABLES Final Result Performing Organization Address [facility] Co de Phone Number [facility] [address] [place] [phone] * XR Chest 2 Views (07/23/2024 3:23 PM EDT) Anatomical Region Laterality Modality Chest Radiographic Kelly ging 07/23/2024 3:23 PM EDT Narrative 07/23/2024 3:40 PM EDT ? [facility] ?[address] ?[place] [address] ?XRay Report ? Signed ? Patient: Isaias Reddy,Tenzinhaylie Orellana ? MR#: [id number] ? : 1990 ?Acct:[id number] ? Age/Sex: 33 / F ?ADM Date: 07/23/24 ? Loc: HO.ED ? Attending Dr: ? Ordering Physician: Arun Buckner MD ?? Date of Service: 07/23/24 ?? Procedure(s): XR chest 2V ?? Accession Number(s): [id number] ? cc: Yuliana Lin TECHNICIAN TERMINAL AND REPEATER; Arun Buckner MD ? EXAMINATION: ??XR CHEST 2 VIEWS ? HISTORY: fever, cough ? COMPARISON: Comparison is made with the prior examination dated ?? 02/06/2018. ? FINDINGS: ??PA and lateral views of the chest are submitted. The lungs ?? are expanded and clear. ??There is no pleural effusion, pneumothorax, or ?? pulmonary vascular congestion. ??The heart is normal in size. ??The bones ?? are intact. ? XR/XR chest 2V ?? IMPRESSION: ?? No acute cardiopulmonary abnormality. ? Electronically signed by: ??Shelton Marshall MD ??07/23/2024 03:35 PM EDT ? Dictated By: ?Shelton Marshall MD ? Signed By: ?<Electronically signed by Shelton Marshall MD in OV> ?07/23/24 1535 ? DD/ 1523 ? TD/TT: 07/23/24 1530 ? Environmental Compliance Officer: ? Procedure Note Yuval, Image - 07/23/2024 [facility] [address] [facility] [place] [address] XRay Report Signed Patient: Isaias Zee Reddy MR#: [id number] : 1990Acct:[id number] Age/Sex: 33 / FADM Date: 07/23/24 Loc: HO.ED Attending Dr: Ordering Physician: Arun Buckner MD Date of Service: 07/23/24 Procedure(s): XR chest 2V Accession Number(s): [id number] cc: Yuliana Lin TECHNICIAN TERMINAL AND REPEATER; Arun Buckner MD EXAMINATION: XR CHEST 2 VIEWS HISTORY: fever, cough COMPARISON: Comparison is made with the prior examination dated 02/06/2018. FINDINGS: PA and lateral views of the chest are submitted. The lungs are expanded and clear. There is no pleural effusion, pneumothorax, or pulmonary vascular congestion. The heart is normal in size. The bones are intact. XR/XR chest 2V IMPRESSION: No acute cardiopulmonary abnormality. Electronically signed by: Shelton Marshall MD 07/23/2024 03:35 PM EDT RP Dictated By: Shelton Marshall MD Signed By: <Electronically signed by Shelton Marshall MD in OV> 07/23/24 1535 DD/ 1523 TD/TT: 07/23/24 1530 Environmental Compliance Officer: [facility] External Provider IMG XR PROCEDURES Final Result * Influenza B (ID NOW Rapid Molecular) (07/23/2024 1:18 PM EDT) Only the most recent of4 resultswithin the time period is included. Influenza B Negative Negative, Indeterminate [facility] Swab 07/23/2024 1:18 PM EDT Jocelyn Lopez DO POINT OF CARE TEST ENTER/PIOTR T ORDERABLES Final Result [facility] [address] [place] [phone] * Influenza A (ID NOW Rapid Molecular) (07/23/2024 1:18 PM EDT) Only the most recent of4 resultswithin the time period is included. Influenza A Negative Negative, Indeterminate [facility] Swab 07/23/2024 1:18 PM EDT Jocelyn Lopez DO POINT OF CARE TEST ENTER/PIOTR T ORDERABLES Final Result Performing Organization Address [facility]/ZIP Co de Phone Number [facility] [address] [place] [phone] * POCT Rapid COVID Ag (07/23/2024 1:18 PM EDT) Only the most recent of4 resultswithin the time period is included. Rapid COVID Ag Negative [facility] Swab 07/23/2024 1:18 PM EDT Jocelyn Lopez DO POINT OF CARE TEST ENTER/PIOTR T ORDERABLES Final Result Performing Organization Address [facility] Co de Phone Number [facility] [address] [place] [phone] * POCT rapid strep A manually resulted (07/23/2024 1:18 PM EDT) Only the most recent of2 resultswithin the time period is included. [facility] Rapid Strep A Screen Negative Negative, None Detected [facility] Swab 07/23/2024 1:18 PM EDT Jocelyn Lopez DO POINT OF CARE TEST ENTER/PIOTR T ORDERABLES Final Result Performing Organization Address [facility] Co de Phone Number [facility] [address] [place] [phone] * Culture, Throat (07/06/2024 7:22 PM EST) Throat Structure of anterior portion of neck / Unknown 07/06/2024 7:22 PM EST 07/07/2024 11:26 AM EST Comment:Throat Narrative [facility] - 07/09/2024 7:48 AM EST Throat Culture No Group A Beta-hemolytic Streptococci isolated. Specimen Source: Throat Octaviano Thomas MD LAB MICROBIOLOGY - GENERAL ORDER ES Final Result Performing Organization Address [facility]/ZIP Co de Phone Number [facility] [address] [place] [address] [phone] * POCT Rapid Strep A HEATH ID NOW (07/06/2024 7:21 PM EST) Rapid Strep A Screen Negative Negative, None Detected QC Media Lot # [id number] Lot# Expiration Date Swab 07/06/2024 7:21 PM EST Octaviano Thomas MD POINT OF CARE TEST ENTER/EDIT OR DERABLES Final Result * HM PAP/HPV (08/14/2023 11:27 AM EDT) Liban Provider HEALTH MAINTENANCE Final Result * Hepatitis Panel, General (08/07/2023 12:12 PM EDT) Pathologist [facility] Hepatitis A IgM Nonreactive Nonreactive [facility] Comment:IgM antibodies to MARTINEZ V not detected; does not exclude earlyacute or recovered HAV infection. ~Hepatitis B Surface Antibody REACTIVE Nonreactive [facility] Comment:REACTIVE: > 11.99 mI U/mL Hepatitis B Core Antibody Nonreactive Nonreactive [facility] Hepatitis C Antibody Nonreactive Nonreactive [facility] Comment:Antibodies to HCV no t detected; does not exclude early acuteHCV infection. Hepatitis B Surface Ag Negative Negative [facility] Blood 08/07/2023 12:1 2 PM EDT 08/07/2023 1:20 PM EDT Angie GLEZP LAB BLOOD ORDERABLES Final Res ult Performing Organization Address City/[facility]/ZIP Co de Phone Number [facility] [address] [place] [phone] * (ABNORMAL) Lipid Panel, Standard (07/19/2023 10:10 AM EDT) Triglycerides 77 <150 mg/dL [facility] Comment:Desirable Triglyceri de: less than 150 mg/dLBorderline High Triglyceride 150-199 mg/dLHigh Triglyceride: 200-499 mg/dLVery High Triglyceride: greater than or equal to 5OO mg/dL Cholesterol 222(H) <200 mg/dL [facility] Comment:Desirable Cholestero l: less than 200 mg/dLBorderline High Cholesterol: 200-239 mg/dLHigh Cholesterol: greater than 239 mg/dL LDL Cholesterol Calculated 144(H) <100 mg/dL [facility] Comment:Desirable LDL: less than 100 mg/dLNear Optimal/Above Optimal LDL: 110- 129 mg/dLBorderline High LDL: 130-159 mg/dLHigh LDL: 160-189 mg/dLVery High LDL: greater than or equal to 190 mg/dL HDL Cholesterol 63 >40 mg/dL [facility] Comment:Desirable HDL: great er than 40 mg/dL Note: This HDL assay may give artificially low results in patients with liver disease. Blood Venous blood specimen / Unknown 07/19/2023 10:10 AM EDT 07/19/2023 11:30 AM EDT us [place] ASSISTANT LAB BLOOD ORDERABLES Final Resu lt [facility] [address] [place] [phone] from Last 3 Months or Most Recently Relevant to Health Maintenance Insurance [facility] [address] [place] [phone] Care Teams Manager Social Work Relationship Specialty Start Date End Date Yuliana Lin NP [address] [place] [phone] PCP - General Family Medicine 03/24/24
== END 2024-08-03 15:53 | disposition home or self-care (01) ==
LOC: HO.HHCX 15:52
PROVIDERS: Visit Provider Nurse Practitioner Family
DX: M53.3 Sacrococcygeal disorders, not elsewhere classified (principal)
CPT/HCPCS: 72220

== ENCOUNTER → 2024-08-03 15:53 | Outpatient (BNV) | payer MEDICAID, SELFPAY | PROVIDERS: Visit Provider Radiology Diagnostic Radiology | DX: M53.3 Sacrococcygeal disorders, not elsewhere classified (principal) | CPT/HCPCS: 72220 ==

== ENCOUNTER 2024-10-14 11:13 | Outpatient (REF) | payer MEDICAID, SELFPAY ==
[2024-10-15 11:48] LABS: Appearance Urine Turbid; Color Urine Yellow; Glucose Urine UA Negative (Negative); Leukocyte Esterase Urine Large (3+) (Negative); Nitrite Urine Positive (Negative); PH 5.5 (5.0-9.0); Specific Gravity - Urine 1.025 (1.005-1.025); UMIC TRIGGER UACC YES; Urine Blood Large (3+) (Negative); Urine Ketones Negative (Negative); Urine Protein Trace mg/dL (Neg-Trace)
[2024-10-15 12:11] LABS: Bacteria Urine 4+ (None Seen); Calcium Oxalate Crystals Urine Present; Hyaline Casts Urine 0-2 /LPF (0-2); UACC Culture Trigger YES
--- OUTSIDE RECORDS SUMMARY | 2024-10-15 13:10 | XMS_ITS | Clinical Summary ---
Author Organization [facility] it Address [address] [place] [address] Care Team Providers Care Larder Cook Name Role Phone Unavailable Primary Care Provider [...] Screening: P ap Smear 2010 COVID-19 Vaccine (2023-2 5 season) 2024 Influenza Vaccine (Season Ended) 2025 HIB Vaccines Aged Out No longer eligi [...] age to complete this topic Meningococcal B Vaccine Aged Out No l onger eligible based on patient's age to complete [...]
== END 2024-10-14 11:14 | disposition home or self-care (01) ==
LOC: HO.HHCLNP 11:13
PROVIDERS: PCP Family Medicine; Visit Provider Family Medicine
DX: N39.0 Urinary tract infection, site not specified (principal); B95.1 Streptococcus, group B, as the cause of diseases classified elsewhere
CPT/HCPCS: 81001; 87086; 87147

== ENCOUNTER 2024-10-30 05:37 | Emergency (ER) | payer MEDICAID, SELFPAY ==
[2024-10-30] VITALS (7 sets, daily range): BP systolic 103–148; BP diastolic 61–80; PULSE 58–88; RESP 16–17; TEMP 36.2–36.6; O2SAT 97–100; BMI 38.6
--- NOTE | 2024-10-30 | ECG_ITS ---
Test Reason : NAUSEA VOMITING Blood Pressure : */* mmHG Vent. Rate : 61 BPM Atrial Rate : 61 BPM P-R Int : 148 ms QRS Dur : 76 ms QT Int : 442 ms P-R-T Axes : 39 8 37 degrees QTcB Int : 444 ms Normal sinus rhythm with sinus arrhythmia Cannot rule out Anterior infarct , age undetermined Abnormal ECG No previous ECGs available Referred By: Generic ED Physician Electronically Signed By: ALEXANDRA CADE
[2024-10-30 06:14] LABS: MANUAL DIFF FLAG NO
[2024-10-30 06:16] LABS: Basophils Absolute Auto 0.1 X10*3/uL (0.0-0.2); Basophils Percent Auto 0.8 % (0-2); Eosinophils Absolute Auto 0.2 X10*3/uL (0.0-0.4); Hemoglobin 13.8 g/dl (12.0-16.0); Imm Gran Abs Auto 0.07 X10*3/uL (0.00-0.03); Imm Gran Pct Auto 1.1 % (0.0-0.4); Lymphocytes Absolute Auto 1.6 X10*3/uL (1.2-4.9); Lymphocytes Percent Auto 24.2 % (20-40); Mean Corpuscular HGB Conc 32.9 g/dl (31.0-35.0); Mean Corpuscular Hemoglobin 27.9 pg (27.0-33.0); Mean Corpuscular Volume 84.8 fL (80.0-98.0); Mean Platelet Volume 11.2 fL (9.4-12.3); Monocytes Absolute Auto 0.5 X10*3/uL (0.1-1.2); Monocytes Percent Auto 7.9 % (2-11); Neutrophils Absolute Auto 4.2 x10*3/uL (2.0-8.3); Platelet Count 265 X10*3/uL (160-400); Red Blood Count 4.95 X10*6/uL (4.20-5.50); Red Cell Distribution Width 14.9 % (11.0-16.0); White Blood Count 6.6 X10*3/uL (4.8-10.8)
--- OUTSIDE RECORDS SUMMARY | 2024-10-30 06:42 | XMS_ITS | Encounter Summary ---
Author Organization [employer] Address [address] [facility] [address] [place] [address] Care Team Providers Care Implementation Consultant Name Role Phone Keiry West POOL HAND Primary Care Provider [phone] Yuliana Lin NP Primary Care Provider [phone] Reason for Visit * Reason Comments Med Refill Encounter Details Date Type Department Care Team ([facility] Contact Info) Description 08/28/2023 Refill [facility] [address] [place] [address] Blanquita Landers MD [address] [place] [address] Vitamin D deficiency Social History Tobacco Use [...] Care Team (Late st Contact Info) Description 12/01/2024 1:45 PM EDT Office Visit [facility] [address] [place] [address] Yuliana Lin NP [address] [place] [address] documented as of this encounter Visit Diagnoses Diagnosis Vitamin D deficiency documented in this encounter Additional Health Concerns Assessment Noted Time PHQ-9 Depression Total Score: 9 07/19/19 24 9:57 AM EDT documented as of this encounter Care Teams Implementation Consultant Relationship Specialty Start Date End Date Keiry West FNP [address] [place] [address] PCP - General Family Medicine 07/19/23 03/02/24 Yuliana Lin NP [address] [place] [address] PCP - General Family Medicine 03/24/24 documented as of this encounter
[2024-10-30 06:44] LABS: IDNOW Serial# 6674DD1D; Strep A Nucleic Acid Negative (Negative)
--- NOTE | 2024-10-30 07:03 | ED_ITS ---
HPI - General Adult General Chief complaint: Upper Respiratory Symptoms Stated complaint: NAUSEA/VOMIT Time Seen by Provider: 10/30/24 07:03 History of Present Illness ED Provider: Sita MENCHACA narrative: The patient is a 33-year-old female who says that she has not been feeling well for about 2 days. She has had episodes of dizziness and not feeling well. She says that the dizziness is somewhat positional with regard to her movements of her head. She has had some nausea. She vomited twice after trying to drink some water yesterday. This morning at around 1 or 02:00 her symptoms seemed significantly worse and she ultimately called an ambulance and was brought to the hospital by ambulance. She does not think she has had a fever although her 4-year-old son with whom she lives has been ill with a fever about 3 or 4 days ago. He is better now. Her only medication is a weekly injection of the weight loss drug. Related Data Home Medications ?Medication ?Instructions ?Recorded ?Confirmed albuterol sulfate 90 mcg/actuation 2 puff inhalation Q 4-6H PRN 04/07/24 04/20/24 aerosol inhaler (Ventolin HFA) wheezing Previous Rx's ?Medication ?Instructions ?Recorded acetaminophen 500 mg capsule 1,000 mg (2 x 500 mg) PO Q8H PRN 07/23/24 fever or pain #20 caps cefpodoxime 200 mg tablet 200 mg PO BID #16 tabs 07/23 ibuprofen 400 mg tablet 400 mg PO Q6H PRN pain #14 t abs 07/23/24 cyclobenzaprine 5 mg tablet 5 mg PO Q8H PRN muscle reinaldo n #7 tabs 07/26/24 lidocaine 5 % topical patch 1 patch topical DAILY #15 ea 07/26/24 (Lidoderm) Allergies Allergy/AdvReac Type Severity Reaction Status Date / Time tramadol Allergy Severe Anaphylaxis Verified 10/30/24 05:52 Review of Systems 2 Review of Systems: Yes all other systems are reviewed and are negative PMF Past Medical History Medical History Anxiety Asthma Morbid obesity No pertinent past medical history Surgical History Hx of oral surgery Hx of tubal ligation Family History Family History Mother Cancer Thyroid condition Father Hypertension Son No problems noted. Social History Social History Alcohol intake: current Alcohol intake frequency: does not drink Patient Tobacco Use Status: Never used Tobacco Smoked in Last 30 Days: No Use of substances other than those prescribed or required for medical reasons: No Advance Directives: No Advance Directives Information Provided: Yes Do you have a plan to hurt others: No Plan Physical Exam ED Vital Signs: Vital Signs - 24 hr 10/30/24 05:49 10/30/24 06:48 10/30/24 07:17 Temperature 97.1 F Pulse Rate 80 73 Respiratory Rate 16 16 Blood Pressure 111/79 103/74 Pulse Oximetry 97 97 97 Oxygen Delivery Method Room Air Room Air Room Air 10/30/24 09:41 Temperature 97.8 F Pulse Rate 58 Respiratory Rate 17 Blood Pressure 105/61 Pulse Oximetry 100 Oxygen Delivery Method Room Air BMI result Body Mass Index 38.6 Const Other: The patient is awake and alert. She looks as if she feels mildly unwell but she does not appear obviously toxic. She is pleasant and cooperative. She is in no respiratory distress. HENMT Other: Face is symmetrical. The posterior pharynx is normal. The appearance of the face is unremarkable. Eyes General: appearance normal, both eyes and all related structures Conjunctivae: conjunctivae normal Corneas: corneas normal Pupils: Equal, round and reactive pupils present EOM: EOMs intact bilaterally Neck Other: No cervical adenopathy, the neck is supple Resp Effort & Inspection: normal respiratory effort Auscultation: clear to auscultation bilaterally Cardio Rate: regular rate Rhythm: regular rhythm Heart sounds: S1 normal heart sound present and S2 normal heart sound present GI Other: The abdomen is soft and nontender Skin Other: The skin is dry and unremarkable Neuro Other: The patient is awake and alert with a normal mental status. Cranial nerves 2-12 are intact. I do not appreciate any nystagmus. She has a supple neck. She moves her extremities symmetrically and normally. Finger-nose is normal. She seems grossly neurologically intact with a normal mental status and a nontoxic appearance. Cranial nerves: Yes Equal, round and reactive pupils present Extrem Other: There is no calf swelling or tenderness. No asymmetry. No peripheral edema. Medications Administered Discontinued Medications Generic Name Dose Route Start Last Admin Trade Name Jael PRN Reason Stop Dose Admin Diphenhydramine HCl 25 mg 10/30/24 07:44 10/30/24 09:01 Diphenhydramine Hcl 50 Mg/Ml Vial IVPUSH 10/30/24 07:45 25 mg ONCE ONE Administration Sodium Chloride 1,000 mls @ 999 mls/hr 10/30/24 07:45 10/30/24 09:00 Ns IV 10/30/24 08:45 999 mls/hr .Q1H1M JAMES Administration Ketorolac Tromethamine 15 mg 10/30/24 07:44 10/30/24 09:00 Ketorolac Tromethamine 15 Mg/Ml Vial IVPUSH 10/30/24 07:45 15 mg ONCE ONE Administration Metoclopramide HCl 10 mg 10/30/24 07:44 10/30/24 08:38 Metoclopramide Hcl 10 Mg/2 Ml Vial IVPUSH 10/30/24 07:45 10 mg ONCE ONE Administration Medical Decision Making Medical Decision Making [facility] Narrative: The patient is a 33-year-old female who presents with 2 days of symptoms that include dizziness that seem quite positional, some degree of a headache, as well as nausea and vomiting. Her neurological exam is normal. She looks mildly unwell. My overall impression is that this is probably a migraine phenomenon. She has a unremarkable labs. She was treated with IV metoclopramide, diphenhydramine, ketorolac, and IV fluids. She felt considerably better. I think she may be discharged to follow up with the regular doctor. Lab Data 10/30/24 06:05 10/30/24 06:05 Labs: Lab Results 10/30/24 Range/Units 06:05 WBC 6.6 (4.8-10.8) X10*3/uL RBC 4.95 (4.20-5.50) X10*6/uL Hgb 13.8 (12.0-16.0) g/dl Hct 42.0 (37.0-47.0) % MCV 84.8 (80.0-98.0) fL MCH 27.9 (27.0-33.0) pg MCHC 32.9 (31.0-35.0) g/dl RDW 14.9 (11.0-16.0) % Plt Count 265 D (160-400) X10*3/uL MPV 11.2 (9.4-12.3) fL Immature Gran % (Auto) 1.1 H (0.0-0.4) % Neut % (Auto) 63.0 (45-73) % Lymph % (Auto) 24.2 (20-40) % Flat[place] % (Auto) 7.9 (2-11) % Eos % (Auto) 3.0 (0-4) % Baso % (Auto) 0.8 (0-2) % Lymph # (Auto) 1.6 (1.2-4.9) X10*3/uL [place] # (Auto) 0.5 (0.1-1.2) X10*3/uL Eos # (Auto) 0.2 (0.0-0.4) X10*3/uL Baso # (Auto) 0.1 (0.0-0.2) X10*3/uL Abs Immat Gran (auto) 0.07 H (0.00-0.03) X10*3/uL Absolute Neuts (auto) 4.2 (2.0-8.3) x10*3/uL Absolute Nucleated RBC 0.000 (0.0-0.012) X10*3/uL Nucleated RBC % (auto) 0.0 (0.0-0.2) /100WBC Sodium 138 (135-145) mmol/L Potassium 3.9 (3.3-5.1) mmol/L Chloride 105 (96-108) mmol/L Carbon Dioxide 25 (22-29) mmol/L Anion Gap 12 (12-20) BUN 17 H (9-16) mg/dL Creatinine 0.91 (0.5-1.4) mg/dL Estim Creat Clear Calc 108.6 Estimated GFR > 60 Random Glucose 91 (60-115) mg/dL Calcium 9.2 (8.4-10.2) mg/dL Total Bilirubin 0.3 (0.0-1.0) mg/dL AST 20 (5-31) U/L ALT 42 H (0-31) U/L Alkaline Phosphatase 81 (39-117) U/L C-Reactive Protein 1.02 H (< or = 0.50) mg/dL Total Protein 7.6 (6.5-8.0) g/dL Albumin 4.5 (3.5-5.0) g/dL Lipase 23 (8-78) U/L Beta HCG, Quant < 2 mIU/mL Influenza Type A (PCR) NEGATIVE (Negative) Influenza Type B (PCR) NEGATIVE (Negative) RSV RNA Qual (PCR) NEGATIVE (Negative) SARS-CoV-2 RNA (RT-PCR) NEGATIVE (Negative) S. pyogenes GrpA CITLALI Negative (Negative) Discharge Plan Discharge Clinical Impression: Dizziness, Headache, Vomiting Patient Disposition: Home, Self-Care Additional Instructions: Your laboratory testing today was all very reassuring. It is possible your symptoms might represent some kind of migraine phenomenon. You received medications which typically help with a migraine. Please rest and take it easy today. Please plan on following up with your regular doctor to discuss this episode further. Return to the emergency room if you feel significantly worse. Prescriptions: No Action cefpodoxime 200 mg tablet 200 mg PO BID Qty: 16 0RF Rx Instructions: must administer with a meal/food ibuprofen 400 mg tablet 400 mg PO Q6H PRN (Reason: pain) Qty: 14 0RF acetaminophen 500 mg capsule 1,000 mg PO Q8H PRN (Reason: fever or pain) Qty: 20 0RF cyclobenzaprine 5 mg tablet 5 mg PO Q8H PRN (Reason: muscle pain) Qty: 7 0RF lidocaine [Lidoderm] 5 % adhesive patch,medicated 1 patch topical DAILY Qty: 15 0RF Rx Instructions: leave on most painful area for up to 12 hrs albuterol sulfate [Ventolin HFA] 90 mcg/actuation HFA aerosol inhaler 2 puff inhalation Q4-6H PRN (Reason: wheezing) Referrals: Yuliana Lin LEAD RIDER [Primary Care Provider, Family Practice] Print Language: Taiwanese
[2024-10-30 07:12] LABS: Influenza A PCR NEGATIVE (Negative); Influenza B PCR NEGATIVE (Negative); Resp Syncy Virus RNA Qual PCR NEGATIVE (Negative); SARS COV2 PCR INHOUSE NEGATIVE (Negative)
[2024-10-30 08:31] LABS: Alanine Aminotransferase 42 U/L (0-31); Albumin Level 4.5 g/dL (3.5-5.0); Alkaline Phosphatase 81 U/L (39-117); Anion Gap 12 (12-20); Aspartate Amino Transferase 20 U/L (5-31); Bilirubin Total 0.3 mg/dL (0.0-1.0); Blood Urea Nitrogen 17 mg/dL (9-16); Calcium 9.2 mg/dL (8.4-10.2); Carbon Dioxide 25 mmol/L (22-29); Chloride 105 mmol/L (96-108); Creatinine Clr Calc Pharmacy 108.6; Estimated Glomerular Filt Rate > 60; Glucose Random 91 mg/dL (60-115); Lipase 23 U/L (8-78); Potassium 3.9 mmol/L (3.3-5.1); Sodium 138 mmol/L (135-145); Total Protein 7.6 g/dL (6.5-8.0)
[2024-10-30 08:38] LABS: HCG Quantitative < 2 mIU/mL
[2024-10-30] MEDS: Metoclopramide HCl 10 MG/2 ML VIAL IVPUSH (08:38)
[2024-10-30] MEDS: 0.9 % Sodium Chloride 1,000 ML 999 ML IV (09:00)
[2024-10-30] MEDS: Ketorolac Tromethamine 15 MG/ML VIAL IVPUSH (09:00)
[2024-10-30] MEDS: diphenhydrAMINE HCL 50 MG/ML VIAL 25 MG IVPUSH (09:01)
[2024-10-30 09:32] LABS: C Reactive Protein 1.02 mg/dL (< or = 0.50)
== END 2024-10-30 10:13 | disposition home or self-care (01) ==
PROVIDERS: Emergency Medicine; Emergency Provider Emergency Medicine; PCP Nurse Practitioner Family
DX: R42 Dizziness and giddiness (principal); R51.9 Headache, unspecified; R11.2 Nausea with vomiting, unspecified; R50.9 Fever, unspecified; Z03.818 Encounter for observation for suspected exposure to other biological agents ruled out; J45.909 Unspecified asthma, uncomplicated; Z79.899 Other long term (current) drug therapy
CPT/HCPCS: 0241U; 36415; 80053; 83690; 84702; 85025; 86140; 87651; 93005; 96361; 96374; 96375; 99284; 99285; J1200; J1885; J2765

== ENCOUNTER → 2024-10-30 06:05 | Outpatient (BNV) | payer MEDICAID, SELFPAY | PROVIDERS: Emergency Provider Emergency Medicine; PCP Nurse Practitioner Family; Visit Provider Internal Medicine | DX: R94.31 Abnormal electrocardiogram [ECG] [EKG] (principal); R11.2 Nausea with vomiting, unspecified | CPT/HCPCS: 93010 ==

== ENCOUNTER 2024-12-29 16:09 | Outpatient (REF) | payer MEDICAID, SELFPAY ==
--- OUTSIDE RECORDS SUMMARY | 2024-12-29 15:30 | XMS_ITS | Encounter Summary ---
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 Name Role Phone Yuliana Lin NP Primary Care Provider [phone] Reason for Referral * Consultation (Routine) - Pending Review Specialty Diagnoses / Procedures Referred By Mark sheehan Referred To Contact Bariatrics Diagnoses Class 3 severe obesity due to excess calories with serious comorbidity and body mass index (BMI) of 40.0 to 44.9 in adult Yuliana Lin NP [address] [place] [address] Phone: tel: fax: Referral ID Status Reason Start Date Expiration Date Visits Requested Visits Authorized [id number] Pending Review Specialty Services Required 12/29/2024 12/29/2025 1 1 Encounter Details Date Type Department Care Team ([facility] st Contact Info) Description 12/29/2024 3:30 PM EDT Office Visit [facility] [address] [place], [place] [id number] Yuliana Lin NP [address] [place], [place] [id number] Class 3 severe obesity due to excess calories with serious comorbidity and body mass index (BMI) of 40.0 to 44.9 in adult (Primary Dx); Vaginal discharge Social History Tobacco Use Types Packs/Day Years Used Date Smoking Tobacco: Never Passive Smoke Exposure: Never Smokeless Tobacco: Never Tobacco Cessation:Counseling Given: Not Answered Comments:1-2 cigs per day x 3 months Alcohol Use Standard Drinks/Week Comments Never 0 (1 standard drink = 0.6 oz pur e alcohol) socially, Depression Answer Date Recorded Patient Health Questionnaire-9 Score 0 12/29/2024 Patient Health Questionnaire-9 Score 0 12/29/2024 Last PHQ-9: Questionnaire Data Not on file 0 12/29/2024 Housing Stability Answer Date Recorded What is [...] Answer Date Recorded Patient Health Questionnaire-2 Score 0 12/29/2024 Internet Access Answer Date Recorded Internet Access [...] Sign Reading Time Taken Comments Blood Pressure 128/80 12/29/2024 3:33 PM EDT Pulse 95 12/29/2024 3:33 PM EDT Temperature 36.1 C (97 F) 12/29/2024 3:33 PM EDT Respiratory Rate 17 12/29/2024 3:33 PM EDT Oxygen Saturation 98% 12/29/2024 3:33 PM EDT Inhaled Oxygen Concentration - - Weight 112 kg (246 lb 9.6 oz) 12/29/2024 3:33 PM EDT Height 167.6 cm (5' 6 ) 12/29/2024 3:33 PM EDT Body Mass Index 39.8 12/29/2024 3:33 PM EDT documented in this encounter Functional Status * Over the past 2 weeks, how often have you been bothered by any of the following problems? Question Answer Date of Assessment Author Patient Health Questionnaire -2 Score 0 12/29/2024 3:34 PM EDT Maria L Merino MA * Little interest or pleasure in doing things Answer Date of Assessment Author Not at all 12/29/2024 3:34 PM EDT Maria L Merino MA * Feeling down, depressed, or hopeless Answer Date of Assessment Author Not at all 12/29/2024 3:34 PM EDT Loretta Merino MA * Trouble falling or staying asleep, or sleeping too much Answer Date of Assessment Author Not at all 12/29/2024 3:34 PM EDT Loretta Merino MA * Feeling tired or having little energy Answer Date of Assessment Author Not at all 12/29/2024 3:34 PM EDT Loretta Merino MA * Poor appetite or overeating Answer Date of Assessment Author Not at all 12/29/2024 3:34 PM EDT Loretta Merino MA * Feeling bad about yourself - or that you are a failure or have let yourself or your family down Answer Date of Assessment Author Not at all 12/29/2024 3:34 PM Loretta León MA * Trouble concentrating on things, such as reading the newspaper or watching television Answer Date of Assessment Author Not at all 12/29/2024 3:34 PM EDT Loretta Merino MA * Moving or speaking so slowly that other people could have noticed? Or the opposite - being so fidgety or restless that you have been moving around a lot more than usual. Answer Date of Assessment Author Not at all 12/29/2024 3:34 PM Loretta León MA * Thoughts that you would be better off or hurting yourself in some way Answer Date of Assessment Author Not at all 12/29/2024 3:34 PM EDLoretta Cardona MA * Patient Health Questionnaire-9 Score Answer Date of Assessment Author 0 12/29/2024 3:34 PM EDT Loretta Merino MA * Over the last 2 weeks, how often have you been bothered by any of the following problems? Question Answer Date of Assessment Author Feeling nervous, anxious, or on edge 3 12/29/2024 3:36 PM EDT Maria L Merino MA Not being able to stop or co ntrol worrying 3 12/29/2024 3:36 PM EDT Maria L Merino MA Worrying too much about diff erent things 3 12/29/2024 3:36 PM EDT Maria L Merino MA Trouble relaxing 3 12/29/2024 3:36 PM EDT S Maria L lee MA Being so restless that it is hard to sit still 3 12/29/2024 3:36 PM EDT Maria L Merino MA Becoming easily annoyed or irritable 3 12/29/2024 3:36 PM EDT Maria L Merino MA Feeling afraid as if somethi ng awful might happen 3 12/29/2024 3:36 PM EDT Maria L Merino MA RORY-7 Total Score 21 12/29/2024 3:36 PM EDT Maria L Merino MA documented as of this encounter Plan of Treatment Scheduled Orders Name Type Priority Associated Diagnoses Orde r Schedule CBC auto differential Lab Routine Class 3 severe obesity due to excess calories with serious comorbidity and body mass index (BMI) of 40.0 to 44.9 in adult Vaginal discharge Expected: 12/29/2024 (Approximate), Expires: 12/29/2025 Comprehensive Metabolic Panel Lab Routine Class 3 severe obesity due to excess calories with serious comorbidity and body mass index (BMI) of 40.0 to 44.9 in adult Vaginal discharge Expected: 12/29/2024 (Approximate), Expires: 12/29/2025 Hemoglobin A1c Lab Routine Class 3 severe obesity due to excess calories with serious comorbidity and body mass index (BMI) of 40.0 to 44.9 in adult Vaginal discharge Expected: 12/29/2024 (Approximate), Expires: 12/29/2025 Bacterial Vaginosis Panel Microbiology Routine Vaginal discharge Ordered: 12/29/2024 Scheduled Referrals Name Type Priority Associated Diagnoses Orde r Schedule Referral to Weight Management Outpatient Referral Routine Class 3 severe obesity due to excess calories with serious comorbidity and body mass index (BMI) of 40.0 to 44.9 in adult Expected: 12/29/2024 (Approximate), Expires: 12/29/2025 documented as of this encounter Visit Diagnoses Diagnosis Class 3 severe obesity due to excess calories with serious comorbidity and body mass index (BMI) of 40.0 to 44.9 in adult- Primary Vaginal discharge Leukorrhea, not specified as infective documented in this encounter Additional Health Concerns Assessment Noted Time PHQ-9 Depression Total Score: 0 12/30/19 25 3:34 PM EDT documented as of this encounter Care Teams Inner Tube Tuber Machine Operator Relationship Specialty Start Date End Date Yuliana Lin NP [address] [place] [id number] PCP - General Family Medicine 03/24/24 documented as of this encounter
--- OUTSIDE RECORDS SUMMARY | 2024-12-30 14:20 | XMS_ITS | Clinical Summary ---
Demographics Address [address] [place] [address] Mobile Phone Email Address Preferred Language British; Castilian Marital Status Single Bahai Affiliation Unknown Race White Ethnic Group or Author Organization [facility] Address [address] [place] [address] Support Name Relationship Address Phone Sivakumar Hayward Personal Relationship [address] [place] [address] Vee Esparza Sister [address] [place] [address] Care Team Providers Care Insurance Processor Name Role Phone Dre Parrish PA-C Primary [...] mcg/actuation inhalerIndication s:Mild intermittent asthma without complication ([facility]) Inhale 2 Puffs into the lungs every [...] allergic rhinitis due to pollen Place 1 [place] in both nostrils once daily 16 g 1 3 Active ibuprofen 800 mg tabletIndications :Body aches Take 1 Tablet by mouth 3 (three) times daily as needed for pain 30 Tablet 3 Active Active Problems Problem Noted Date Diagnosed Date Anxiety disorder 07/10/2022 Moderate depressive episode 07/10/2022 Dysmenorrhea 12/07/2021 Menorrhagia with regular cycle 12/07/2021 Asthma ([facility]) 11/02/2020 Acanthosis nigricans 01/21/2019 Family planning counseling 01/21/2019 Obesity (BMI 30.0-34.9) 01/21/2019 Resolved Problems Problem Noted Date Diagnosed Date Resolved Date Encounter for supervision of normal in first trimester ([facility]) 12/01/2019 04/25/2021 Overview (11/02/2020): Discuss HGB electrophoresis at [place] [facility] score: 1 [12/01/2019] . Group PN care? * Rh * GC/Chlam * PAP Tdap * Flu * Hgb * GTT * 28 wk Repeat RPR * GBS * PPBC * screening * Immunizations Immunization Administration Dates Next Due INFLUENZA, SEASONAL, INJECTABLE 12/01/2020,05/06,03/03/2020 MMR (MMR II/Priorix) 07/23/2020,07/23/2020,07/22 Moderna COVID-19 Vaccine, re d cap blue label, 12+ Primary Series 09/12/2020,08/15/2020 PNEUMOCOCCAL POLYSACCHARIDE PPV23 (Pneumovax 23) 05/26/2021 TDAP 12/23/2020,05/10/2020 Social History Tobacco Use [...] 86 01/30/2023 4:18 PM EDT Temperature 37.1 C (98.7 F) 01/30/2023 4:18 PM EDT Respiratory Rate 16 01/30/2023 4:18 PM EDT [...] - 19 + 3-dose series) 2008 Annual Wellness (Adult): Indicated (All Coverage) 12/23/2021 12/23/2020 Tobacco Screening 12/23/2021 12/23/2020 Imm-Pneumococcal (2 of 2 - PCV) 05/26/2022 Depression Monitoring 10/10/2022 07/10/2022 , 12/07/2021, 12/23/2020 Pap Smear 03/03/2023 03/03/2020 (Maryam cisneros by Outside Provider), 03/03/2020 Dental BW 05/26/2023 05/24/2022 Dental Examination 05/26/2023 05/24/2022 Dental Perio Charting 05/26/2023 05/24/2022 Dental Prophy 05/26/2023 05/24/2022 Anxiety Screening 07/11/2023 07/10/2022 Relationship Safety Screening/Counseling 07/11/2023 07/10/2022, 12/07/2021, 04/25/2021 [id number] ( season) 2024 04/12/2021, 09/12/2020, 08/15/2020 Alcohol and Drug Screen 05/06/2024 12/07/2021, 12/23 Imm-Influenza (#1) 2025 12/01/2020, 0 05/06/2020, 03/03/2020 Cervical Cancer Screening 03/03/2025 Pap + HPV 03/03/2025 03/03/2020 Diabetes Screening 07/31/2025 07/31/2022, 0 12/30/2020, 12/30/2020, Additional history exists Hypertension Screening (#1) 01/29/2026 Imm-DTaP/Tdap/Td (3 - Td or Tdap) 12/23/2030 021, 05/10/2020 HIV Screening Completed 12/30/2020 Hepatitis C Screening Completed 12/30/2020 Cervical Ablation/Cold-Knife Conization Discontinued Cervical Cryotherapy Discontinued Colposcopy Discontinued Endometrial Biopsy Discontinued Excision/Leep Discontinued HPV Genotyping Discontinued Vaginal Pap Discontinued Vulvoscopy Discontinued Procedures Procedure Name Priority Date/Time Associated Diagnosis Comments COMPREHENSIVE METABOLIC PANEL Routine 07/31/2022 4:06 PM EDT Iron deficiency Dysmenorrhea COMP PERIODONTAL EVALUATION - NEW/EST PATIENT Routine [...] Recently Relevant to Health Maintenance Results * COMPREHENSIVE METABOLIC PANEL (07/31/2022 4:06 PM EDT) GLUCOSE 99 65 - 99 mg/dL [facility] Comment: Fasting reference interval UREA NITROGEN (BUN) 21 7 - 25 mg/dL [facility] CREATININE (blood) 0.76 0.50 - 0.97 mg/dL [facility] EGFR 107 > OR = 60 mL/min/1 .73m2 [facility] Comment: The eGFR is based on the CKD-EPI 2020 equation. To calculate the new eGFR from a previous Creatinine or Cystatin C result, go to https://www.kidney.org/professionals/ kdoqi/gfr%5Fcalculator BUN/CREATININE RATIO NOT APPLICABLE 6 - 22 [facility] SODIUM 140 135 - 146 mmol/L [facility] POTASSIUM 4.4 3.5 - 5.3 mmol/L [facility] CHLORIDE 104 98 - 110 mmol/L [facility] CARBON DIOXIDE 29 20 - 32 mmol/L [facility] CALCIUM 9.8 8.6 - 10.2 mg/dL [facility] PROTEIN, TOTAL 7.1 6.1 - 8.1 g/dL [facility] ALBUMIN 4.5 3.6 - 5.1 g/dL [facility] GLOBULIN 2.6 1.9 - 3.7 g/dL (calc) [facility] ALBUMIN/GLOBUL IN RATIO 1.7 1.0 - 2.5 (calc) [facility] BILIRUBIN, TOTAL 0.2 0.2 - 1.2 mg/dL [facility] ALKALINE PHOSPHATASE 71 31 - 125 U/L [facility] AST 13 10 - 30 U/L [facility] ALT 18 6 - 29 U/L [facility] Blood Blood / Unknown 07/31/2022 4 :06 PM EDT 07/31/2022 4:07 PM EDT Leticia Banks HAND [facility] - BLOOD DRAW Final Resul t Performing Organization Address City/[facility]/ZIP Co de Phone Number [facility] [address] [address], [facility] [address] [address] * HEPATITIS C AB W/RFLX HCV RNA, QT, RT PCR (12/30/2020 11:56 AM EDT) HEPATITIS C ANTIBODY NON-REACT MARISABEL NON-REACT MARISABEL [facility] SIGNAL TO CUT-OFF 0.01 <1.00 [employer] Comment: HCV antibody was non-reactive. There is no laboratory evidence of HCV infection. In most cases, no further action is required. However, if recent HCV exposure is suspected, a test for HCV RNA (test code 56906) is suggested. For additional information please refer to http://education.TapClicks/faq/YDD19y6 (This link is being provided for informational/ educational purposes only.) Blood Blood / Unknown 12/30/2020 1 1:56 AM EDT 12/30/2020 11:57 AM EDT Amparo Barber ADHESIVE PRIMER-C LAB - BLOOD DRAW Edited Resu lt - Final Performing Organization Address City/[facility]/ZIP Co de Phone Number [facility] [address] [address], [facility] [address],[facility] [place] [address] * HIV 1/2 AG & AB W/RFLX (4TH GEN) (12/30/2020 11:56 AM EDT) HIV AG/AB, 4TH GEN NON-REAC TIVE NON-REAC TIVE [facility] Comment: HIV-1 antigen and HIV-1/HIV-2 antibodies were not detected. There is no laboratory evidence of HIV infection. PLEASE NOTE: This information has been disclosed to you from records whose confidentiality may be protected by state law. If your state requires such protection, then the state law prohibits you from making any further disclosure of the information without the specific written consent of the person to whom it pertains, or as otherwise permitted by law. A general authorization for the release of medical or other information is NOT sufficient for this purpose. For additional information please refer to http://education.TapClicks/faq/DYK882 (This link is being provided for informational/ educational purposes only.) The performance of this assay has not been clinically validated in patients less than 2 years old. Blood Blood / Unknown 12/30/2020 1 1:56 AM EDT 12/30/2020 11:57 AM EDT Amparo BUCKLEY-C LAB - BLOOD DRAW Edited Resu lt - Final [facility] [address] [address], [facility] [address] [address] * PAP W/ HPV (03/03/2020 3:00 AM EDT) 03/03/2020 3:00 AM EDT Amparo GLEZP-C LAB - PATHOLOGY AND CYTOLOGY AMBULATORY Final Result from Last 3 Months or Most Recently Relevant to Health Maintenance Insurance [place] [address] [employer] Care Teams Insurance Processor Relationship Specialty Start Date End Date Dre Parrish PA-C [address] [place] [address] PCP - General FAMILY MEDICINE, [place] 04/04/23
--- OUTSIDE RECORDS SUMMARY | 2024-12-30 14:20 | XMS_ITS | Clinical Summary ---
Author Organization [facility] Address [address] [address] Phone Care Team Providers Care Passenger Agent Name Role Phone Pcp, Unknown Primary Care Provider Unavailabl e Allergies No known active allergies Medications vit calc,iron,folic ( VITAMIN ORAL) Take by mouth. Active Active Problems Problem Noted Date Diagnosed Date Encounter for supervision of normal in first trimester 12/01/2019 Overview (12/01/2019): Discuss HGB electrophoresis at [place] [facility] score: 1 [12/01/2019] . Group PN care? * Rh * GC/Chlam * PAP Tdap * Flu * Hgb * GTT * 28 wk Repeat RPR * GBS * PPBC * screening * Family planning counseling 01/21/2019 Acanthosis nigricans 01/21/2019 Obesity (BMI 30.0-34.9) 01/21/2019 Family History Medical History Relation Comments Hypertension Father Lupus Maternal Aunt Breast lump zaida jamel - ? cancer Cervical cancer Mother Uterine cancer Mother Heart disease Paternal Grandmother Relation Status Comments Father Alive Maternal Aunt Alive Mother (Age 42) Paternal Grandmother Social History Tobacco Use Types Packs/Day Years Used Date Smoking Tobacco: Former Cigarettes Q uit: 01/2019 Smokeless Tobacco: Never Alcohol Use Standard Drinks/Week Comments Yes 8 (1 standard drink = 0.6 oz pure alcohol) Socially 6-8 drinks per week.none since Education Answer Date Recorded Are you interested in more education? Not on randy e 08/31/2022 Are you concerned about learning? Not on file 08/31/2022 No 08/31/2022 No 08/31/2022 Digital Access Answer Date Recorded No 09/29/2022 No 09/29/2022 No 09/29/2022 Reliable internet access at home? Not on file 09/29/2022 Device with a working camera? 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 Not on file Not on randy e Not on file Last Filed Vital Signs Vital Sign Reading Time Taken Comments Blood Pressure 120/70 01/28/2019 9:57 AM EDT Pulse 65 01/21/2019 1:47 PM EDT Temperature - - Respiratory Rate - - Oxygen Saturation 99% 01/21/2019 1:47 PM EDT Inhaled Oxygen Concentration - - Weight 97.1 kg (214 lb) 01/28/2019 9:57 AM EDT Height 167.6 cm (5' 6 ) 01/28/2019 9:57 AM EDT Body Mass Index 34.54 01/28/2019 9:57 AM EDT Plan of Treatment Health Maintenance Due Date Last Done Comments Adult Td,Tdap Booster 1989 SMOKING Hx and SMOKELESS TOBACCO SCREENING 2002 HEPATITIS C SCREENING 11/30/2007 HIV ONE-TIME SCREENING (18-6 5 YEARS) 11/30/2007 PAP SMEAR 2010 DEPRESSION SCREENING 01/22/2020 01/21/2019 COVID-19 VACCINE (3 - 2023-2 5 season) 2024 09/12/2020, 08/15/2020 INFLUENZA VACCINE (#1) 2024 HEPATITIS A VACCINES Aged Out No long er eligible based on patient's age to complete this topic HIB VACCINES Aged Out No longer eligi ble based on patient's age to complete this topic MENINGOCOCCAL VACCINES (ACWY) Aged Out No longer eligible based on patient's age to complete this topic MENINGOCOCCAL VACCINES (B) Aged Out N o longer eligible based on patient's age to complete this topic PNEUMOCOCCAL VACCINES (0-49 years) Aged Out No longer eligible b ased on patient's age to complete this topic Medical Devices Not on file Insurance CROSS OUT OF STATE PPO [address] [place] [address] BLUE CROSS OUT OF STATE PPO BLUE CROSS OUT OF STATE PPO [address] [id number] BLUE CROSS OUT OF STATE PPO [address] [place] [id number] BLUE CROSS OUT OF STATE PPO [address] [place] [id number] BLUE CROSS OUT OF STATE PPO BLUE CROSS OUT OF STATE PPO BLUE CROSS OUT OF STATE PPO [address] [place] [phone] BLUE CROSS OUT OF STATE PPO Care Teams Passenger Agent Relationship Specialty Start Date End Date Pcp, Unknown PCP - General 09/04/22 Additional Source Comments The information contained in this document represents components of the legal health record. It is not the complete legal health record.[facility]
--- OUTSIDE RECORDS SUMMARY | 2024-12-30 14:20 | XMS_ITS | Clinical Summary ---
Author Organization [facility] it Address [address] [place] [address] Care Team Providers Care Pharmaceutical Detailer Name Role Phone Unavailable Primary Care Provider [...] Vaccine ( - 2023-2 5 season) 2024 Depression Screening 05/06/2024 Influenza Vaccine (#1) 2025 HIB Vaccines Aged Out No longer [...] 5 Years) and At-Risk Patients (6 to 49 Years) Aged Out No longer eligible b ased on patient's age to complete this topic RSV Immunization Patients Un mino 20 months Aged Out No longer eligible b ased on patient's age to complete this topic Varicella Vaccines Aged Out No longer eligible based on patient's age to complete this topic
--- OUTSIDE RECORDS SUMMARY | 2024-12-30 14:20 | XMS_ITS | Encounter Summary ---
Author Organization [employer] Address [address] [place] [address] Care Team Providers Care Armor Reconnaissance Vehicle Crewman Name Role Phone Yuliana Lin CRISTOPHER Primary Care Provider [phone] Encounter Details Date Type Department Care Team (Latest Contact Info) Description 12/29/2024 Travel Social History Tobacco Use Types Packs/Day [...] AM EST documented as of this encounter Functional Status * Over the [...] PM EDT Loretta Merino MA * Feeling down, depressed, or [...] Author Not at all 12/29/2024 3:34 PM SUKHJINDERT Loretta Merino MA * Poor appetite or overeating Answer Date of Assessment Author Not at all 12/29/2024 3:34 PM EDT Loretta Merino MA * Feeling bad about yourself - or that you are a failure or have let yourself or your family down Answer Date of Assessment Author Not at all 12/29/2024 3:34 PM EDLoretta Cardona MA * Trouble concentrating on things, such as reading the newspaper or watching television Answer Date of Assessment Author Not at all 12/29/2024 3:34 PM Loretta León MA * Moving or speaking so slowly that other people could have noticed? Or the opposite - being so fidgety or restless that you have been moving around a lot more than usual. Answer Date of Assessment Author Not at all 12/29/2024 3:34 PM EDT Loretta Merino MA * Thoughts that you would be better off or hurting yourself in some way Answer Date of Assessment Author Not at all 12/29/2024 3:34 PM EDT Loretta Merino MA * Patient Health Questionnaire-9 Score Answer [...] Trouble relaxing 3 12/29/2024 3:36 PM EDT Maria L Weeks MA Being so restless that it is [...] as of this encounter Plan of Treatment Not on file documented as of this encounter Visit Diagnoses Not on filedocumented in this encounter Additional Health Concerns Assessment Noted Time PHQ-9 Depression Total Score: 0 12/30/19 3:34 PM EDT documented as of this encounter Care Teams Armor Reconnaissance Vehicle Crewman Relationship Specialty Start Date End Date Yuliana Lin NP [address] [place] [address] PCP - General Family Medicine 03/24/24 documented as of this encounter
--- OUTSIDE RECORDS SUMMARY | 2024-12-30 14:21 | XMS_ITS | Encounter Summary ---
Author Organization [employer] Address [address] [place] [address] 7[address] [place] [address] Care Team Providers Care Loom Setter Fourdrinier Name Role Phone Keiry West Primary Care Provider [phone] Yuliana Lin NP Primary Care Provider [phone] Encounter Details Date Type Department Care Team (Latest Contact Info) Description 09/03/2018 Abstract [facility] CONVERSIONS Dental, Provider, DDS Social History Tobacco [...] on filedocumented in this encounter Care Teams Loom Setter Fourdrinier Relationship Specialty Start Date End Date Keiry West FNP [address] [place] [address] PCP - General Family Medicine 07/19/23 03/02/24 Yuliana Lin NP [address] [place] [address] PCP - General Family Medicine 03/24/24 documented as of this encounter
--- OUTSIDE RECORDS SUMMARY | 2024-12-30 14:21 | XMS_ITS | Encounter Summary ---
Author Organization [employer] Address [address] [facility] 7t [place] [address] Care Team Providers Care Plodding Machine Operator Name Role Phone Keiry WestP Primary Care Provider [phone] Yuliana Lin NP Primary Care Provider [phone] Reason for Visit * Reason Onset Date Comments Med Refill 11/24/2023 Encounter Details Date Type Department Care Team ([facility] st Contact Info) Description 11/24/2023 Refill [facility] [address] [place] [address] Keiry West FNP [address] [place] [address] Social History Tobacco Use Types Packs/Day Years [...] documented as of this encounter Care Teams Plodding Machine Operator Relationship Specialty Start Date End Date Keiry West FNP [address] [place] [address] PCP - General Family Medicine 07/19/23 03/02/24 Yuliana Lin NP [address] [place] [address] PCP - General Family Medicine 03/24/24 documented as of this encounter
--- OUTSIDE RECORDS SUMMARY | 2024-12-30 14:21 | XMS_ITS | Encounter Summary ---
Author Organization [employer] Address [address] [place] [address] Care Team Providers Care Repair Specialist Name Role Phone Yuliana Lin CRISTOPHER Primary Care Provider [phone] Encounter Details Date Type Department Care Team (Late st Contact Info) Description 06/10/2024 Orders Only [facility] [address] [place] [address] Provider, MD Liban Social History Tobacco Use [...] is your housing situation today? I have pavelsafia hercules 05/22/[address] you [...] the past 12 months, has t he [employer], gas, oil or water company threatened to [...] on file documented as of this encounter Procedures Procedure [...] documented as of this encounter Care Teams Repair Specialist Relationship Specialty Start Date End Date Yuliana Lin NP [address] [place] [address] PCP - General Family Medicine 03/24/24 documented as of this encounter
--- OUTSIDE RECORDS SUMMARY | 2024-12-30 14:21 | XMS_ITS | Clinical Summary ---
Author Organization [employer] Address [address] [facility] 7t [place] [address] Care Team Providers Care Associate Marketing Manager Name Role Phone Yuliana Lin CRISTOPHER Primary Care Provider [phone] Allergies Active Allergy Reactions Criticality Noted Date Comments Tramadol Unknown 11/02/2020 Medications budesonide (Pulmicort) 180 MCG/ACT inhaler Inhale 1 puff in the morning and at bedtime. Rinse mouth with water after use to reduce aftertaste and incidence of candidiasis. Do not swallow. 3 each 08/07/19 24 Active acetaminophen (Tylenol) 500 MG tablet Take 2 tablets (1,000 mg) by mouth every 6 (six) hours if needed for moderate pain or fever for up to 25 doses. 40 tablet 05/20/19 25 Active albuterol 108 (90 Base) MCG/ACT inhaler Inhale 2 puffs every 4 (four) hours if needed for wheezing or shortness of breath. 18 g 3 05/20/19 25 Active Spacer/Aero-Hol ding Chambers (OptiChamber Radha) misc 1 each every 4 (four) hours if needed (asthma). 1 each 05/20/19 25 Active ibuprofen 400 MG tablet Take 1 tablet (400 mg) by mouth every 6 (six) hours if needed for moderate pain or fever for up to 30 doses. 30 tablet 05/20/19 25 Active fluticasone (Flonase Allergy Relief) 50 MCG/ACT nasal spray Administer 1 spray into each nostril Once per day. Shake gently. Before first use, prime pump. After use, clean tip and replace cap. 16 g 1 05/20/19 25 026 Active loratadine (Claritin) 10 MG tablet Take 1 tablet (10 mg) by mouth Once per day. 30 tablet 3 05/20/19 25 026 Active predniSONE (Deltasone) 20 MG tabletIndicatio ns:Mild asthma exacerbation 2 tabs po daily for 5 days 10 tablet 07/10/19 25 Active cromolyn (Nasachrom) 5.2 MG/ACT nasal sprayIndication s:Mild asthma exacerbation Administer 1 spray into each nostril 4 times daily. 26 mL 12 07/10/19 25 026 Active ketoconazole (NIZOral) 2 % shampooIndicati ons:Seborrheic dermatitis Apply topically 2 (two) times a week. 240 mL 1 09/04/19 25 Active Tirzepatide-Rex ght Management (Zepbound) 10 MG/0.5ML solution auto-injector Inject 0.5 mL (10 mg) under the skin every 7 (seven) days. 2 mL 12/23/19 25 Active fluconazole (Diflucan) 150 MG tablet Take 1 tablet (150 mg) by mouth 1 (one) time per week for 14 days. 2 tablet 12/30/19 25 025 Active Tirzepatide-Rex ght Management (Zepbound) 10 MG/0.5ML solution auto-injector Inject 0.5 mL (10 mg) under the skin every 7 (seven) days. 2 mL 10/14/19 25 025 Discontinued(R eorder (will not trigger notification to Pharmacy)) Active Problems Problem Noted Date Diagnosed Date Class 3 severe obesity due t o excess calories with serious comorbidity and body mass index (BMI) of 40.0 to 44.9 in adult 12/29/2024 Vaginal discharge 12/29/2024 Class 3 severe obesity due t o excess calories without serious comorbidity in adult 09/01/2024 Assessment & Plan (09/01/2024 12:02 PM EDT): Benefit and wt loss from zepbound no side efffects, continue Elevated blood pressure reading 08/03/2024 Assessment & Plan (08/03/2024 6:55 PM EDT): Hx at goal, monitor Follow up in 4 weeks Coccyx pain 08/03/2024 Assessment & Plan (09/01/2024 12:02 PM EDT): Pain s/p fall, Will facilitate pillow as painful to sit and bear weight on coccyx Assessment & Plan (08/03/2024 6:55 PM EDT): S/p fall, will x-ray Pt has crutches will send pillow for seating PCOS (polycystic ovarian syndrome) 07/31/2024 Uses Zambian as primary spoken language 08/01/19 25 Asthma [...] spray Morbid obesity 06/06/2024 Assessment & Plan (08/03/2024 6:54 PM EDT): Pt pleased with gradual wt loss from zepbound, tolerating, will increase dose to 7.5 mg Assessment & Plan (06/06/2024 11:44 AM EST): Continue zepbound, dose titrated q 4 weeks Lifestyle and nutrition recommendations reviewed FH: malignant neoplasm of ovary 06/06/2024 Assessment & Plan (06/06/2024 11:44 AM EST): In care with [facility] specialty finishing utility person, pt recently had imaging and labs Pap also managed via specialty finishing utility person Chronic bilateral thoracic back pain 06/05/2024 Assessment [...] also STIs Will obtain pelvic US from [facility] and VENEREAL DISEASE INVESTIGATOR notes, she needs to fu with PCP [...] 12/01/2019 Overview (09/13/2023): Discuss HGB electrophoresis at [facility] OB-CMI score: 1 [12/01/2019] . Group [...] Encounters Date Type Department Care Team Description 12/29/2024 3:30 PM EDT Office Visit [facility] [address] [place] [phone] Yuliana Lin NP Class 3 severe obesity due to excess calories with serious comorbidity and body mass index (BMI) of 40.0 to 44.9 in adult (Primary Dx); Vaginal discharge 12/29/2024 Travel 12/21/2024 Refill [facility] [address] [place] [phone] Yuliana Lin NP 10/20/2024 Telephone [facility] [address] [place] [phone] Yuliana Lin NP Prior Authorization 10/15/2024 Orders Only [facility] [address] [place] [phone] Sabiha Michael MD 10/14/2024 3:00 PM EDT Office Visit [facility] [address] [place] [phone] Sabiha Michael MD Acute UTI (Primary Dx) 10/13/2024 Telephone [facility] [address] [place] [phone] Yuliana Lin NP Medication Question 10/12/2024 Refill [facility] [address] [place] [phone] Yuliana Lin NP Morbid obesity ([facility]) from Last 3 Months Immunizations Immunization Administration Dates Next Due Hep B, adult [...] Mass Index 39.8 12/29/2024 3:33 PM EDT Plan of Treatment Health Maintenance Due Date Last Done Comments Family Planning (PISQ) 2004 HPV Vaccines (1 - 3-dose series) 2004 Pneumococcal Vaccine: Pediatrics (0 to 5 Years) and At-Risk Patients (6 to 49) Years (2 of 2 - PCV) 05/26/2022 05/26/2021 Hepatitis B Vaccines (2 of 3 - 19+ 3-dose series) 08/16/2023 07/19/2023 COVID-19 Vaccine ( season) 2024 04/12/2021, 09/12/2020, 08/15/2020 Influenza Vaccine (#1) 2025 , 05/06/2020, 03/03/2020, Additional history exists SDOH Screening 05/22/2025 05/22/2024 Alcohol/Substance Use Screening 06/05/2025 06/05/2024 Disability Screening 08/03/2025 08/03/2024 Depression Screening 12/29/2025 12/29/2024, 12/30/19 Tobacco Screening 12/29/2025 12/29/2024 Lipid Panel 07/18/2028 07/19/2023, 06/03/2023 Cervical Cancer Screening 08/13/2028 HPV/Cotest 08/13/2028 Pap Smear 08/13/2028 08/14/2023 DTaP/Tdap/Td Vaccines (3 - Td or Tdap) 12/23/2030 12/23/2020, 05/10/2020 Zoster Vaccines (1 of 2) 11/30/2039 RSV Patients and Patients Aged 60 years or older (1 - 1-dose 75+ series) 2064 HIV Screening Completed 12/30/2020, 12/30/2020 Hepatitis C Screening Completed 08/07/2023 HIB [...] Procedure Name Priority Date/Time Associated Diagnosis Comments CULTURE, URINE, ROUTINE Routine 10/15/2024 12:00 AM EDT URINALYSIS, COMPLETE, WITH REFLEX TO CULTURE Routine 10/14/2024 3:25 PM EDT Acute UTI POCT URINALYSIS DIPSTICK Routine 10/14/2024 3:20 PM EDT Acute UTI POCT INFLUENZA B (ID NOW RAPID MOLECULAR) Routine 10/14/2024 3:20 PM EDT Acute UTI POCT INFLUENZA A (ID NOW RAPID MOLECULAR) Routine 10/14/2024 3:20 PM EDT Acute UTI POCT RAPID STREP A Routine 10/14/2024 3: 20 PM EDT Acute UTI POCT RAPID COVID ANTIGEN Routine 10/14/2024 3:20 PM EDT Acute UTI HM PAP/HPV Routine 08/14/2023 11:27 AM EDT HEPATITIS PANEL, GENERAL Routine 08/07/2023 12:12 PM EDT Nausea and vomiting, unspecified vomiting type LIPID PANEL, STANDARD Routine 07/19/2023 10:10 AM EDT Class 3 severe obesity due to excess calories without serious comorbidity in adult, unspecified BMI (CMS/HCC) from Last 3 Months or Most Recently Relevant to Health Maintenance Results * Culture, Urine, Routine (10/15/2024 12:00 AM EDT) Urine Urine specimen obtained by clean catch procedure / Unknown 10/15/2024 10/15/2024 Comment:UACC Narrative [facility] - 10/18/2024 12:15 PM EDT Urine Culture Report Result Urine Culture > 100,000 cfu/ml Urine Culture Mixed bacterial betina characteristic of Urine Culture urogenital contamination. Strep agalactiae (Grp B) Quant 50,000 to 100,000 cfu/mL Susc N/A Susceptibility not routinely performed on this isolate. Specimen Source: Urine clean catch us Sabiha Michael MD LAB MICROBIOLOGY - GENERAL ORDERABLES Final Result [facility] [address] [place] [phone] * (ABNORMAL) Urinalysis, Complete, with Reflex to Culture (10/14/2024 3:25 PM EDT) Color Urine Yellow [facility] Appearance Urine Turbid [facility] PH 5.5 5.0 - 9.0 [facility] Glucose Urine UA Negative Negative mg/dL [facility] Urine Blood Large (3+)(A) Negative [facility] Specific [place] - Urine 1.025 1.005 - 1.025 [facility] Urine Protein Trace Neg-Trace mg/dL [facility] Urine Ketones Negative Negative mg/dL [facility] Nitrite Urine Positive(A) Negative [facility] Leukocyte Esterase Urine Large (3+)(A) Negative [facility] RBC Urine 3-5(A) 0 - 2 /HPF [facility] Urine WBC 11-20 0 - 5 /HPF [facility] Urine Squamous Epithelial Cell 3-5 0 - 2 /HPF [facility] CALCIUM OXALATE CRYSTAL, UR Present [facility] Urine Bacteria 4+ None Seen [facility] Hyaline Casts, Urine 0-2 0 - 2 /LPF [facility] Urine 10/14/2024 3:25 PM EDT 10/15/2024 11:15 AM EDT Narrative [facility] - 10/15/2024 12:11 PM EDT Urine, Clean Catch Sabiha Michael MD LAB URINE ORDERABLES Final Result Performing Organization Address [facility]/ZIP Co de Phone Number [facility] [address] [place] [phone] * Influenza B (ID NOW Rapid Molecular) (10/14/2024 3:20 PM EDT) [facility] Influenza B Negative Negative, Indeterminate [facility] Swab 10/14/2024 3:20 PM EDT Sabiha Michael MD POINT OF CARE TEST ENTER/E DIT ORDERABLES Final Result Performing Organization Address [facility] Co de Phone Number [facility] [address] [place] [phone] * Influenza A (ID NOW Rapid Molecular) (10/14/2024 3:20 PM EDT) [facility] Influenza A Negative Negative, Indeterminate [facility] Swab 10/14/2024 3:20 PM EDT Sabiha Michael MD POINT OF CARE TEST ENTER/E DIT ORDERABLES Final Result Performing Organization Address [facility] Co de Phone Number [facility] [address] [place] [address] [phone] * POCT Rapid COVID Ag (10/14/2024 3:20 PM EDT) Pathologist [facility] Rapid COVID Ag Negative [facility] Swab 10/14/2024 3:20 PM EDT Sabiha Michael MD POINT OF CARE TEST ENTER/E DIT ORDERABLES Final Result Performing Organization Address City/[facility]/ZIP Co de Phone Number [facility] [address] [place] [phone] * POCT rapid strep A manually resulted (10/14/2024 3:20 PM EDT) Rapid Strep A Screen Negative Negative, None Detected [facility] Swab 10/14/2024 3:20 PM EDT Sabiha Michael MD POINT OF CARE TEST ENTER/E DIT ORDERABLES Final Result Performing Organization Address [facility] Co de Phone Number [facility] [address] [place] [address] [phone] * (ABNORMAL) POCT urinalysis dipstick manually resulted (10/14/2024 3:20 PM EDT) Color, UA Yellow Clarity, UA Clear Glucose, UA Negative Bilirubin, UA Negative Ketones, UA Negative Spec Grav, UA 1.020 Blood, UA Positive(A) Negative, None Detected Comment:moderate pH, UA 6.0 Protein, UA Trace Urobilinogen, UA 0.2 Leukocytes, UA Few 15(A) Negative, Rare, Trace Comment:small Nitrite, UA Positive(A) Negative, None Detected Urine 10/14/2024 3:20 PM EDT Sabiha Michael MD POINT OF CARE TEST ENTER/E DIT ORDERABLES Final Result * HM PAP/HPV (08/14/2023 11:27 AM EDT) Historical Provider HEALTH MAINTENANCE Final Result * Hepatitis Panel, General (08/07/2023 12:12 PM EDT) Hepatitis A IgM Nonreactive Nonreactive [facility] Comment:IgM antibodies to MARTINEZ V not detected; does not exclude earlyacute or recovered HAV infection. ~Hepatitis B Surface Antibody REACTIVE Nonreactive [facility] Comment:REACTIVE: > 11.99 mI U/mL Hepatitis B Core Antibody Nonreactive Nonreactive [facility] Hepatitis C Antibody Nonreactive Nonreactive [facility] Comment:Antibodies to HCV no t detected; does not exclude early acuteHCV infection. Hepatitis B Surface Ag Negative Negative [facility] Blood 08/07/2023 12:1 2 PM EDT 08/07/2023 1:20 PM EDT us Angie Hager TRADE SALES ASSISTANT LAB BLOOD ORDERABLES Final Res ult [facility] [address] [place] [phone] * (ABNORMAL) Lipid Panel, Standard (07/19/2023 10:10 AM EDT) Triglycerides 77 <150 mg/dL [facility] Comment:Desirable Triglyceri de: less than 150 mg/dLBorderline High Triglyceride 150-199 mg/dLHigh Triglyceride: 200-499 mg/dLVery High Triglyceride: greater than or equal to 5OO mg/dL Cholesterol 222(H) <200 mg/dL [facility] Comment:Desirable Cholestero l: less than 200 mg/dLBorderline High Cholesterol: 200-239 mg/dLHigh Cholesterol: greater than 239 mg/dL LDL Cholesterol Calculated 144(H) <100 mg/dL [facility] Comment:Desirable LDL: less than 100 mg/dLNear Optimal/Above Optimal LDL: 110- 129 mg/dLBorderline High LDL: 130-159 mg/dLHigh LDL: 160-189 mg/dLVery High LDL: greater than or equal to 190 mg/dL HDL Cholesterol 63 >40 mg/dL [facility] Comment:Desirable HDL: great er than 40 mg/dL Note: This HDL assay may give artificially low results in patients with liver disease. Blood Venous blood specimen / Unknown 07/19/2023 10:10 AM EDT 07/19/2023 11:30 AM EDT us Keiry West TRADE SALES ASSISTANT LAB BLOOD ORDERABLES Final Resu lt [facility] [address] [place] [phone] from Last 3 Months or Most Recently Relevant to Health Maintenance Insurance [address] [place] [phone] [facility] [address] [place] [phone] [place] [address] [phone] [place] [phone] Care Teams Associate Marketing Manager Relationship Specialty Start Date End Date Yuliana Lin NP [address] [place] [address] PCP - General Family Medicine 03/24/24
--- OUTSIDE RECORDS SUMMARY | 2024-12-30 14:21 | XMS_ITS | Encounter Summary ---
Author Organization [employer] Address [address] [facility] 7t [place] [address] Care Team Providers Care Tomahawk Weapon System Operator Name Role Phone Yuliana Lin NP Primary Care Provider [phone] Reason for Visit * Reason Comments Med Refill Encounter Details Date Type Department Care Team ([facility] Contact Info) Description 05/05/2024 Refill [facility] [address] [place] [address] Yuliana Lin NP [address] [place] [address] Social History Tobacco Use Types Packs/Day Years [...] documented as of this encounter Care Teams Tom[place]awk Weapon System Operator Relationship Specialty Start Date End Date Yuliana Lin NP [address] [place] [phone] PCP - General Family Medicine 03/24/24 documented as of this encounter
--- OUTSIDE RECORDS SUMMARY | 2024-12-30 14:21 | XMS_ITS | Encounter Summary ---
Author Organization [employer] Address [address] [facility] 7t [place] [address] Care Team Providers Care Carton Forming Machine Operator Name Role Phone Keiry WestP Primary Care Provider [phone] Yuliana Lin NP Primary Care Provider [phone] Reason for Visit * Reason Onset Date Comments Medication Question 03/02/2024 Encounter Details Date Type Department Care Team ([facility] Contact Info) Description 03/02/2024 Telephone [facility] [address] [place] [address] Keiry West FNP [address] [place] [address] Medication Question Social History Tobacco Use Types [...] Miscellaneous Notes * Telephone Encounter - Hanna oKng RN - 03/16/2024 4:24 PM EST Tc to pt via [facility] grease rack worker id: [id number] to let them know provider would like to see them for a in person visit first before prescribing 0.5 mg Wegovy. Crucible Furnace Tender stayed on the line for 7 minutes thenproceeds to say unable to dial out. Tc to via S grease rack worker services id: [id number] grease rack worker statesscreen is frozen and unable to do dial out. Tc to pt without grease rack worker services and pt states grease rack worker is not needed. Sick on site appt [...] medication is currently on backorder. Tc to [facility] pharmacy who claims that they have the medication in stock but they need a script. Tc to pt via [employer] id: [id number] unable to call back do to system not working and transferred to another grease rack worker id: [id number] to schedule tp appointment and see if they're okay with wegovy script to be sent to [facility] pharmacy. Pt agrees to plan and [...] approval letter, can try to fill at [facility] in [place] as they already have script. Pt verbalized [...] documented in this encounter Plan of Treatment Not on file documented as of this encounter Visit Diagnoses Diagnosis Obesity (BMI 30.0-34.9) documented in this encounter Additional Health Concerns Assessment Noted Time PHQ-9 Depression Total Score: 9 07/19/19 9:57 AM EDT documented as of this encounter Care Teams Carton Forming Machine Operator Relationship Specialty Start Date End Date Keiry West FNP [address] [place] [address] PCP - General Family Medicine 07/19/23 03/02/24 Yuliana Lin NP [address] [place] [address] PCP - General Family Medicine 03/24/24 documented as of this encounter
--- OUTSIDE RECORDS SUMMARY | 2024-12-30 14:21 | XMS_ITS | Encounter Summary ---
Author Organization [employer] Address [address] [facility] 7t [place] [address] Care Team Providers Care Technical Communicator Name Role Phone Keiry West [employer] Primary Care Provider [phone] Yuliana Lin NP Primary Care Provider [phone] Reason for Visit * Reason Comments Med Refill Encounter Details Date Type Department Care Team ([facility] Contact Info) Description 08/28/2023 Refill [facility] [address] [place] [address] Blanquita Landers MD [address] [place] [address] Vitamin D deficiency Social History Tobacco Use [...] documented as of this encounter Care Teams Technical Communicator Relationship Specialty Start Date End Date Keiry West FNP [address] [place] [address] PCP - General Family Medicine 07/19/23 03/02/24 Yuliana Lin NP [address] [place] [address] PCP - General Family Medicine 03/24/24 documented as of this encounter
[2024-12-30 17:06] LABS: Bacterial Vaginosis PCR NEGATIVE (Negative); Candida Group PCR DETECTED (Not Detect); Candida glab krusei PCR NOT DETECTED (Not Detect); Trichomonas vaginalis PCR NOT DETECTED (Not Detect)
== END 2024-12-29 16:10 | disposition home or self-care (01) ==
LOC: HO.HHCLNP 16:09
PROVIDERS: Visit Provider Nurse Practitioner Family
DX: N89.8 Other specified noninflammatory disorders of vagina (principal)
CPT/HCPCS: 81515

== ENCOUNTER 2025-04-10 19:56 | Emergency (ER) | payer MEDICAID, SELFPAY ==
--- NOTE | ~2025-04-10 | XR_ITS ---
CLINICAL HISTORY: short of breath 2 view chest x-ray Comparison: CR/SR - XR CHEST 2 VIEWS - 07/23/24 15:29 EDT Findings: The lungs are clear. Heart size is normal. No acute fracture. IMPRESSION: 1. No acute findings. This document has been electronically signed by: Rahel Booth MD on 04/10/2025 20:21:44
[2025-04-10 20:06] VITALS: BP 140/80; PULSE 112; RESP 20; TEMP 36.9; O2SAT 95; BMI 36.8
--- NOTE | 2025-04-10 20:07 | ECG_ITS ---
Test Reason : SOB Blood Pressure : */* mmHG Vent. Rate : 107 BPM Atrial Rate : 107 BPM P-R Int : 148 ms QRS Dur : 74 ms QT Int : 348 ms P-R-T Axes : 34 12 37 degrees QTcB Int : 464 ms Sinus tachycardia Cannot rule out Inferior infarct , age undetermined Anterior infarct (cited on or before 30-Oct-2024) Abnormal ECG When compared with ECG of 30-Oct-2024 06:05, Vent. rate has increased by 46 bpm Questionable change in initial forces of Anterior leads Referred By: Maira Storey Electronically Signed By: ALEXANDRA CADE
--- NOTE | 2025-04-10 20:09 | ED.ASTHMA ---
HPI - Asthma General Chief Complaint: Asthma Stated Complaint: asthma, back pain Time Seen by Provider: 04/11/25 00:44 Source: patient Mode of arrival: ambulatory Limitations: no limitations History of Present Illness ED Provider: Dr. Catherine Waller HPI Narrative: 34-year-old female with a history of asthma presenting with cough and shortness of breath ongoing for the last 7 days. She also describes dysuria and yellow vaginal discharge that has been more copious over the last 2 weeks. Admits that she is having vaginal itching associated with it. No vaginal bleeding. Denies associated fever. Denies chest pain, sick contacts, recent travel. No recent steroid or antibiotic use. Related Data Home Medications ?Medication ?Instructions ?Recorded ?Confirmed albuterol sulfate 90 mcg/actuation 2 puff inhalation Q4-6H PRN 04/07/24 04/20/24 aerosol inhaler (Ventolin HFA) wheezing Previous Rx's ?Medication ?Instructions ?Recorded acetaminophen 500 mg capsule 1,000 mg (2 x 500 mg) PO Q8H PRN 07/23/24 fever or pain #20 caps cefpodoxime 200 mg tablet 200 mg PO BID #16 tabs 07/23/24 ibuprofen 400 mg tablet 400 mg PO Q6H PRN pain #14 tabs 07/23/24 cyclobenzaprine 5 mg tablet 5 mg PO Q8H PRN muscle pain #7 tabs 07/26/24 lidocaine 5 % topical patch 1 patch topical DAILY #15 ea 07/26/24 (Lidoderm) miconazole nitrate 4 % (200 mg)-2 1 appful vaginal DAILY 3 days #24 04/11/25 % (9 gram)vaginal,prefill grams appl,cream (Monistat 3) ondansetron 4 mg disintegrating 4 mg PO Q8H PRN nausea and 04/11/25 tablet vomiting #10 tabs prednisone 50 mg tablet 50 mg PO DAILY 5 days #5 tabs 04/11/25 Allergies Allergy/AdvReac Type Severity Reaction Status Date / Time tramadol Allergy Severe Anaphylaxis Verified 04/10/25 20:08 Review of Systems Review of Systems: as per HPI, full review of systems performed and negative but for the above mentioned pertinent positives and negatives. FORMERLY [facility], [facility] Past Medical History Medical History Anxiety Asthma Morbid obesity No pertinent past medical history Surgical History Hx of oral surgery Hx of tubal ligation Family History Family History Mother Cancer Thyroid condition Father Hypertension Son No problems noted. Social History Social History Alcohol intake: current Alcohol intake frequency: does not drink Patient Tobacco Use Status: Never used Tobacco Advance Directives: No Advance Directives Information Provided: No Do you have a plan to hurt others: No Plan Physical Exam Exam: Exam: GENERAL: Ill-appearing, moderate respiratory distress. SKIN: Normal skin color for ethnicity, warm, dry, no rashes noted. HEENT:? Normocephalic, atraumatic, no stridor, EOMI. NECK: Soft, supple, full ROM, midline structures nontender, no step-offs, no deformities, no lymphadenopathy. CHEST: Heart regular tachycardia, symmetric chest rise and fall. PULMONARY: Diffuse wheezes throughout, tachypnea, poor air movement bilaterally, moderate respiratory distress. ABDOMINAL: Soft, nontender, quiet bowel sounds in all quadrants. : Deferred. MUSCULOSKELETAL: Normal tone, full range of motion, no deformities, no peripheral edema. NEURO: Alert and oriented to person, CN II through XII intact, no focal neurologic deficits.? PSYCHIATRIC: Anxious affect, appropriate demeanor. Vital Signs: Vital Signs: Last Vital Signs Temp 98.0 F 04/11/25 03:07 Pulse 87 04/11/25 03:07 Resp 18 04/11/25 03:07 BP 100/68 04/11/25 03:07 Pulse Ox 96 04/11/25 03:07 O2 Del Method Room Air 04/11/25 03:07 BMI result Body Mass Index 36.8 Course Course Course Narrative: This is a Rapid Medical Examination (RME) performed by Miguel Storey PA-C in triage. Full HPI, ROS, assessment and treatment plan per primary provider in the Main ED. Hx: 34 yo F hx asthma here for eval of wheezing, sob, and cough x1 week. using inhaler at home w/o relief. used this 3x today, last around 1500. also endorsing suprapubic abd pain and abnormal yellow vaginal discharge. feeling internal burning . no urinary sx. She is sexually active with long-term partner, does not use protection. PE/vitals: chest tight w/ inspiratory wheezing to right upper lung field. speaking in 2-3 word sentences. bronchospastic cough. no tripoding. Plan: labs, ekg, cxr, viral swabs, UA, CTNG Medications Administered Discontinued Medications Generic Name Dose Route Start Last Admin Trade Name Willq PRN Reason Stop Dose Admin Albuterol Sulfate 2.5 mg/ 5 mg 04/10/25 20:18 04/10/25 20:21 Albuterol Sulfate 2.5 mg INHALE 04/10/25 20:19 5 mg ONCE ONE Administration Ibuprofen 600 mg 04/11/25 02:37 04/11/25 03:02 Ibuprofen 600 Mg Tablet PO 04/11/25 02:38 600 mg ONCE ONE Administration Methylprednisolone Sodium Succinate 80 mg 04/10/25 20:10 04/10/25 20:25 Methylprednisolone Sod Succ 125 Mg/2 Ml Vial IVPUSH 04/10/25 20:11 80 mg ONCE ONE Administration Medical Decision Making Medical Decision Making [facility] Narrative: Patient presents today with chief complaint of shortness of breath. Differential diagnosis includes, but is not limited to, upper respiratory infection, pneumonia, COPD exacerbation, asthma exacerbation, CHF, pneumothorax, pleural effusion, pulmonary embolism, ACS. Broad-based work-up will be initiated to evaluate for etiology of patient's symptoms. Vaginal discharge is consistent with her chronic BV infection. Treated with metronidazole. Patient feeling improved after albuterol and DuoNeb treatments. Provided with prescription for prednisone. Discharged in stable condition. Differential Diagnosis Differential Diagnoses: The differential diagnosis associated with the presentation includes (As above) Admission/Observation Consideration of admission/observation: Escalation of care including admission/observation considered Lab Data [facility] Lab Attestation statement: I reviewed the patient's lab results. 04/10/25 20:23 04/10/25 20:23 Labs: Lab Results 04/10/25 04/10/25 04/11/25 Range/Units 20:23 22:15 03:04 WBC 7.3 (4.8-10.8) X10*3/uL RBC 4.80 (4.20-5.50) X10*6/uL Hgb 13.8 (12.0-16.0) g/dl Hct 41.0 (37.0-47.0) % MCV 85.4 (80.0-98.0) fL MCH 28.8 (27.0-33.0) pg MCHC 33.7 (31.0-35.0) g/dl RDW 15.6 (11.0-16.0) % Plt Count 197 D (160-400) X10*3/uL MPV 10.8 (9.4-12.3) fL Immature Gran % (Auto) 0.3 (0.0-0.4) % Neut % (Auto) 49.4 (45-73) % Lymph % (Auto) 31.0 (20-40) % [place] % (Auto) 15.5 H (2-11) % Eos % (Auto) 3.0 (0-4) % Baso % (Auto) 0.8 (0-2) % Lymph # (Auto) 2.3 (1.2-4.9) X10*3/uL [place] # (Auto) 1.1 (0.1-1.2) X10*3/uL Eos # (Auto) 0.2 (0.0-0.4) X10*3/uL Baso # (Auto) 0.1 (0.0-0.2) X10*3/uL Abs Immat Gran (auto) 0.02 (0.00-0.03) X10*3/uL Absolute Neuts (auto) 3.6 (2.0-8.3) x10*3/uL Absolute Nucleated RBC 0.000 (0.0-0.012) X10*3/uL Nucleated RBC % (auto) 0.0 (0.0-0.2) /100WBC Sodium 144 (135-145) mmol/L Potassium 4.7 D (3.3-5.1) mmol/L Chloride 113 H (96-108) mmol/L Carbon Dioxide 23 (22-29) mmol/L Anion Gap 13 (12-20) BUN 16 (9-16) mg/dL Creatinine 1.28 (0.5-1.4) mg/dL Estim Creat Clear Calc 74.5 Estimated GFR 47 Random Glucose 73 (60-115) mg/dL Calcium 9.6 (8.4-10.2) mg/dL Magnesium 2.5 (1.6-2.6) mg/dL Total Bilirubin 0.3 (0.0-1.0) mg/dL AST 33 H (5-31) U/L ALT 73 H (0-31) U/L Alkaline Phosphatase 82 (39-117) U/L Total Protein 7.7 (6.5-8.0) g/dL Albumin 4.6 (3.5-5.0) g/dL Urine Color Yellow Urine Appearance Clear Urine pH 5.5 (5.0-9.0) Ur Specific [place] 1.025 (1.005-1.025) Urine Protein Negative (Neg-Trace) mg/dL Urine Glucose (UA) Negative (Negative) mg/dL Urine Ketones Trace (Negative) mg/dL Urine Blood Negative (Negative) Urine Nitrite Negative (Negative) Ur Leukocyte Esterase Negative (Negative) Ur N gonorrhoeae DNA (PCR) NOT DETECTED (Not Detect.) Ur Chlamydia DNA (PCR) NOT DETECTED (Not Detect.) Influenza Type A (PCR) NEGATIVE (Negative) Influenza Type B (PCR) NEGATIVE (Negative) RSV RNA Qual (PCR) NEGATIVE (Negative) SARS-CoV-2 RNA (RT-PCR) NEGATIVE (Negative) T. vaginalis (PCR) NOT DETECTED (Not Detect) Bact vaginosis (PCR) NEGATIVE (Negative) C. krusei/glabrata (PCR) NOT DETECTED (Not Detect) Luz group (PCR) NOT DETECTED (Not Detect) Independent Interpretation I performed an independent interpretation of an: Plain X-Ray Interpretation: My independent interpretation of the chest x-ray reveals no consolidations, pulmonary edema, pleural effusion, pneumothorax, obvious bony abnormalities. Radiology Impression Discussion of test interpretation with radiology: I have reviewed the radiologist's reading. External Record Review External record reviewed: Inpatient record Prescription Management I considered prescription management with: Antibiotic and Other (Steroids) Chronic Conditions Patient?s care impacted by: Other (Asthma) Discharge Plan Discharge Clinical Impression: Asthma with acute exacerbation, Vaginitis Patient Disposition: Home, Self-Care Instructions: Bacterial Vaginosis (ED), Asthma (ED) Additional Instructions: Use ibuprofen for low back pain. Take prednisone every day for the next 5 days. If your asthma symptoms do not improve or if you have to use your inhaler more than once every 2 hours, you should return to the emergency department immediately. Call 911 with any medical emergency. You will be contacted if your BV swab is positive. You can pick up operator the Monistat cream at the pharmacy. Prescriptions: New prednisone 50 mg tablet 50 mg PO DAILY 5 Days Qty: 5 0RF miconazole nitrate [Monistat 3] 4 % (200 mg)- 2 % (9 gram) comb pack,prefill appl, cream 1 appful vaginal DAILY 3 Days Qty: 24 0RF Rx Instructions: as vaginal cream ondansetron 4 mg tablet,disintegrating 4 mg PO Q8H PRN (Reason: nausea and vomiting) Qty: 10 0RF No Action cefpodoxime 200 mg tablet 200 mg PO BID Qty: 16 0RF Rx Instructions: must administer with a meal/food ibuprofen 400 mg tablet 400 mg PO Q6H PRN (Reason: pain) Qty: 14 0RF acetaminophen 500 mg capsule 1,000 mg PO Q8H PRN (Reason: fever or pain) Qty: 20 0RF cyclobenzaprine 5 mg tablet 5 mg PO Q8H PRN (Reason: muscle pain) Qty: 7 0RF lidocaine [Lidoderm] 5 % adhesive patch,medicated 1 patch topical DAILY Qty: 15 0RF Rx Instructions: leave on most painful area for up to 12 hrs albuterol sulfate [Ventolin HFA] 90 mcg/actuation HFA aerosol inhaler 2 puff inhalation Q4-6H PRN (Reason: wheezing) Interventions: ED Discharge Assessment Last Done: 04/11/25 03:07 Discharge Date/Time: 04/11/25 03:27 Print Language: Kinyarwanda
[2025-04-10 20:20] VITALS: PULSE 117; RESP 18; O2SAT 97
[2025-04-10] MEDS: Albuterol Sulfate 2.5 MG, Albuterol Sulfate (0.083%) 2.5 MG 5 MG INHALE (20:21)
[2025-04-10 20:28] LABS: Hematocrit 41.0 % (37.0-47.0); Hemoglobin 13.8 g/dl (12.0-16.0); Imm Gran Abs Auto 0.02 X10*3/uL (0.00-0.03); Imm Gran Pct Auto 0.3 % (0.0-0.4); Lymphocytes Absolute Auto 2.3 X10*3/uL (1.2-4.9); MANUAL DIFF FLAG NO; Mean Corpuscular HGB Conc 33.7 g/dl (31.0-35.0); Mean Corpuscular Hemoglobin 28.8 pg (27.0-33.0); Mean Corpuscular Volume 85.4 fL (80.0-98.0); NRBC Abs Auto 0.000 X10*3/uL (0.0-0.012); NRBC Pct Auto 0.0 /100WBC (0.0-0.2); Platelet Count 197 X10*3/uL (160-400); Red Blood Count 4.80 X10*6/uL (4.20-5.50); White Blood Count 7.3 X10*3/uL (4.8-10.8)
[2025-04-10 20:41] LABS: Alanine Aminotransferase 73 U/L (0-31); Albumin Level 4.6 g/dL (3.5-5.0); Alkaline Phosphatase 82 U/L (39-117); Anion Gap 13 (12-20); Aspartate Amino Transferase 33 U/L (5-31); Blood Urea Nitrogen 16 mg/dL (9-16); Calcium 9.6 mg/dL (8.4-10.2); Carbon Dioxide 23 mmol/L (22-29); Chloride 113 mmol/L (96-108); Creatinine Clr Calc Pharmacy 74.5; Estimated Glomerular Filt Rate 47; Magnesium 2.5 mg/dL (1.6-2.6); Potassium 4.7 mmol/L (3.3-5.1); Sodium 144 mmol/L (135-145); Total Protein 7.7 g/dL (6.5-8.0)
[2025-04-10 21:07] LABS: Resp Syncy Virus RNA Qual PCR NEGATIVE (Negative); SARS COV2 PCR INHOUSE NEGATIVE (Negative)
--- OUTSIDE RECORDS SUMMARY | 2025-04-10 21:19 | XMS_ITS | Clinical Summary ---
Author Organization [facility] Address [address] [place] [phone] Phone Care Team Providers Care Disability Advocate Name Role Phone Pcp, Unknown Primary Care Provider Unavailabl e Allergies No known active allergies Medications vit calc,iron,folic ( VITAMIN ORAL) Take by mouth. Active Active Problems Problem Noted Date Diagnosed Date Encounter for supervision of normal in first trimester 12/01/2019 Overview (12/01/2019): Discuss HGB electrophoresis at [place] [facility] score: 1 [12/01/2019] . Group [...] PAP SMEAR 2010 DEPRESSION SCREENING 01/22/2020 01/21/2019 INFLUENZA VACCINE (#1) 2024 COVID-19 VACCINE (3 - 2024-2 6 season) 2025 09/12/2020, 08/15/2020 HEPATITIS A VACCINES Aged Out No long [...] Insurance CROSS OUT OF STATE PPO [address] [place] [address] BLUE CROSS OUT OF STATE PPO BLUE CROSS OUT OF STATE PPO [address] [address] BLUE CROSS OUT OF STATE PPO [address] [place] [id number] BLUE CROSS OUT OF [address] PPO [address] [place] [phone] BLUE CROSS OUT OF STATE PPO BLUE CROSS OUT OF STATE PPO BLUE CROSS OUT [employer] STATE PPO [address] [place] [phone] BLUE CR[employer] OUT OF STATE PPO Care Teams Disability Advocate Relationship Specialty Start Date End Date Pcp, Unknown PCP - General 09/04/22 Additional Source Comments The information contained in this document represents components of the legal health record. It is not the complete legal health record.[facility]
--- OUTSIDE RECORDS SUMMARY | 2025-04-10 21:19 | XMS_ITS ---
Author Name [facility] Organization Unknown Care Team Organization Name Specialty Phone Email Start Date End [facility] NO PCP Primary Care 01/22/2022 01/22/2022
--- OUTSIDE RECORDS SUMMARY | 2025-04-10 21:19 | XMS_ITS | Encounter Summary ---
Author Organization [facility] Address [address] [place] [address] Care Team Providers Care Machining Technician Name Role Phone Kiery West RISK OFFICER Primary Care Provider [phone] Yuliana Lin NP Primary Care Provider [phone] Reason for Visit * Reason Comments Med Refill Encounter Details Date Type Department Care Team ([facility] Contact Info) Description 08/28/2023 Refill [facility] [address] [place] [phone] Blanquita Landers MD [address] [place] [address] Vitamin D deficiency Social History Tobacco Use [...] Care Team (Late st Contact Info) Description 06/29/2025 1:30 PM EST Office Visit [facility] [address] [place] [phone] Yuliana Lin NP [address] [place] [address] documented as of this encounter Visit Diagnoses Diagnosis Vitamin D deficiency documented in this encounter Additional Health Concerns Assessment Noted Time PHQ-9 Depression Total Score: 9 07/19/19 9:57 AM EDT documented as of this encounter Care Teams Machining Technician Relationship Specialty Start Date End Date Keiry West FNP [address] [place] [address] PCP - General Family Medicine 07/19/23 03/02/24 Yuliana Lin NP [address] [place] [address] PCP - General Family Medicine 03/24/24 documented as of this encounter
--- OUTSIDE RECORDS SUMMARY | 2025-04-10 21:19 | XMS_ITS | Encounter Summary ---
Author Organization [facility] Address [address] [facility] [address] [place] [address] Care Team Providers Care Mail List Librarian Name Role Phone Yuliana Lin CRISTOPHER Primary Care Provider Encounter Details Date Type Department Care Team ([facility] Contact Info) Description 04/10/2025 Orders Only GENERIC EXTERNAL DATA DEPARTMENT Provider, Generic External Data Social History Tobacco Use Types Packs/Day Years [...] Description 06/29/2025 1:30 PM EST Office Visit [facility] [address] [place], [place] [phone] Yuliana Lin NP [address] [place] [phone] documented as of this encounter Procedures Procedure Name Priority Date/Time Associated Diagnosis Comments SARS COV2/INFLUENZA A/B AND RSV RNA QL NAAT Routine 04/10/2025 8:23 PM EST CBC WITH AUTO DIFFERENTIAL Routine 04/10/2025 8:23 PM EST MAGNESIUM Routine 04/10/2025 8:23 PM EST COMPREHENSIVE METABOLIC PANEL Routine 04/10/2025 8:23 PM EST XR CHEST 2 VIEWS Routine 04/10/2025 8:21 PM EST documented in this encounter Results * SARS-CoV-2 RNA, Influenza A/B, and RSV RNA, Ql NAAT (04/10/2025 8:23 PM EST) Influenza A PCR NEGATIVE Negative [facility] Influenza B PCR NEGATIVE Negative [facility] Resp Syncy Virus RNA Qual PCR NEGATIVE Negative [facility] SARS COV2 PCR NEGATIVE Negative [facility] Comment:All test results mus t be correlated with clinical findings.Negative results do not preclude SARS-CoV2, influenza Avirus, influenza B virus and/or RSV infectionand should not be used as the sole basis for treatment orother patient management decisions. Negative results must becombined with clinical observations, patient history, andepidemiological information.This test has not been evaluated for monitoring treatment ofinfection.This test has been authorized by the FDA under an EmergencyUse Authorization (EUA) for use by authorized laboratories.Testing performed on the Knock Knock GeneXpert utilizingreal-time RT-PCR.All SARS CoV2 and positive influenza A/B results arereported to [facility]. 04/10/2025 8:23 PM EST 04/10/2025 8:30 PM EST Generic External Data Provider LAB MICROBIOLOGY - GENERAL ORDERABLES Final Result Performing Organization Address City/[facility]/ZIP Co de Phone Number [facility] [address] [place] [phone] * Magnesium (04/10/2025 8:23 PM EST) Pathologist [facility] Magnesium 2.5 1.6 - 2.6 mg/dL [facility] 04/10/2025 8:23 PM EST 04/10/2025 8:26 PM EST Generic External Data Provider LAB BLOOD ORDERAB LES Final Result Performing Organization Address [facility] Co de Phone Number [facility] [address] [place] [phone] * (ABNORMAL) Comprehensive Metabolic Panel (04/10/2025 8:23 PM EST) Sodium 144 135 - 145 mmol/L [facility] Potassium 4.7 3.3 - 5.1 mmol/L [facility] Chloride 113(H) 96 - 108 mmol/L [facility] Carbon Dioxide 23 22 - 29 mmol/L [facility] Anion Gap 13 12 - 20 [facility] Urea Nitrogen (BUN) 16 9 - 16 mg/dL [facility] Creatinine, Serum 1.28 0.5 - 1.4 mg/dL [facility] Creatinine Clr Calc Pharmacy 74.5 [facility] Comment:Provided height and weight: 167.64 cm,103.3 kg.eGFR (calculated from the MDRD study equation) and eCrCl(calculated from the Cockcroft-Gault equation) are based ondifferent parameters and may not yield comparable results.If eCrCl result is absurd, please check patient'sheight/weight. Estimated Glomerular Filt Rate 47 [facility] Comment:Chronic Kidney Disea se: Estimated GFR < 60 mL/min/1.63e3Hnvdtc Kidney Disease: Estimated GFR < 15 mL/min/1.73m2 Glucose 73 60 - 115 mg/dL [facility] Calcium 9.6 8.4 - 10.2 mg/dL [facility] Bilirubin, Total 0.3 0.0 - 1.0 mg/dL [facility] Aspartate Amino Transferase 33(H) 5 - 31 U/L [facility] Alanine Aminotransferase 73(H) 0 - 31 U/L [facility] Total Protein 7.7 6.5 - 8.0 g/dL [facility] Albumin Level 4.6 3.5 - 5.0 g/dL [facility] Alkaline Phosphatase 82 39 - 117 U/L [facility] 04/10/2025 8:23 PM EST 04/10/2025 8:26 PM EST us Generic External Data Provider LAB BLOOD ORDERAB LES Final Result [facility] [address] [place], [place] [phone] * (ABNORMAL) CBC auto differential (04/10/2025 8:23 PM EST) White Blood Count 7.3 4.8 - 10.8 X10*3/uL [facility] Red Blood Count 4.80 4.20 - 5.50 X10*6/uL [facility] Hemoglobin 13.8 12.0 - 16.0 g/dl [facility] Hematocrit 41.0 37.0 - 47.0 % [facility] Mean Corpuscular Volume 85.4 80.0 - 98.0 fL [facility] Mean Corpuscular Hemoglobin 28.8 27.0 - 33.0 pg [facility] Mean Corpuscular HGB Conc 33.7 31.0 - 35.0 g/dl [facility] Red Cell Distribution Width 15.6 11.0 - 16.0 % [facility] Platelet Count 197 160 - 400 X10*3/uL [facility] Mean Platelet Volume 10.8 9.4 - 12.3 fL [facility] Neutrophils Percent Auto 49.4 45 - 73 % [facility] Imm Gran Pct Auto 0.3 0.0 - 0.4 % [facility] Lymphocytes Percent Auto 31.0 20 - 40 % [facility] Monocytes Percent Auto 15.5(H) 2 - 11 % [facility] Eosinophils Percent Auto 3.0 0 - 4 % [facility] Basophils Percent Auto 0.8 0 - 2 % [facility] NRBC Pct Auto 0.0 0.0 - 0.2 /100WBC [facility] Neutrophils Absolute Auto 3.6 2.0 - 8.3 x10*3/uL [facility] Imm Gran Abs Auto 0.02 0.00 - 0.03 X10*3/uL [facility] Lymphocytes Absolute Auto 2.3 1.2 - 4.9 X10*3/uL [facility] Monocytes Absolute Auto 1.1 0.1 - 1.2 X10*3/uL [facility] Eosinophils Absolute Auto 0.2 0.0 - 0.4 X10*3/uL [facility] Basophils Absolute Auto 0.1 0.0 - 0.2 X10*3/uL [facility] NRBC Abs Auto 0.000 0.0 - 0.012 X10*3/uL [facility] 04/10/2025 8:23 PM EST 04/10/2025 8:26 PM EST us Generic External Data Provider LAB BLOOD ORDERAB LES Final Result [facility] [address] [place] [phone] * XR Chest 2 Views (04/10/2025 8:21 PM EST) Anatomical Region Laterality Modality Chest Radiographic Kelly ging 04/10/2025 8:21 PM EST Narrative 04/10/2025 8:23 PM EST [place] [id number] XRay Report Signed Patient: Zee Lott MR#: [id number] : 1990 Acct:[id number] Age/Sex: 34 / F ADM Date: 04/10/25 Loc: HO.ED Attending Dr: Ordering Physician: Maira Storey Date of Service: 04/10/25 Procedure(s): XR chest 2V Accession Number(s): [id number] cc: Yuliana Lin AUTOMOTIVE SERVICE ASSISTANT; Maira Storey Reason for Exam: short of breath CLINICAL HISTORY: short of breath 2 view chest x-ray Comparison: CR/SR - XR CHEST 2 VIEWS - 07/23/24 15:29 EDT Findings: The lungs are clear. Heart size is normal. No acute fracture. IMPRESSION: 1. No acute findings. This document has been electronically signed by: Rahel Booth MD on 04/10/2025 20:21:44 Dictated By: Rahel Booth MD Signed By: <Electronically signed by Rahel Booth MD in OV> 04/10/252021 DD/ 20 TD/TT: 04/10/252020 Patient Support Tech: Procedure Note Donotuseinterpreter, Image - 04/10/2025 [place] [address] XRay Report Signed Patient: Zee Lott MR#: [id number] : 1990Acct:[id number] Age/Sex: 34 / FADM Date: 04/10/25 Loc: HO.ED Attending Dr: Ordering Physician: Maira Storey Date of Service: 04/10/25 Procedure(s): XR chest 2V Accession Number(s): [id number] cc: Yuliana Lin AUTOMOTIVE SERVICE ASSISTANT; Maira Storey Reason for Exam: short of breath CLINICAL HISTORY: short of breath 2 view chest x-ray Comparison: CR/SR - XR CHEST 2 VIEWS - 07/23/24 15:29 EDT Findings: The lungs are clear. Heart size is normal. No acute fracture. IMPRESSION: 1. No acute findings. This document has been electronically signed by: Rahel Booth MD on 04/10/2025 20:21:44 Dictated By: Rahel Booth MD Signed By: <Electronically signed by Rahel Booth MD in OV> 04/10/252021 DD/ 20 TD/TT: 04/10/252020 Patient Support Tech: [facility] External Provider IMG XR PROCEDURES Edited Result - Final documented in this encounter Visit Diagnoses Not on filedocumented in this encounter Additional Health Concerns Assessment Noted Time PHQ-9 Depression Total Score: 0 12/30/19 3:34 PM EDT documented as of this encounter Care Teams Mail List Librarian Relationship Specialty Start Date End Date Yuliana Lin NP [address] [place] [phone] PCP - General Family Medicine 03/24/24 documented as of this encounter
--- OUTSIDE RECORDS SUMMARY | 2025-04-10 21:19 | XMS_ITS | Encounter Summary ---
Author Organization [employer] Address [address] [facility] [address] 7[address] [place] [address] Care Team Providers Care Supervisor Winding Department Name Role Phone Keiry WestP Primary Care Provider [phone] Yuliana Lin NP Primary Care Provider [phone] Reason for Visit * Reason Onset Date Comments Medication Question 03/02/2024 Encounter Details Date Type Department Care Team ([facility] Contact Info) Description 03/02/2024 Telephone [facility] [address] [place] [address] Keiry West FNP [address] [place] [address] Medication Question Social History Tobacco Use Types [...] 4:24 PM EST Tc to pt via [facility] senior risk analyst id: [id number] to let them know provider would like to see them for a in person visit first before prescribing 0.5 mg Wegovy. Used Car Make Ready Mechanic stayed on the line for 7 minutes thenproceeds to say unable to dial out. Tc to via S senior risk analyst services id: [id number] senior risk analyst statesscreen is frozen and unable to do dial out. Tc to pt without senior risk analyst services and pt states senior risk analyst is not needed. Sick on site appt [...] medication is currently on backorder. Tc to [facility] pharmacy who claims that they have the medication in stock but they need a script. Tc to pt via [employer] id: [id number] unable to call back do to system not working and transferred to another senior risk analyst id: [id number] to schedule tp appointment and see if they're okay with wegovy script to be sent to [facility]. Pt agrees to plan and verbalized [...] approval letter, can try to fill at [facility] in [place] as they already have script. Pt verbalized [...] Description 06/29/2025 1:30 PM EST Office Visit [facility] [address] [place] [address] Yuliana Lin NP [address] [place] [address] documented as of this encounter Visit Diagnoses Diagnosis Obesity (BMI 30.0-34.9) documented in this encounter Additional Health Concerns Assessment Noted Time PHQ-9 Depression Total Score: 9 07/19/19 9:57 AM EDT documented as of this encounter Care Teams Supervisor Winding Department Relationship Specialty Start Date End Date Keiry West FNP [address] [place] [address] PCP - General Family Medicine 07/19/23 03/02/24 Yuliana Lin NP [address] [place] [address] [phone] PCP - General Family Medicine 03/24/24 documented as of this encounter
--- OUTSIDE RECORDS SUMMARY | 2025-04-10 21:19 | XMS_ITS | Encounter Summary ---
Author Organization [employer] Address [address] [facility] 7 [place] [address] Care Team Providers Care Shipper And Receiving Name Role Phone Keiry West Primary Care Provider + Yuliana Lin NP Primary Care Provider [phone] Encounter Details Date Type Department Care Team (Latest Contact Info) Description 09/03/2018 Abstract [facility] CONVERSIONS Dental, Provider, DDS Social History Tobacco [...] Care Team ( st Contact Info) Description 06/29/2025 1:30 PM EST Office Visit [facility] [address] [place] [address] Yuliana Lin NP [address] [place] [address] documented as of this encounter Visit Diagnoses Not on filedocumented in this encounter Care Teams Shipper And Receiving Relationship Specialty Start Date End Date Keiry West FNP [address] [place] [address] PCP - General Family Medicine 07/19/23 03/02/24 Yuliana Lin NP [address] [place] [address] PCP - General Family Medicine 03/24/24 documented as of this encounter
--- OUTSIDE RECORDS SUMMARY | 2025-04-10 21:19 | XMS_ITS | Encounter Summary ---
Author Organization [employer] Address [address] [facility] 7t [place] [address] Care Team Providers Care Raw Hide Trimmer Name Role Phone Keiry WestP Primary Care Provider [phone] Yuliana Lin NP Primary Care Provider [phone] Reason for Visit * Reason Onset Date Comments Med Refill 11/24/2023 Encounter Details Date Type Department Care Team ([facility] st Contact Info) Description 11/24/2023 Refill [facility] [address] [place] [address] Keiry West FNP [address] [place] [address] Social History Tobacco Use Types Packs/Day Years [...] Description 06/29/2025 1:30 PM EST Office Visit [facility] [address] [place] [address] Yuliana Lin NP [address] [place] [address] documented as of this encounter Visit Diagnoses Not on filedocumented in this encounter Additional Health Concerns Assessment Noted Time PHQ-9 Depression Total Score: 9 07/19/19 9:57 AM EDT documented as of this encounter Care Teams Raw Hide Trimmer Relationship Specialty Start Date End Date Keiry West FNP [address] [place] [address] PCP - General Family Medicine 07/19/23 03/02/24 Yuliana Lin NP [address] [place] [address] PCP - General Family Medicine 03/24/24 documented as of this encounter
--- OUTSIDE RECORDS SUMMARY | 2025-04-10 21:19 | XMS_ITS | Clinical Summary ---
Author Organization [employer] Address [address] [facility] 7t [place] [address] Care Team Providers Care Paving Stone Installer Name Role Phone Yuliana Lin CRISTOPHER Primary Care Provider [phone] Allergies Active Allergy Reactions Criticality Noted Date Comments Tramadol Unknown 11/02/2020 Medications budesonide (Pulmicort) 180 MCG/ACT inhaler Inhale 1 puff in the morning and at bedtime. Rinse mouth with water after use to reduce aftertaste and incidence of candidiasis. Do not swallow. 3 each 024 Active acetaminophen (Tylenol) 500 MG tablet Take 2 tablets (1,000 mg) by mouth every 6 (six) hours if needed for moderate pain or fever for up to 25 doses. 40 tablet 025 Active albuterol 108 (90 Base) MCG/ACT inhaler Inhale 2 puffs every 4 (four) hours if needed for wheezing or shortness of breath. 18 g 3 025 Active Spacer/Aero-Hol ding Chambers (OptiChamber Radha) misc 1 each every 4 (four) hours if needed (asthma). 1 each 025 Active ibuprofen 400 MG tablet Take 1 tablet (400 mg) by mouth every 6 (six) hours if needed for moderate pain or fever for up to 30 doses. 30 tablet 025 Active fluticasone (Flonase Allergy Relief) 50 MCG/ACT nasal spray Administer 1 spray into each nostril Once per day. Shake gently. Before first use, prime pump. After use, clean tip and replace cap. 16 g 1 025 2025 Active loratadine (Claritin) 10 MG tablet Take 1 tablet (10 mg) by mouth Once per day. 30 tablet 3 025 2025 Active predniSONE (Deltasone) 20 MG tabletIndicatio ns:Mild asthma exacerbation 2 tabs po daily for 5 days 10 tablet Active cromolyn (Nasachrom) 5.2 MG/ACT nasal sprayIndication s:Mild asthma exacerbation Administer 1 spray into each nostril 4 times daily. 26 mL 12 025 2025 Active ketoconazole (NIZOral) 2 % shampooIndicati ons:Seborrheic dermatitis Apply topically 2 (two) times a week. 240 mL 1 Active Tirzepatide-Rex ght Management (Zepbound) 10 MG/0.5ML solution auto-injector Inject 0.5 mL (10 mg) under the skin every 7 (seven) days. 2 mL 2 Active senna-docusate sodium (Senokot-S) 8.6-50 MG tablet Take 1 tablet by mouth Once per day. 30 tablet 2 2025 Active diclofenac sodium 3 % gel Apply topically 2 times daily. 100 g 1 Active doxycycline (Vibra-Tabs) 100 MG tablet Take 1 tablet (100 mg) by mouth 2 times daily for 7 days. Take with a full glass of water and do not lie down for at least 30 minutes after. 14 tablet 2024 Active Tirzepatide-Rex ght Management (Zepbound) 10 MG/0.5ML solution auto-injector Inject 0.5 mL (10 mg) under the skin every 7 (seven) days. 2 mL 2024 Discontinued(R eorder (will not trigger notification to Pharmacy)) amoxicillin-cla vulanate (Augmentin) 875-125 MG tablet Take 1 tablet by mouth 2 times daily for 7 days. 14 tablet 2024 bisacodyl (Dulcolax) 5 MG EC tablet Take 2 tablets (10 mg) by mouth if needed each day for constipation for up to 10 days. Do not crush, chew, or split. 20 tablet 2024 Active Problems Problem Noted Date Diagnosed Date Acute non-recurrent frontal sinusitis 03/30/2025 Assessment & Plan (03/30/2025 2:01 PM EST): Lateral epicondylitis of right elbow 03/30/2025 Assessment & Plan (03/30/2025 2:01 PM EST): Orders: Referral to Orthopaedic Surgery; Future Class 3 severe obesity due t o excess calories with serious comorbidity and body mass index (BMI) of 40.0 to 44.9 in adult 12/29/2024 Assessment & Plan (03/30/2025 2:01 PM EST): Vaginal discharge 12/29/2024 Class 3 severe obesity [...] seating PCOS (polycystic ovarian syndrome) 07/31/2024 Uses Yakut as primary spoken language 08/01/19 25 Asthma exacerbation, mild 07/09/2024 Assessment & Plan (07/09/2024 10:35 AM EST): Reports SOB, sore throat and congestion with worsening asthma over the past 5 days. Mild, diffuse wheezing on exam. -prescribed short course of predniSONE (Deltasone) 20 MG, 2 tabs po daily for 5 day -prescribed cromolyn (Nasachrom) 5.2 MG/ACT nasal spray Morbid obesity (CMS/HCC) 06/06/2024 Assessment & Plan (08/03/2024 6:54 PM EDT): Pt pleased with gradual wt loss from zepbound, tolerating, will increase dose to 7.5 mg Assessment & Plan (06/06/2024 11:44 AM EST): Continue zepbound, dose titrated q 4 weeks Lifestyle and nutrition recommendations reviewed FH: malignant neoplasm of ovary 06/06/2024 Assessment & Plan (06/06/2024 11:44 AM EST): In care with [facility] fiction and nonfiction author, pt recently had imaging and labs Pap also managed via fiction and nonfiction author Chronic bilateral thoracic back pain 06/05/2024 Assessment [...] per PCP thyroid results normal. Severe obesity (CMS/HCC) 09/13/2023 Assessment & Plan (03/29/2024 4:14 PM EST): Pt tolerating wegovy but no sig wt reduction, Nutrition and exercise habits reviewed Will refer to bariatric surgery as well Anxiety disorder 07/10/2022 06/03/2023 Moderate depressive episode 07/10/2022 Dysmenorrhea 12/07/2021 Assessment & Plan (06/03/2023 9:27 AM EST): HCG is NEG today, RO PCOS, order labs to ro also STIs Will obtain pelvic US from [facility] and BLENDING COORDINATOR notes, she needs to fu with PCP [...] 12/01/2019 Overview (09/13/2023): Discuss HGB electrophoresis at [facility] OB-CMI score: 1 [12/01/2019] . Group PN [...] Encounters Date Type Department Care Team Description 04/10/2025 Orders Only GENERIC EXTERNAL DATA DEPARTMENT Provider, Generic External Data 04/08/2025 Refill [facility] [address] [place] [phone] Sabiha Michael MD Mild asthma exacerbation 04/06/[address] [address] Yuliana Lin NP Medication Question 03/30/2025 1:30 PM EST Office Visit [address] [place] [address] Yuliana Lin NP Class 3 severe obesity due to excess calories with serious comorbidity and body mass index (BMI) of 40.0 to 44.9 in adult (HCC) (Primary Dx); Acute non-recurrent frontal sinusitis; Lateral epicondylitis of right elbow 03/30/2025 Travel 03/29/2025 Telephone [facility] MEDICINE [address] [place] [phone] Yuliana Lin NP Chart Prep 02/17/2025 Refill [facility] MED[facility]INE [address] [place] [address] Yuliana Lin NP 02/17/2025 Refill [facility] [address] [place] [address] Sabiha Michael MD Mild asthma exacerbation 01/20/2025 Refill [facility] MED[facility]INE [address] [place] [address] [phone] Yuliana Lin NP 01/11/2025 Refill [facility] MED[facility]INE [address] [place] [phone] Yuliana Lin NP from Last 3 Months Immunizations Immunization Administration [...] Sign Reading Time Taken Comments Blood Pressure 122/84 03/30/2025 1:32 PM EST Pulse 92 03/30/2025 1:32 PM EST Temperature 36.8 C (98.2 F) 03/30/2025 1:32 PM EST Respiratory Rate 16 03/30/2025 1:32 PM EST Oxygen Saturation 98% 03/30/2025 1:32 PM EST Inhaled Oxygen Concentration - - Weight 104 kg (229 lb 2 oz) 03/30/2025 1:[address] Height 167.6 cm (5' 6 ) 03/30/2025 1:32 PM EST Body Mass Index 36.98 03/30/2025 1:32 PM EST Plan of Treatment Upcoming Encounters Date Type Department Care Team (Late st Contact Info) Description 06/29/2025 1:30 PM EST Office Visit [facility] MED[facility] [address] [place] [address] Yuliana Lin, CRISTOPHER [address] [place], [place] [phone] Health Maintenance Due Date Last Done Comments Family Planning (PISQ) 2004 HPV Vaccines (1 - 3-dose series) 2004 Pneumococcal Vaccine: Pediatrics (0 to 5 Years) and At-Risk Patients (6 to 49) Years (2 of 2 - PCV) 05/26/2022 05/26/2021 Hepatitis B Vaccines (2 of 3 - 19+ 3-dose series) 08/16/2023 07/19/2023 COVID-19 Vaccine ( - season) 2025 04/12/2021, 09/12/2020, 08/15/2020 Influenza Vaccine (#1) 2025 , 05/06/2020, 03/03/2020, Additional history exists SDOH Screening 05/22/2025 05/22/2024 Alcohol/Substance Use Screening 06/05/2025 06/05/2024 Disability Screening 08/03/2025 08/03/2024 Depression Screening 12/29/2025 12/29/2024, 12/30/19 Tobacco Screening 03/30/2026 03/30/2025 Lipid Panel 07/18/2028 07/19/2023, 06/03/2023 Cervical Cancer [...] Procedure Name Priority Date/Time Associated Diagnosis Comments MAGNESIUM Routine 04/10/2025 8:23 PM EST COMPREHENSIVE METABOLIC PANEL Routine 04/10/2025 8:23 PM EST CBC WITH AUTO DIFFERENTIAL Routine 04/10/2025 8:23 PM EST SARS COV2/INFLUENZA A/B AND RSV RNA QL NAAT Routine 04/10/2025 8:23 PM EST XR CHEST 2 VIEWS Routine 04/10/2025 8:21 PM EST HM PAP/HPV Routine 08/14/2023 11:27 AM EDT HEPATITIS PANEL, GENERAL Routine 08/07/2023 12:12 PM EDT Nausea and vomiting, unspecified vomiting type LIPID PANEL, STANDARD Routine 07/19/2023 10:10 AM EDT Class 3 severe obesity due to excess calories without serious comorbidity in adult, unspecified BMI (CMS/HCC) from Last 3 Months or Most Recently Relevant to Health Maintenance Results * SARS-CoV-2 RNA, Influenza A/B, and RSV RNA, Ql NAAT (04/10/2025 8:23 PM EST) Influenza A PCR NEGATIVE Negative [facility] Influenza B PCR NEGATIVE Negative [facility] Resp Syncy Virus RNA Qual PCR NEGATIVE Negative [facility] SARS COV2 PCR NEGATIVE Negative [facility] Comment:All test results mus t [...] use by authorized laboratories.Testing performed on the [employer] GeneXpert utilizingreal-time RT-PCR.All SARS CoV2 and positive influenza A/B results arereported to [facility]. 04/10/2025 8:23 PM EST 04/10/2025 8:30 PM EST us Generic External Data Provider LAB MICROBIOLOGY - GENERAL ORDERABLES Final Result [facility] [address] [place] [phone] * (ABNORMAL) CBC auto differential (04/10/2025 8:23 PM EST) White Blood Count 7.3 4.8 - 10.8 X10*3/uL [facility] Red Blood Count 4.80 4.20 - 5.50 X10*6/uL [facility] Hemoglobin 13.8 12.0 - 16.0 g/dl [facility] Hematocrit 41.0 37.0 - 47.0 % [facility] Mean Corpuscular Volume 85.4 80.0 - 98.0 fL [facility] Mean Corpuscular Hemoglobin 28.8 27.0 - 33.0 pg [facility] Mean Corpuscular HGB Conc 33.7 31.0 - 35.0 g/dl [facility] Red Cell Distribution Width 15.6 11.0 - 16.0 % [facility] Platelet Count 197 160 - 400 X10*3/uL [facility] Mean Platelet Volume 10.8 9.4 - 12.3 fL [facility] Neutrophils Percent Auto 49.4 45 - 73 % [facility] Imm Gran Pct Auto 0.3 0.0 - 0.4 % [facility] Lymphocytes Percent Auto 31.0 20 - 40 % [facility] Monocytes Percent Auto 15.5(H) 2 - 11 % [facility] Eosinophils Percent Auto 3.0 0 - 4 % [facility] Basophils Percent Auto 0.8 0 - 2 % [facility] NRBC Pct Auto 0.0 0.0 - 0.2 /100WBC [facility] Neutrophils Absolute Auto 3.6 2.0 - 8.3 x10*3/uL [facility] Imm Gran Abs Auto 0.02 0.00 - 0.03 X10*3/uL [facility] Lymphocytes Absolute Auto 2.3 1.2 - 4.9 X10*3/uL [facility] Monocytes Absolute Auto 1.1 0.1 - 1.2 X10*3/uL [facility] Eosinophils Absolute Auto 0.2 0.0 - 0.4 X10*3/uL [facility] Basophils Absolute Auto 0.1 0.0 - 0.2 X10*3/uL [facility] NRBC Abs Auto 0.000 0.0 - 0.012 X10*3/uL [facility] 04/10/2025 8:23 PM EST 04/10/2025 8:26 PM EST us Generic External Data Provider LAB BLOOD ORDERAB LES Final Result Performing Organization Address City/[facility] Co de Phone Number [facility] [address] [place] [phone] * Magnesium (04/10/2025 8:23 PM EST) Magnesium 2.5 1.6 - 2.6 mg/dL [facility] 04/10/2025 8:23 PM EST 04/10/2025 8:26 PM EST us Generic External Data Provider LAB BLOOD ORDERAB LES Final Result Performing Organization Address [facility] Co de Phone Number [facility] [address] [place] [phone] * (ABNORMAL) Comprehensive Metabolic Panel (04/10/2025 8:23 PM EST) Sodium 144 135 - 145 mmol/L [facility] Potassium 4.7 3.3 - 5.1 mmol/L [facility] Chloride 113(H) 96 - 108 mmol/L [facility] Carbon Dioxide 23 22 - 29 mmol/L [facility] Anion Gap 13 12 - 20 [facility] Urea Nitrogen (BUN) 16 9 - 16 mg/dL [facility] Creatinine, Serum 1.28 0.5 - 1.4 mg/dL [facility] Creatinine Clr Calc Pharmacy 74.5 [facility] Comment:Provided height and weight: 167.64 cm,103.3 kg.eGFR (calculated from the MDRD study equation) and eCrCl(calculated from the Cockcroft-Gault equation) are based ondifferent parameters and may not yield comparable results.If eCrCl result is absurd, please check patient'sheight/weight. Estimated Glomerular Filt Rate 47 [facility] Comment:Chronic Kidney Disea se: Estimated GFR < 60 mL/min/1.99t4Theleg Kidney Disease: Estimated GFR < 15 mL/min/1.73m2 Glucose 73 60 - 115 mg/dL [facility] Calcium 9.6 8.4 - 10.2 mg/dL [facility] Bilirubin, Total 0.3 0.0 - 1.0 mg/dL [facility] Aspartate Amino Transferase 33(H) 5 - 31 U/L [facility] Alanine Aminotransferase 73(H) 0 - 31 U/L [facility] Total Protein 7.7 6.5 - 8.0 g/dL [facility] Albumin Level 4.6 3.5 - 5.0 g/dL [facility] Alkaline Phosphatase 82 39 - 117 U/L [facility] 04/10/2025 8:23 PM EST 04/10/2025 8:26 PM EST us Generic External Data Provider LAB BLOOD ORDERAB LES Final Result [facility] [address] [place] [phone] * XR Chest 2 Views (04/10/2025 8:21 PM EST) Anatomical Region Laterality Modality Chest Radiographic Kelly ging 04/10/2025 8:21 PM EST Narrative 04/10/2025 8:23 PM EST [address] [address] XRay Report Signed Patient: Zee Lott MR#: [id number] : 1990 Acct:[id number] Age/Sex: 34 / F ADM Date: 04/10/25 Loc: .ED Attending Dr: Ordering Physician: Maira Storey Date of Service: 04/10/25 Procedure(s): XR chest 2V Accession Number(s): [id number] cc: Yuliana Lin EMBRYOLOGY TEACHER; Maira Storey Reason for Exam: short of [...] in OV> 04/10/252021 DD/ 20 TD/TT: 04/10/252020 [employer] Kil[employer] Drawer: Procedure Note Donotuseinterpreter, Image - 04/10/[address] [address] XRay Report Signed Patient: Zee Lott MR#: [id number] : 1990Acct:[id number] Age/Sex: 34 / FADM Date: 04/10/25 Loc: HO.ED Attending Dr: Ordering Physician: Maira Storey Date of Service: 04/10/25 Procedure(s): XR chest 2V Accession Number(s): [id number] cc: Yuliana Lin EMBRYOLOGY TEACHER; Maira Storey Reason for Exam: short of [...] in OV> 04/10/252021 DD/ 20 TD/TT: 04/10/252020 [employer] Drawer: [employer] External Provider IMG XR PROCEDURES Edited Result - Final * HM PAP/HPV (08/14/2023 11:27 AM EDT) Historical Provider HEALTH MAINTENANCE Final Result * Hepatitis Panel, General (08/07/2023 12:12 PM EDT) Hepatitis A IgM Nonreactive Nonreactive [facility] Comment:IgM antibodies to MARTINEZ V not detected; does not exclude earlyacute or recovered HAV infection. ~Hepatitis B Surface Antibody REACTIVE Nonreactive [facility] Comment:REACTIVE: > 11.99 mI U/mL Hepatitis B Core Antibody Nonreactive Nonreactive [facility] Hepatitis C Antibody Nonreactive Nonreactive [facility] Comment:Antibodies to HCV no t detected; does not exclude early acuteHCV infection. Hepatitis B Surface Ag Negative Negative [facility] Blood 08/07/2023 12:1 2 PM EDT 08/07/2023 1:20 PM EDT Angie Hager ESTHETICIAN LAB BLOOD ORDERABLES Final Res ult Performing Organization Address [facility] Co de Phone Number [facility] [address] [place] [phone] * (ABNORMAL) Lipid Panel, Standard (07/19/2023 10:10 AM EDT) Triglycerides 77 <150 mg/dL [facility] Comment:Desirable Triglyceri de: less than 150 mg/dLBorderline High Triglyceride 150-199 mg/dLHigh Triglyceride: 200-499 mg/dLVery High Triglyceride: greater than or equal to 5OO mg/dL Cholesterol 222(H) <200 mg/dL [facility] Comment:Desirable Cholestero l: less than 200 mg/dLBorderline High Cholesterol: 200-239 mg/dLHigh Cholesterol: greater than 239 mg/dL LDL Cholesterol Calculated 144(H) <100 mg/dL [facility] Comment:Desirable LDL: less than 100 mg/dLNear Optimal/Above Optimal LDL: 110- 129 mg/dLBorderline High LDL: 130-159 mg/dLHigh LDL: 160-189 mg/dLVery High LDL: greater than or equal to 190 mg/dL HDL Cholesterol 63 >40 mg/dL [facility] Comment:Desirable HDL: great er than 40 mg/dL Note: This HDL assay may give artificially low results in patients with liver disease. Blood Venous blood specimen / Unknown 07/19/2023 10:10 AM EDT 07/19/2023 11:30 AM EDT us Keiry West ESTHETICIAN LAB BLOOD ORDERABLES Final Resu lt Performing Organization Address City/[facility]/ZIP Co de Phone Number [facility] [address] [place] [phone] from Last 3 Months or Most Recently Relevant to Health Maintenance Insurance * Guarantor: Zee Esparza Account Type Relation to Patient Date of Phone Billing Address Personal/Family Self 1990 [address] [place] [address] [facility] [address] [place] [address] [place] [phone] Care Teams Paving Stone Installer Relationship Specialty Start Date End Date Yuliana Lin NP [address] [place] [phone] PCP - General Family Medicine 03/24/24
--- OUTSIDE RECORDS SUMMARY | 2025-04-10 21:19 | XMS_ITS | Encounter Summary ---
Author Organization [employer] Address [address] [facility] 7t [place] [address] Care Team Providers Care International Affairs Vice President Name Role Phone Yuliana Lin NP Primary Care Provider [phone] Reason for Visit * Reason Comments Med Refill Encounter Details Date Type Department Care Team ([facility] Contact Info) Description 05/05/2024 Refill [facility] [address] [place] [address] Yuliana Lin NP [address] [place] [address] Social History Tobacco Use Types Packs/Day Years [...] Description 06/29/2025 1:30 PM EST Office Visit [facility] [address] [place] [id number] Yuliana Lin NP [address] [place] [address] documented as of this encounter Visit Diagnoses Not on filedocumented in this encounter Additional Health Concerns Assessment Noted Time PHQ-9 Depression Total Score: 9 07/19/19 24 9:57 AM EDT documented as of this encounter Care Teams International Affairs Vice President Relationship Specialty Start Date End Date Yuliana Lin NP [address] [place] [id number] PCP - General Family Medicine 03/24/24 documented as of this encounter
--- OUTSIDE RECORDS SUMMARY | 2025-04-10 21:19 | XMS_ITS | Clinical Summary ---
Author Organization [facility] it Address [address] [place] [address] Care Team Providers Care Sap Basis Administrator Name Role Phone Unavailable Primary Care Provider [...] Cervical Cancer Screening: P ap Smear 2010 HPV Vaccines (1 - 3-dose SCD M series) 2016 Depression Screening 05/06/2024 COVID-19 Vaccine ( - 2024-2 6 season) 2025 Influenza Vaccine (#1) 2025 RSV Immunization Adult Patie nts (1 - 1-dose 75+ series) 2064 HIB Vaccines Aged Out No longer eligi [...]
--- OUTSIDE RECORDS SUMMARY | 2025-04-10 21:19 | XMS_ITS | Encounter Summary ---
Author Organization [employer] Address [address] [facility] [address] [place] [address] Care Team Providers Care Superintendent Refuse Disposal Name Role Phone Yuliana Lin CRISTOPHER Primary Care Provider [phone] Encounter Details Date Type Department Care Team (Late st Contact Info) Description 06/10/2024 Orders Only [facility] [address] [place] [address] Provider, MD Liban Social History Tobacco Use [...] the past 12 months, has t he [employer], gas, oil or water [employer] threatened to shut off services in your [...] Description 06/29/2025 1:30 PM EST Office Visit [facility] [address] [place] [address] Yuliana Lin NP [address] [place] [address] documented as of this encounter Procedures Procedure Name Priority Date/Time Associated Diagnosis Comments HM PAP/HPV Routine 08/14/2023 11:27 AM EDT documented in this encounter Results * HM PAP/HPV (08/14/2023 11:27 AM EDT) us Historical Provider HEALTH MAINTENANCE Final Result documented in this encounter Visit Diagnoses Not on filedocumented in this encounter Additional Health Concerns Assessment Noted Time PHQ-9 Depression Total Score: 10 025 10:49 AM EST documented as of this encounter Care Teams Superintendent Refuse Disposal Relationship Specialty Start Date End Date Yuliana Lin NP [address] [place] [address] PCP - General Family Medicine 03/24/24 documented as of this encounter
--- OUTSIDE RECORDS SUMMARY | 2025-04-10 21:19 | XMS_ITS | Encounter Summary ---
Author Organization [employer] Address [address] [facility] 7t [place] [address] Care Team Providers Care Diploma Dental Assistant Name Role Phone Yuliana Lin NP Primary Care Provider Reason for Visit * Reason Onset Date Comments Med Refill 01/11/2025 Encounter Details Date Type Department Care Team ([facility] st Contact Info) Description 01/11/2025 Refill [facility] [address] [place] [address] Yuliana Lin NP [address] [place] [address] Social History Tobacco Use Types Packs/Day Years [...] Description 06/29/2025 1:30 PM EST Office Visit [facility] [address] [place] [address] Yuliana Lin NP [address] [place] [address] documented as of this encounter Visit Diagnoses Not on filedocumented in this encounter Additional Health Concerns Assessment Noted Time PHQ-9 Depression Total Score: 0 12/30/19 25 3:34 PM EDT documented as of this encounter Care Teams Diploma Dental Assistant Relationship Specialty Start Date End Date Yuliana Lin NP [address] [place] [phone] PCP - General Family Medicine 03/24/24 documented as of this encounter
--- OUTSIDE RECORDS SUMMARY | 2025-04-10 21:19 | XMS_ITS | Encounter Summary ---
Author Organization [employer] Address [address] [facility] 7t [place] [address] Care Team Providers Care Mitigation Supervisor Name Role Phone Yuliana Lin NP Primary Care Provider [phone] Reason for Visit * Reason Onset Date Comments Medication Question 04/06/2025 Encounter Details Date Type Department Care Team ([facility] Contact Info) Description 04/06/2025 Telephone [facility] [address] [place] [address] Yuliana Lin NP [address] [place] [address] Medication Question Social History Tobacco Use Types [...] Telephone Encounter - Hanna Kong RN - 04/08/2025 2:29 PM EST Tc to pt via [employer] ID: [id number] to let them know per PCP New prescription for doxycycline sent thank you . Pt advised to stop taking Augmentin and try the doxycycline instead. Pt advised to avoiddairy intake 1 hour prior to taking the medication and 1 hour after taking it to avoid risk of malabsorption. Pt also advised that they can take medication with food to avoid risk for GI upset. Pt verbalized understanding and denies any further questions or concerns at this time. * Telephone Encounter - Taryn Guillory RN - 04/06/2025 2:27 PM EST Call returned to pt via [employer] #[id number]. Pt reports that after taking Augmentinshe experienced an itchy throat with sob and excessive coughing. Pt reports she was not evaluated for these symptoms. Pt reports that symptoms mostly resolved when she stopped taking Augmentin. Reports that currently she only has a slight cough which is not like it was when she took the Augmentin. Denies sob, fever. Declines appointment offered today with Blue team provider citing road conditions/weather. Advised request for change of antibiotic will be sent to pcp for review. Encouraged pt to RTC/come to [facility] for evaluation if sinusitis symptoms persist. * Telephone Encounter - Emory Rubio - 04/06/2025 9:53 AM EST Tc from pt stating amoxicillin-clavulanate (Augmentin) 875-125 MG tablet , is activating her asthma. Requesting a call back to discuss alternative Contact pt at [phone] (yi) documented in this encounter Plan of Treatment Upcoming Encounters Date Type Department Care Team (Late st Contact Info) Description 06/29/2025 1:30 PM EST Office Visit [facility] [address] [place] [address] Yuliana Lin NP [address] [place] [address] documented as of this encounter Visit Diagnoses Diagnosis Acute non-recurrent frontal sinusitis- Primary documented in this encounter Additional Health Concerns Assessment Noted Time PHQ-9 Depression Total Score: 0 12/30/19 25 3:34 PM EDT documented as of this encounter Care Teams Mitigation Supervisor Relationship Specialty Start Date End Date Yuliana Lin NP [address] [place] [address] PCP - General Family Medicine 03/24/24 documented as of this encounter
--- OUTSIDE RECORDS SUMMARY | 2025-04-10 21:19 | XMS_ITS | Encounter Summary ---
Author Organization [employer] Address [address] [facility] 7t [place] [address] Care Team Providers Care Ethanol Operator Name Role Phone Yuliana Lin CRISTOPHER Primary Care Provider [phone] Reason for Visit * Reason Onset Date Comments Med Refill 04/08/2025 Encounter Details Date Type Department Care Team ([facility] st Contact Info) Description 04/08/2025 Refill [facility] [address] [place] [address] Sabiha [place] MD [address] [place] [address] Mild asthma exacerbation Social History Tobacco Use Types Packs/Day Years [...] Description 06/29/2025 1:30 PM EST Office Visit [facility] [address] [place] [address] Yuliana Lin NP [address] [place] [address] documented as of this encounter Visit Diagnoses Diagnosis Mild asthma exacerbation documented in this encounter Additional Health Concerns Assessment Noted Time PHQ-9 Depression Total Score: 0 12/30/19 25 3:34 PM EDT documented as of this encounter Care Teams Ethanol Operator Relationship Specialty Start Date End Date Yuliana Lin NP [address] [place] [address] PCP - General Family Medicine 03/24/24 documented as of this encounter
--- OUTSIDE RECORDS SUMMARY | 2025-04-10 21:19 | XMS_ITS | Encounter Summary ---
Author Organization [employer] Address [address] [facility] [address] [place] [address] Care Team Providers Care Tumbler Plater Name Role Phone Yuliana Lin CRISTOPHER Primary Care Provider [phone] Reason for Visit * Reason Onset Date Comments Med Refill 02/17/2025 Encounter Details Date Type Department Care Team ([facility] st Contact Info) Description 02/17/2025 Refill [facility] [address] [place] [address] Sabiha [place] MD [address] [place] [address] Mild asthma exacerbation Social History Tobacco Use [...] Description 06/29/2025 1:30 PM EST Office Visit [facility] [address] [place] [address] Yuliana Lin NP [address] [place] [address] documented as of this encounter Visit Diagnoses Diagnosis Mild asthma exacerbation documented in this encounter Additional Health Concerns Assessment Noted Time PHQ-9 Depression Total Score: 0 12/30/19 25 3:34 PM EDT documented as of this encounter Care Teams Tumbler Plater Relationship Specialty Start Date End Date Yuliana Lin NP [address] [place] [address] PCP - General Family Medicine 03/24/24 documented as of this encounter
[2025-04-10 22:22] LABS: Appearance Urine Clear; Glucose Urine UA Negative (Negative); PH 5.5 (5.0-9.0); Specific Gravity - Urine 1.025 (1.005-1.025)
[2025-04-10 23:35] VITALS: BP 117/75; PULSE 99; RESP 20; TEMP 36.7; O2SAT 96
[2025-04-10 23:48] LABS: CT PCR Urine NOT DETECTED (Not Detect.); NG PCR Urine NOT DETECTED (Not Detect.)
[2025-04-11 02:01] VITALS: BP 100/68; PULSE 87; RESP 18; O2SAT 96
[2025-04-11 03:07] VITALS: BP 100/68; PULSE 87; RESP 18; TEMP 36.7; O2SAT 96
[2025-04-11 10:03] LABS: Bacterial Vaginosis PCR NEGATIVE (Negative); Candida Group PCR NOT DETECTED (Not Detect); Candida glab krusei PCR NOT DETECTED (Not Detect); Trichomonas vaginalis PCR NOT DETECTED (Not Detect)
== END 2025-04-11 03:27 | disposition home or self-care (01) ==
PROVIDERS: Physician Assistant Medical; Emergency Provider Emergency Medicine; PCP Nurse Practitioner Family
DX: J45.901 Unspecified asthma with (acute) exacerbation (principal); N76.0 Acute vaginitis; R06.02 Shortness of breath; Z03.818 Encounter for observation for suspected exposure to other biological agents ruled out; R05.9 Cough, unspecified; R00.0 Tachycardia, unspecified; R30.0 Dysuria; M54.9 Dorsalgia, unspecified; Z79.51 Long term (current) use of inhaled steroids
CPT/HCPCS: 71046; 80053; 81003; 81515; 83735; 85025; 87491; 87591; 87637; 93005; 94640; 96374; 99284; 99285; J2919

== ENCOUNTER → 2025-04-10 20:07 | Outpatient (BNV) | payer MEDICAID, SELFPAY | PROVIDERS: Emergency Provider Emergency Medicine; PCP Nurse Practitioner Family; Visit Provider Internal Medicine | DX: R00.0 Tachycardia, unspecified (principal); I25.2 Old myocardial infarction | CPT/HCPCS: 93010 ==

== ENCOUNTER → 2025-04-10 20:07 | Outpatient (BNV) | payer MEDICAID, SELFPAY | PROVIDERS: PCP Nurse Practitioner Family; Visit Provider Student in an Organized Health Care Education/Training Program | DX: R06.02 Shortness of breath (principal) | CPT/HCPCS: 71046 ==